=== PATIENT | male | born 1945 | race Caucasian/White ===

== ENCOUNTER 2021-12-10 09:17 | Inpatient (IN) ==
[2021-12-10] MEDS ORDERED: Isovue-370 500 ML BOTTLE IVP ONE (09:30)
[2021-12-10 10:06] LABS: Eosinophils % 1.7 %; Mean Corpuscular Hemoglobin 30.8 pg (28.0-33.3); Monocytes % 5.7 %; Red Cell Distribution Width 14.2 % (11.5-14.5)
[2021-12-10 10:08] LABS: Basophils % 0.5 %; Eosinophils # 0.1 K/mcL (0.0-0.6); Hematocrit 42.5 % (37.5-50.1); Hemoglobin 13.9 g/dL (12.9-16.9); Immature Granulocytes % 0.9 % (0-4); Immature Platelets 8.2 % (1.1-6.1); Lymphocytes # 0.7 K/mcL (0.6-4.6); Lymphocytes % 11.5 %; Mean Corpuscular HGB Conc 32.7 g/dL (31.6-35.5); Mean Platelet Volume 11.7 fL (9.4-12.4); Monocytes # 0.3 K/mcL (0.0-1.3); Red Blood Count 4.52 M/mcL (4.19-5.50); Segmented Neutrophils % 79.7 %; White Blood Count 5.8 K/mcL (4.3-11.1)
[2021-12-10 10:10] LABS: Neutrophils # 4.6 K/mcL (1.6-8.9); Platelet Count 98 K/mcL (140-400)
[2021-12-10 10:24] LABS: Albumin 3.7 g/dL (3.5-5.7); Albumin/Globulin Ratio 1.9 (1.1-2.2); Bilirubin,Direct 0.3 mg/dL (0.0-0.2); Bilirubin,Indirect 0.8 mg/dL (0.0-1.0); Bilirubin,Total 1.1 mg/dL (0.3-1.0); Globulin 1.9 g/dL (2.4-3.5); Total Protein 5.6 g/dL (6.4-8.9)
[2021-12-10 10:26] LABS: BUN/Creatinine Ratio 15 (6-26); Blood Urea Nitrogen 14 mg/dL (8-23); Calcium 8.3 mg/dL (8.6-10.3); Carbon Dioxide 25 mEq/L (23-29); Chloride 104 mEq/L (98-107); Glucose 145 mg/dL (70-105); Osmolality,Calculated 287 (280-300); Potassium 3.4 mEq/L (3.5-5.1); Sodium 137 mEq/L (136-145); Troponin I < 0.03 ng/mL (< 0.04); eGFR For African Americans > 60 (> 60); eGFR For Non-African Americans > 60 (> 60)
[2021-12-10 12:42] LABS: Bilirubin,Urine Negative (Negative); Blood,Urine Negative (Negative); Clarity,Urine Clear (Clear); Color,Urine Yellow (Yellow); Glucose,Urine (UA) 70 mg/dL (Normal); Granular Casts,Urine Few per lpf (None Seen); Hyaline Casts,Urine Moderate per lpf (None Seen); Ketones,Urine 10 mg/dL (Negative); Leukocyte Esterase,Urine Negative (Negative); Mucus,Urine Few per lpf (None-Few); Nitrite,Urine Negative (Negative); PH,Urine 5.5 pH Units (5.0-8.0); Protein,Urine 70 mg/dL (Neg-Trace); Specific Gravity,Urine > 1.030 (1.010-1.025); Squamous Epithelial Cell,Urine Few per hpf (None-Few)
[2021-12-10] MEDS ORDERED: Naloxone 0.4 MG/ML INJ IVP PRN ×2 (13:38→20:47)
[2021-12-10] MEDS ORDERED: Ondansetron ODT 4 MG TAB.RAPDIS SL PRN ×2 (13:38→20:47)
[2021-12-10] MEDS ORDERED: Melatonin 3 MG TABLET PO PRN (13:38)
[2021-12-10] MEDS ORDERED: Dextrose 4 GM Chewable Tablets PO PRN ×4 (13:43→20:47)
[2021-12-10] MEDS ORDERED: *HR* Dextrose 50 % in Water (Syg) 50 ML SYRINGE IVP PRN (13:43)
[2021-12-10] MEDS ORDERED: D5% in Water 1,000 ML IVC PRN ×2 (13:43→20:47)
[2021-12-10] MEDS ORDERED: 0.9 % Sodium Chloride 1,000 ML IVC SCH (14:00)
[2021-12-10] MEDS ORDERED: Morphine Sulfate 2 MG/ML SYRINGE IVP ONE (14:03)
[2021-12-10 14:52] LABS: INR 1.1; Prothrombin Time 12.5 Seconds (9.4-12.1)
[2021-12-10] MEDS ORDERED: Lidocaine -MPF 4% 5 ML AMPUL ONE (15:14)
[2021-12-10] MEDS ORDERED: *HR* FentaNYL (PF) 100 MCG/2 ML VIAL ONE ×2 (15:38→17:58)
[2021-12-10] MEDS ORDERED: *HR* Propofol 200 MG/20 ML VIAL IVP ONE (15:38)
[2021-12-10] MEDS ORDERED: *HR* Rocuronium Bromide 50 MG/5 ML VIAL ONE (15:38)
[2021-12-10] MEDS ORDERED: Ondansetron 4 MG/2 ML VIAL ONE (15:38)
[2021-12-10] MEDS ORDERED: Lidocaine -MPF 2% 5 ML VIAL ONE (15:38)
[2021-12-10] MEDS ORDERED: Albuterol 2.5 MG/3 ML NEBULIZER IH ONE (15:47)
[2021-12-10] MEDS ORDERED: Albuterol 2.5 MG/3 ML NEBULIZER IH PRN (15:48)
[2021-12-10] MEDS ORDERED: Ondansetron 4 MG/2 ML VIAL IVP PRN (15:48)
[2021-12-10] MEDS: Ipratropium/Albuterol Neb 3 ML IH SCH ×3 (15:58→23:42)
[2021-12-10] MEDS ORDERED: Piperacillin/Tazobactam 3.375 GM in 0.9 % Sodium Chloride Mini Bag 100 ML IVPB SCH (16:00)
[2021-12-10] MEDS ORDERED: Ketamine HCL *QUVA* 50mg (1mL) SYRINGE ONE (16:04)
[2021-12-10] MEDS ORDERED: Albumin Human 5% 0 GM/0 ML IV.SOLN ONE (16:05)
[2021-12-10 16:38] LABS: Estimated Average Glucose 174 mg/dl; Hemoglobin A1C 7.7 %
[2021-12-10] MEDS ORDERED: CeFAZolin Syr 3,000MG/30 ML 3,000 MG/30 ML SYRINGE IVPB ONE (17:00)
[2021-12-10] MEDS ORDERED: *HR* Labetalol 20 MG/4 ML SYRINGE IVP ONE (17:25)
[2021-12-10] MEDS ORDERED: *HR* Metoprolol 5 MG/5 ML VIAL IVP ONE (17:32)
[2021-12-10] MEDS ORDERED: Acetaminophen IV 1,000 MG/100 ML BAG IVPB ONE (17:33)
[2021-12-10] MEDS ORDERED: Insulin LISPRO 300 UNITS/3 ML VIAL SUBQ SCH (18:00)
[2021-12-10] MEDS ORDERED: *HR* HYDROMORPHONE 2 MG/ML VIAL ONE (18:16)
[2021-12-10] MEDS: *HR* FentaNYL (PF) 100 MCG/2 ML VIAL IVP PRN ×2 (19:15→19:36)
[2021-12-10] MEDS ORDERED: Ketorolac 30 MG/ML VIAL IVP ONE (20:02)
[2021-12-10] MEDS: cloNIDine HCL 0.1 MG TABLET PO ONE ×3 (20:13→20:36)
[2021-12-10] MEDS ORDERED: Ringers Solution, Lactated 1,000 ML ONE (20:24)
[2021-12-10] MEDS: 0.9 % Sodium Chloride 1,000 ML IVC SCH (21:21)
[2021-12-10] MEDS: Acetaminophen IV 1,000 MG/100 ML BAG IVPB SCH (23:14)
[2021-12-10] MEDS: Piperacillin/Tazobactam 3.375 GM in 0.9 % Sodium Chloride Mini Bag 100 ML IVPB SCH (23:41)
[2021-12-11] MEDS: Insulin LISPRO 300 UNITS/3 ML VIAL SUBQ SCH ×4 (00:06→17:47)
[2021-12-11] MEDS: Ipratropium/Albuterol Neb 3 ML IH SCH ×3 (04:05→11:27)
[2021-12-11] MEDS: Acetaminophen IV 1,000 MG/100 ML BAG IVPB SCH ×3 (05:56→17:47)
[2021-12-11] MEDS: *HR* Heparin 5,000 UNIT/ML VIAL SQ SCH ×3 (05:57→20:52)
[2021-12-11] MEDS ORDERED: *HR* Heparin 5,000 UNIT/ML VIAL SQ SCH (06:00)
[2021-12-11] MEDS: 0.9 % Sodium Chloride 1,000 ML IVC SCH (06:55)
[2021-12-11 08:04] LABS: Eosinophils % 0.3 %; Immature Granulocytes % 0.3 % (0-4); Mean Corpuscular Hemoglobin 31.5 pg (28.0-33.3); Red Blood Count 4.13 M/mcL (4.19-5.50); Red Cell Distribution Width 14.4 % (11.5-14.5)
[2021-12-11 08:06] LABS: Basophils % 0.4 %; Hematocrit 38.2 % (37.5-50.1); Immature Platelets 9.6 % (1.1-6.1); Lymphocytes # 0.9 K/mcL (0.6-4.6); Mean Corpuscular Volume 92.5 fL (83.0-100.0); Monocytes # 0.5 K/mcL (0.0-1.3); Monocytes % 7.2 %; Neutrophils # 5.3 K/mcL (1.6-8.9); Segmented Neutrophils % 78.8 %; White Blood Count 6.7 K/mcL (4.3-11.1)
[2021-12-11 08:08] LABS: Platelet Count 94 K/mcL (140-400)
[2021-12-11 08:22] LABS: Alanine Aminotransferase 18 Units/L (7-52); Albumin 3.4 g/dL (3.5-5.7); Alkaline Phosphatase 73 Units/L (34-104); Aspartate Amino Transferase 13 Units/L (13-39); BUN/Creatinine Ratio 22 (6-26); Bilirubin,Total 1.3 mg/dL (0.3-1.0); Blood Urea Nitrogen 17 mg/dL (8-23); Carbon Dioxide 26 mEq/L (23-29); Chloride 101 mEq/L (98-107); Globulin 1.7 g/dL (2.4-3.5); Glucose 156 mg/dL (70-105); Magnesium 1.6 mg/dL (1.6-2.6); Osmolality,Calculated 285 (280-300); Potassium 3.6 mEq/L (3.5-5.1); Sodium 135 mEq/L (136-145); Total Protein 5.1 g/dL (6.4-8.9); eGFR For African Americans > 60 (> 60); eGFR For Non-African Americans > 60 (> 60)
[2021-12-11] MEDS: Piperacillin/Tazobactam 3.375 GM in 0.9 % Sodium Chloride Mini Bag 100 ML IVPB SCH ×2 (10:39→16:39)
[2021-12-12] MEDS: Insulin LISPRO 300 UNITS/3 ML VIAL SUBQ SCH ×4 (00:01→17:52)
[2021-12-12] MEDS: Acetaminophen IV 1,000 MG/100 ML BAG IVPB SCH ×4 (05:46→17:51)
[2021-12-12] MEDS: *HR* Heparin 5,000 UNIT/ML VIAL SQ SCH ×3 (05:47→21:16)
[2021-12-12 06:08] LABS: Hemoglobin 12.5 g/dL (12.9-16.9); Immature Granulocytes % 0.4 % (0-4); Mean Platelet Volume 11.5 fL (9.4-12.4)
[2021-12-12 06:10] LABS: Basophils % 0.8 %; Eosinophils # 0.1 K/mcL (0.0-0.6); Eosinophils % 2.1 %; Hematocrit 36.9 % (37.5-50.1); Lymphocytes # 0.7 K/mcL (0.6-4.6); Lymphocytes % 14.9 %; Mean Corpuscular HGB Conc 33.9 g/dL (31.6-35.5); Mean Corpuscular Hemoglobin 31.1 pg (28.0-33.3); Mean Corpuscular Volume 91.8 fL (83.0-100.0); Monocytes # 0.3 K/mcL (0.0-1.3); Monocytes % 6.8 %; Neutrophils # 3.5 K/mcL (1.6-8.9); Red Blood Count 4.02 M/mcL (4.19-5.50); Red Cell Distribution Width 14.1 % (11.5-14.5); White Blood Count 4.7 K/mcL (4.3-11.1)
[2021-12-12 06:29] LABS: BUN/Creatinine Ratio 17 (6-26); Blood Urea Nitrogen 12 mg/dL (8-23); Calcium 7.9 mg/dL (8.6-10.3); Carbon Dioxide 29 mEq/L (23-29); Chloride 100 mEq/L (98-107); Glucose 159 mg/dL (70-105); Magnesium 1.9 mg/dL (1.6-2.6); Osmolality,Calculated 281 (280-300); Potassium 3.3 mEq/L (3.5-5.1); Sodium 134 mEq/L (136-145); eGFR For African Americans > 60 (> 60); eGFR For Non-African Americans > 60 (> 60)
[2021-12-12 06:37] LABS: Platelet Count 83 K/mcL (140-400)
[2021-12-12] MEDS: Piperacillin/Tazobactam 3.375 GM in 0.9 % Sodium Chloride Mini Bag 100 ML IVPB SCH ×3 (08:28→16:32)
[2021-12-12] MEDS ORDERED: *HR* Labetalol 20 MG/4 ML SYRINGE IVP ONE (12:52)
[2021-12-12] MEDS: amLODIPine 5 MG TABLET PO SCH (13:48)
[2021-12-12] MEDS: *HR* Labetalol 20 MG/4 ML SYRINGE IVP PRN (17:59)
[2021-12-13] MEDS: Acetaminophen IV 1,000 MG/100 ML BAG IVPB SCH ×4 (00:03→18:08)
[2021-12-13] MEDS: Piperacillin/Tazobactam 3.375 GM in 0.9 % Sodium Chloride Mini Bag 100 ML IVPB SCH ×3 (00:03→16:16)
[2021-12-13] MEDS: Insulin LISPRO 300 UNITS/3 ML VIAL SUBQ SCH ×4 (00:16→18:18)
[2021-12-13 06:38] LABS: Basophils # 0.1 K/mcL (0.0-0.2); Basophils % 1.2 %; Eosinophils # 0.2 K/mcL (0.0-0.6); Eosinophils % 3.5 %; Hematocrit 40.8 % (37.5-50.1); Hemoglobin 13.6 g/dL (12.9-16.9); Immature Granulocytes % 0.7 % (0-4); Immature Platelets 9.3 % (1.1-6.1); Lymphocytes # 0.9 K/mcL (0.6-4.6); Lymphocytes % 20.7 %; Mean Corpuscular HGB Conc 33.3 g/dL (31.6-35.5); Mean Corpuscular Hemoglobin 30.7 pg (28.0-33.3); Mean Corpuscular Volume 92.1 fL (83.0-100.0); Mean Platelet Volume 11.6 fL (9.4-12.4); Monocytes # 0.3 K/mcL (0.0-1.3); Monocytes % 7.2 %; Neutrophils # 2.9 K/mcL (1.6-8.9); Red Blood Count 4.43 M/mcL (4.19-5.50); Red Cell Distribution Width 13.9 % (11.5-14.5); Segmented Neutrophils % 66.7 %; White Blood Count 4.3 K/mcL (4.3-11.1)
[2021-12-13 06:39] LABS: Platelet Count 84 K/mcL (140-400)
[2021-12-13] MEDS: *HR* Heparin 5,000 UNIT/ML VIAL SQ SCH ×3 (06:49→20:42)
[2021-12-13 07:30] LABS: BUN/Creatinine Ratio 18 (6-26); Blood Urea Nitrogen 11 mg/dL (8-23); Calcium 8.5 mg/dL (8.6-10.3); Carbon Dioxide 23 mEq/L (23-29); Chloride 99 mEq/L (98-107); Glucose 188 mg/dL (70-105); Magnesium 1.9 mg/dL (1.6-2.6); Osmolality,Calculated 280 (280-300); Potassium 3.5 mEq/L (3.5-5.1); Sodium 133 mEq/L (136-145); eGFR For African Americans > 60 (> 60); eGFR For Non-African Americans > 60 (> 60)
[2021-12-13] MEDS: amLODIPine 5 MG TABLET PO SCH (08:27)
[2021-12-13] MEDS: *HR* Labetalol 20 MG/4 ML SYRINGE IVP PRN (13:52)
[2021-12-13] MEDS: carvediloL 6.25 MG TABLET PO SCH ×2 (16:15→20:42)
[2021-12-14] MEDS: Acetaminophen IV 1,000 MG/100 ML BAG IVPB SCH ×4 (00:15→18:40)
[2021-12-14] MEDS: Insulin LISPRO 300 UNITS/3 ML VIAL SUBQ SCH ×6 (00:16→23:20)
[2021-12-14] MEDS: *HR* Labetalol 20 MG/4 ML SYRINGE IVP PRN ×2 (00:38→23:20)
[2021-12-14] MEDS: Piperacillin/Tazobactam 3.375 GM in 0.9 % Sodium Chloride Mini Bag 100 ML IVPB SCH ×3 (00:38→18:39)
[2021-12-14 01:52] LABS: Basophils % 0.7 %; Eosinophils # 0.1 K/mcL (0.0-0.6); Eosinophils % 1.4 %; Hematocrit 42.2 % (37.5-50.1); Hemoglobin 14.1 g/dL (12.9-16.9); Immature Granulocytes % 0.7 % (0-4); Lymphocytes # 0.6 K/mcL (0.6-4.6); Lymphocytes % 10.1 %; Mean Corpuscular HGB Conc 33.4 g/dL (31.6-35.5); Mean Corpuscular Hemoglobin 30.5 pg (28.0-33.3); Mean Corpuscular Volume 91.1 fL (83.0-100.0); Mean Platelet Volume 11.8 fL (9.4-12.4); Monocytes # 0.5 K/mcL (0.0-1.3); Monocytes % 7.7 %; Neutrophils # 4.6 K/mcL (1.6-8.9); Platelet Count 116 K/mcL (140-400); Red Blood Count 4.63 M/mcL (4.19-5.50); Red Cell Distribution Width 13.9 % (11.5-14.5); Segmented Neutrophils % 79.4 %; White Blood Count 5.8 K/mcL (4.3-11.1)
[2021-12-14 02:40] LABS: BUN/Creatinine Ratio 24 (6-26); Blood Urea Nitrogen 18 mg/dL (8-23); Calcium 8.5 mg/dL (8.6-10.3); Carbon Dioxide 27 mEq/L (23-29); Chloride 95 mEq/L (98-107); Glucose 263 mg/dL (70-105); Osmolality,Calculated 283 (280-300); Potassium 3.5 mEq/L (3.5-5.1); Sodium 131 mEq/L (136-145); eGFR For African Americans > 60 (> 60); eGFR For Non-African Americans > 60 (> 60)
[2021-12-14] MEDS: *HR* Heparin 5,000 UNIT/ML VIAL SQ SCH ×3 (06:26→21:52)
[2021-12-14] MEDS: carvediloL 6.25 MG TABLET PO SCH ×2 (08:50→22:07)
[2021-12-14] MEDS: amLODIPine 5 MG TABLET PO SCH (08:50)
[2021-12-14 10:32] LABS: Magnesium 1.9 mg/dL (1.6-2.6); Phosphorous 3.6 mg/dL (2.7-4.5); Triglycerides 129 mg/dL (< 150)
[2021-12-14] MEDS: Metoclopramide 10 MG/2 ML VIAL IVP SCH ×3 (11:54→23:20)
[2021-12-14] MEDS ORDERED: D10% in Water 500 ML IVC PRN (12:11)
[2021-12-14] MEDS ORDERED: Lidocaine -MPF 1% 5 ML AMPUL INFILT ONE (12:53)
[2021-12-14] MEDS ORDERED: Clinimix E 5%-15% SOLUTION 2,000 ML with MVI, adult with vitamin K 10 ML IVC SCH (17:00)
[2021-12-15] MEDS: Piperacillin/Tazobactam 3.375 GM in 0.9 % Sodium Chloride Mini Bag 100 ML IVPB SCH ×3 (00:12→17:27)
[2021-12-15] MEDS: Acetaminophen IV 1,000 MG/100 ML BAG IVPB SCH ×4 (00:14→19:40)
[2021-12-15] MEDS: Insulin LISPRO 300 UNITS/3 ML VIAL SUBQ SCH ×5 (03:18→21:32)
[2021-12-15 05:01] LABS: Hemoglobin 14.2 g/dL (12.9-16.9); Red Cell Distribution Width 14.4 % (11.5-14.5)
[2021-12-15 05:02] LABS: Basophils % 0.6 %; Eosinophils # 0.1 K/mcL (0.0-0.6); Eosinophils % 1.2 %; Hematocrit 42.7 % (37.5-50.1); Immature Granulocytes % 0.3 % (0-4); Immature Platelets 7.9 % (1.1-6.1); Lymphocytes # 0.7 K/mcL (0.6-4.6); Mean Corpuscular HGB Conc 33.3 g/dL (31.6-35.5); Mean Corpuscular Hemoglobin 30.7 pg (28.0-33.3); Mean Corpuscular Volume 92.4 fL (83.0-100.0); Mean Platelet Volume 11.3 fL (9.4-12.4); Monocytes # 0.6 K/mcL (0.0-1.3); Monocytes % 7.6 %; Platelet Count 132 K/mcL (140-400); Red Blood Count 4.62 M/mcL (4.19-5.50); Segmented Neutrophils % 80.3 %; White Blood Count 7.3 K/mcL (4.3-11.1)
[2021-12-15 05:04] LABS: Neutrophils # 5.9 K/mcL (1.6-8.9)
[2021-12-15 05:21] LABS: Alanine Aminotransferase 35 Units/L (7-52); Albumin 3.4 g/dL (3.5-5.7); Albumin/Globulin Ratio 1.5 (1.1-2.2); Alkaline Phosphatase 64 Units/L (34-104); Aspartate Amino Transferase 41 Units/L (13-39); BUN/Creatinine Ratio 37 (6-26); Blood Urea Nitrogen 31 mg/dL (8-23); Calcium 8.9 mg/dL (8.6-10.3); Carbon Dioxide 33 mEq/L (23-29); Chloride 95 mEq/L (98-107); Globulin 2.2 g/dL (2.4-3.5); Glucose 233 mg/dL (70-105); Magnesium 2.1 mg/dL (1.6-2.6); Osmolality,Calculated 294 (280-300); Phosphorous 3.5 mg/dL (2.7-4.5); Sodium 135 mEq/L (136-145); Total Protein 5.6 g/dL (6.4-8.9); eGFR For African Americans > 60 (> 60); eGFR For Non-African Americans > 60 (> 60)
[2021-12-15] MEDS: carvediloL 6.25 MG TABLET PO SCH ×2 (07:22→19:40)
[2021-12-15] MEDS: amLODIPine 5 MG TABLET PO SCH (07:22)
[2021-12-15] MEDS: *HR* Heparin 5,000 UNIT/ML VIAL SQ SCH ×3 (07:46→23:53)
[2021-12-15] MEDS: Metoclopramide 10 MG/2 ML VIAL IVP SCH ×3 (07:46→17:49)
[2021-12-15] MEDS: *HR* Labetalol 20 MG/4 ML SYRINGE IVP PRN (09:19)
[2021-12-15] MEDS ORDERED: Clinimix E 5%-15% SOLUTION 2,000 ML IVC SCH (17:00)
[2021-12-16] MEDS: Metoclopramide 10 MG/2 ML VIAL IVP SCH ×2 (00:08→05:10)
[2021-12-16] MEDS: Insulin LISPRO 300 UNITS/3 ML VIAL SUBQ SCH ×6 (00:08→22:14)
[2021-12-16] MEDS: Acetaminophen IV 1,000 MG/100 ML BAG IVPB SCH ×4 (00:09→17:48)
[2021-12-16] MEDS: Piperacillin/Tazobactam 3.375 GM in 0.9 % Sodium Chloride Mini Bag 100 ML IVPB SCH ×3 (02:40→17:48)
[2021-12-16] MEDS: *HR* Labetalol 20 MG/4 ML SYRINGE IVP PRN ×2 (03:10→12:51)
[2021-12-16] MEDS: *HR* Heparin 5,000 UNIT/ML VIAL SQ SCH ×3 (05:00→22:14)
[2021-12-16 05:59] LABS: Alanine Aminotransferase 51 Units/L (7-52); Albumin 3.2 g/dL (3.5-5.7); Albumin/Globulin Ratio 1.5 (1.1-2.2); Alkaline Phosphatase 65 Units/L (34-104); Aspartate Amino Transferase 40 Units/L (13-39); BUN/Creatinine Ratio 39 (6-26); Blood Urea Nitrogen 26 mg/dL (8-23); Calcium 7.8 mg/dL (8.6-10.3); Carbon Dioxide 29 mEq/L (23-29); Chloride 93 mEq/L (98-107); Globulin 2.2 g/dL (2.4-3.5); Glucose 297 mg/dL (70-105); Magnesium 1.8 mg/dL (1.6-2.6); Osmolality,Calculated 294 (280-300); Phosphorous 2.7 mg/dL (2.7-4.5); Potassium 2.9 mEq/L (3.5-5.1); Sodium 134 mEq/L (136-145); Total Protein 5.4 g/dL (6.4-8.9); eGFR For African Americans > 60 (> 60); eGFR For Non-African Americans > 60 (> 60)
[2021-12-16] MEDS: NIFEdipine XL (24 HR) 60 MG TAB.ER.24 PO SCH ×2 (06:21→06:35)
[2021-12-16] MEDS ORDERED: Calcium Gluconate 1gm/50mL 1 GM/50 ML BAG IVPB ONE (06:36)
[2021-12-16 06:46] LABS: Basophils % 0.4 %; Hematocrit 39.6 % (37.5-50.1); Hemoglobin 13.3 g/dL (12.9-16.9); Immature Granulocytes % 0.6 % (0-4); Immature Platelets 6.9 % (1.1-6.1); Lymphocytes # 0.3 K/mcL (0.6-4.6); Lymphocytes % 6.5 %; Mean Corpuscular HGB Conc 33.6 g/dL (31.6-35.5); Mean Corpuscular Hemoglobin 30.9 pg (28.0-33.3); Mean Corpuscular Volume 91.9 fL (83.0-100.0); Mean Platelet Volume 11.3 fL (9.4-12.4); Monocytes # 0.5 K/mcL (0.0-1.3); Monocytes % 9.1 %; Neutrophils # 4.1 K/mcL (1.6-8.9); Platelet Count 108 K/mcL (140-400); Red Blood Count 4.31 M/mcL (4.19-5.50); Red Cell Distribution Width 14.5 % (11.5-14.5); Segmented Neutrophils % 83.4 %; White Blood Count 4.9 K/mcL (4.3-11.1)
[2021-12-16] MEDS ORDERED: Methylnaltrexone 12 MG/0.6 ML SYRINGE SQ ONE (07:40)
[2021-12-16] MEDS: lisinopriL 5 MG TABLET PO SCH (08:28)
[2021-12-16] MEDS: carvediloL 6.25 MG TABLET PO SCH ×2 (08:28→22:14)
[2021-12-16] MEDS ORDERED: Pantoprazole 80 MG in 0.9 % Sodium Chloride 50 ML IVPB ONE (09:15)
[2021-12-16] MEDS: Insulin DETEMIR 100 UNIT/ML X5UNITS SUBQ SCH ×2 (10:06→22:17)
[2021-12-16] MEDS ORDERED: Metoclopramide 20 MG in 0.9 % Sodium Chloride 50 ML IVPB SCH (12:00)
[2021-12-16] MEDS ORDERED: Clinimix E 5%-15% SOLUTION 2,000 ML with MVI, adult with vitamin K 10 ML IVC SCH (17:00)
[2021-12-16] MEDS ORDERED: Clinimix 5%-20% SOLUTION 2,000 ML with MVI, adult with vitamin K 10 ML IVC SCH (17:00)
[2021-12-16 17:01] LABS: BUN/Creatinine Ratio 37 (6-26); Blood Urea Nitrogen 30 mg/dL (8-23); Calcium 8.8 mg/dL (8.6-10.3); Carbon Dioxide 31 mEq/L (23-29); Chloride 97 mEq/L (98-107); Glucose 290 mg/dL (70-105); Osmolality,Calculated 299 (280-300); Potassium 3.3 mEq/L (3.5-5.1); Sodium 136 mEq/L (136-145); eGFR For African Americans > 60 (> 60); eGFR For Non-African Americans > 60 (> 60)
[2021-12-16] MEDS: Pantoprazole 40 MG VIAL IVP SCH (17:48)
[2021-12-17] MEDS: Acetaminophen IV 1,000 MG/100 ML BAG IVPB SCH ×5 (00:57→23:07)
[2021-12-17] MEDS: Insulin LISPRO 300 UNITS/3 ML VIAL SUBQ SCH ×6 (00:59→21:09)
[2021-12-17] MEDS: Piperacillin/Tazobactam 3.375 GM in 0.9 % Sodium Chloride Mini Bag 100 ML IVPB SCH ×3 (01:21→17:52)
[2021-12-17] MEDS: *HR* Heparin 5,000 UNIT/ML VIAL SQ SCH ×3 (05:46→21:09)
[2021-12-17] MEDS: Pantoprazole 40 MG VIAL IVP SCH ×2 (05:47→17:52)
[2021-12-17 07:28] LABS: Mean Corpuscular HGB Conc 33.4 g/dL (31.6-35.5); Red Cell Distribution Width 14.8 % (11.5-14.5)
[2021-12-17 07:30] LABS: Hematocrit 40.1 % (37.5-50.1); Hemoglobin 13.4 g/dL (12.9-16.9); Immature Platelets 7.3 % (1.1-6.1); Mean Corpuscular Hemoglobin 31.5 pg (28.0-33.3); Mean Corpuscular Volume 94.4 fL (83.0-100.0); Mean Platelet Volume 11.8 fL (9.4-12.4); Platelet Count 110 K/mcL (140-400); Red Blood Count 4.25 M/mcL (4.19-5.50); White Blood Count 6.8 K/mcL (4.3-11.1)
[2021-12-17 08:23] LABS: Alanine Aminotransferase 38 Units/L (7-52); Albumin 3.2 g/dL (3.5-5.7); Albumin/Globulin Ratio 1.5 (1.1-2.2); Alkaline Phosphatase 66 Units/L (34-104); Aspartate Amino Transferase 21 Units/L (13-39); BUN/Creatinine Ratio 41 (6-26); Bilirubin,Total 0.9 mg/dL (0.3-1.0); Blood Urea Nitrogen 34 mg/dL (8-23); Calcium 8.5 mg/dL (8.6-10.3); Carbon Dioxide 31 mEq/L (23-29); Chloride 96 mEq/L (98-107); Globulin 2.1 g/dL (2.4-3.5); Glucose 235 mg/dL (70-105); Magnesium 2.4 mg/dL (1.6-2.6); Osmolality,Calculated 295 (280-300); Phosphorous 3.5 mg/dL (2.7-4.5); Potassium 3.1 mEq/L (3.5-5.1); Sodium 135 mEq/L (136-145); Total Protein 5.3 g/dL (6.4-8.9); eGFR For African Americans > 60 (> 60); eGFR For Non-African Americans > 60 (> 60)
[2021-12-17] MEDS: carvediloL 6.25 MG TABLET PO SCH ×2 (08:37→23:54)
[2021-12-17] MEDS: lisinopriL 5 MG TABLET PO SCH (08:37)
[2021-12-17 09:16] LABS: Lymphocytes # 0.7 K/mcL (0.6-4.6); Neutrophils # 5.1 K/mcL (1.6-8.9); Platelet Estimate Slight Decrease (Normal)
[2021-12-17] MEDS ORDERED: Chloraseptic Spray 177 ML BOTTLE MM PRN (10:43)
[2021-12-17] MEDS ORDERED: Saliva Stimulant 44.3ml BOTTLE PO PRN (10:43)
[2021-12-17] MEDS: Insulin DETEMIR 100 UNIT/ML X5UNITS SUBQ SCH ×2 (11:02→21:24)
[2021-12-17] MEDS: NIFEdipine XL (24 HR) 60 MG TAB.ER.24 PO SCH (11:15)
[2021-12-17] MEDS ORDERED: Clinimix E 5%-15% SOLUTION 2,000 ML IVC SCH (17:00)
[2021-12-17] MEDS ORDERED: 0.9 % Sodium Chloride 500 ML IVC ONE (19:02)
[2021-12-18] MEDS: Insulin LISPRO 300 UNITS/3 ML VIAL SUBQ SCH ×6 (00:46→21:03)
[2021-12-18] MEDS: Piperacillin/Tazobactam 3.375 GM in 0.9 % Sodium Chloride Mini Bag 100 ML IVPB SCH ×3 (02:28→17:54)
[2021-12-18 05:03] LABS: Hemoglobin 13.3 g/dL (12.9-16.9); Mean Platelet Volume 11.7 fL (9.4-12.4); Red Cell Distribution Width 14.9 % (11.5-14.5)
[2021-12-18 05:05] LABS: Basophils % 0.4 %; Eosinophils % 0.4 %; Hematocrit 40.1 % (37.5-50.1); Immature Granulocytes % 0.6 % (0-4); Immature Platelets 9.1 % (1.1-6.1); Lymphocytes # 0.7 K/mcL (0.6-4.6); Mean Corpuscular HGB Conc 33.2 g/dL (31.6-35.5); Mean Corpuscular Hemoglobin 30.5 pg (28.0-33.3); Monocytes # 0.9 K/mcL (0.0-1.3); Monocytes % 10.4 %; Neutrophils # 6.8 K/mcL (1.6-8.9); Platelet Count 107 K/mcL (140-400); Red Blood Count 4.36 M/mcL (4.19-5.50); Segmented Neutrophils % 80.2 %; White Blood Count 8.5 K/mcL (4.3-11.1)
[2021-12-18 05:24] LABS: Alanine Aminotransferase 33 Units/L (7-52); Albumin/Globulin Ratio 1.3 (1.1-2.2); Alkaline Phosphatase 74 Units/L (34-104); Aspartate Amino Transferase 17 Units/L (13-39); BUN/Creatinine Ratio 58 (6-26); Bilirubin,Total 0.8 mg/dL (0.3-1.0); Blood Urea Nitrogen 41 mg/dL (8-23); Calcium 8.6 mg/dL (8.6-10.3); Carbon Dioxide 29 mEq/L (23-29); Chloride 97 mEq/L (98-107); Globulin 2.4 g/dL (2.4-3.5); Glucose 211 mg/dL (70-105); Magnesium 2.2 mg/dL (1.6-2.6); Osmolality,Calculated 296 (280-300); Phosphorous 3.8 mg/dL (2.7-4.5); Potassium 3.2 mEq/L (3.5-5.1); Sodium 135 mEq/L (136-145); Total Protein 5.4 g/dL (6.4-8.9); eGFR For African Americans > 60 (> 60); eGFR For Non-African Americans > 60 (> 60)
[2021-12-18 05:46] LABS: Platelet Estimate Decreased (Normal)
[2021-12-18] MEDS: *HR* Heparin 5,000 UNIT/ML VIAL SQ SCH ×3 (06:39→21:01)
[2021-12-18] MEDS: Pantoprazole 40 MG VIAL IVP SCH ×2 (06:46→17:55)
[2021-12-18] MEDS ORDERED: Isovue-370 500 ML BOTTLE IVP ONE (06:47)
[2021-12-18] MEDS: Acetaminophen IV 1,000 MG/100 ML BAG IVPB SCH ×3 (06:52→18:23)
[2021-12-18] MEDS: Insulin DETEMIR 100 UNIT/ML X5UNITS SUBQ SCH ×2 (09:56→21:03)
[2021-12-18] MEDS: carvediloL 6.25 MG TABLET PO SCH ×2 (09:59→21:01)
[2021-12-18] MEDS: NIFEdipine XL (24 HR) 60 MG TAB.ER.24 PO SCH (09:59)
[2021-12-18] MEDS: lisinopriL 5 MG TABLET PO SCH (09:59)
[2021-12-18] MEDS ORDERED: Albumin 25% 25gram/100mL 25 GM/100 ML IV.SOLN IVPB ONE (10:16)
[2021-12-18] MEDS ORDERED: Furosemide 40 MG/4 ML VIAL IVP ONE (12:00)
[2021-12-18] MEDS ORDERED: Haloperidol Lactate 5 MG/ML VIAL IVP ONE (14:32)
[2021-12-18] MEDS: Nicotine 21 MG PATCH.TD24 TD SCH (15:01)
[2021-12-18] MEDS ORDERED: Clinimix E 5%-15% SOLUTION 2,000 ML, Amino Acids 10% 200 ML with MVI, adult with vita... IVC SCH (17:00)
[2021-12-18] MEDS ORDERED: Insulin DETEMIR 100 UNIT/ML X5UNITS SUBQ SCH (21:00)
[2021-12-19] MEDS: Acetaminophen IV 1,000 MG/100 ML BAG IVPB SCH ×4 (00:48→16:45)
[2021-12-19] MEDS: Insulin LISPRO 300 UNITS/3 ML VIAL SUBQ SCH ×7 (00:49→23:28)
[2021-12-19] MEDS: Piperacillin/Tazobactam 3.375 GM in 0.9 % Sodium Chloride Mini Bag 100 ML IVPB SCH ×3 (01:41→16:42)
[2021-12-19] MEDS: *HR* Heparin 5,000 UNIT/ML VIAL SQ SCH ×3 (05:34→20:47)
[2021-12-19 05:40] LABS: Basophils % 0.4 %; Eosinophils # 0.1 K/mcL (0.0-0.6); Hematocrit 37.9 % (37.5-50.1); Hemoglobin 12.6 g/dL (12.9-16.9); Immature Platelets 8.5 % (1.1-6.1); Lymphocytes # 0.6 K/mcL (0.6-4.6); Lymphocytes % 7.5 %; Mean Corpuscular HGB Conc 33.2 g/dL (31.6-35.5); Mean Corpuscular Hemoglobin 30.7 pg (28.0-33.3); Mean Corpuscular Volume 92.4 fL (83.0-100.0); Mean Platelet Volume 11.5 fL (9.4-12.4); Monocytes # 0.8 K/mcL (0.0-1.3); Monocytes % 10.6 %; Neutrophils # 5.9 K/mcL (1.6-8.9); Platelet Count 104 K/mcL (140-400); Red Cell Distribution Width 14.7 % (11.5-14.5); Segmented Neutrophils % 79.5 %; White Blood Count 7.4 K/mcL (4.3-11.1)
[2021-12-19 06:26] LABS: BUN/Creatinine Ratio 53 (6-26); Blood Urea Nitrogen 32 mg/dL (8-23); Calcium 8.2 mg/dL (8.6-10.3); Carbon Dioxide 29 mEq/L (23-29); Chloride 98 mEq/L (98-107); Glucose 246 mg/dL (70-105); Osmolality,Calculated 293 (280-300); Phosphorous 4.4 mg/dL (2.7-4.5); Potassium 3.4 mEq/L (3.5-5.1); Sodium 134 mEq/L (136-145); eGFR For African Americans > 60 (> 60); eGFR For Non-African Americans > 60 (> 60)
[2021-12-19] MEDS: Pantoprazole 40 MG VIAL IVP SCH ×2 (06:34→16:43)
[2021-12-19] MEDS: carvediloL 6.25 MG TABLET PO SCH ×2 (07:39→20:44)
[2021-12-19] MEDS: NIFEdipine XL (24 HR) 60 MG TAB.ER.24 PO SCH (07:39)
[2021-12-19] MEDS: lisinopriL 5 MG TABLET PO SCH (07:39)
[2021-12-19] MEDS: Nicotine 21 MG PATCH.TD24 TD SCH (07:44)
[2021-12-19] MEDS: Insulin DETEMIR 100 UNIT/ML X5UNITS SUBQ SCH ×2 (07:47→20:48)
[2021-12-19] MEDS: *HR* Labetalol 20 MG/4 ML SYRINGE IVP PRN (07:47)
[2021-12-19] MEDS ORDERED: Albumin 25% 25gram/100mL 25 GM/100 ML IV.SOLN IVPB ONE (09:25)
[2021-12-19] MEDS ORDERED: Furosemide 40 MG/4 ML VIAL IVP ONE (11:00)
[2021-12-19] MEDS ORDERED: CLINIMIX E IVC SCH (17:00)
[2021-12-19] MEDS ORDERED: AMINO ACIDS 10% IVC SCH (17:00)
[2021-12-20] MEDS: Acetaminophen IV 1,000 MG/100 ML BAG IVPB SCH ×4 (00:28→17:06)
[2021-12-20] MEDS: Piperacillin/Tazobactam 3.375 GM in 0.9 % Sodium Chloride Mini Bag 100 ML IVPB SCH ×3 (01:41→17:03)
[2021-12-20 03:08] LABS: Basophils % 0.3 %; Eosinophils % 0.5 %; Hematocrit 36.5 % (37.5-50.1); Hemoglobin 12.5 g/dL (12.9-16.9); Immature Granulocytes % 0.9 % (0-4); Lymphocytes # 0.6 K/mcL (0.6-4.6); Mean Corpuscular HGB Conc 34.2 g/dL (31.6-35.5); Mean Corpuscular Hemoglobin 31.4 pg (28.0-33.3); Mean Corpuscular Volume 91.7 fL (83.0-100.0); Mean Platelet Volume 12.2 fL (9.4-12.4); Monocytes # 0.9 K/mcL (0.0-1.3); Monocytes % 14.2 %; Neutrophils # 4.9 K/mcL (1.6-8.9); Platelet Count 121 K/mcL (140-400); Red Blood Count 3.98 M/mcL (4.19-5.50); Red Cell Distribution Width 14.6 % (11.5-14.5); Segmented Neutrophils % 75.1 %; White Blood Count 6.5 K/mcL (4.3-11.1)
[2021-12-20 03:29] LABS: BUN/Creatinine Ratio 50 (6-26); Blood Urea Nitrogen 32 mg/dL (8-23); Calcium 8.5 mg/dL (8.6-10.3); Carbon Dioxide 30 mEq/L (23-29); Chloride 94 mEq/L (98-107); Glucose 322 mg/dL (70-105); Magnesium 2.4 mg/dL (1.6-2.6); Osmolality,Calculated 295 (280-300); Phosphorous 3.3 mg/dL (2.7-4.5); Potassium 3.5 mEq/L (3.5-5.1); Sodium 133 mEq/L (136-145); eGFR For African Americans > 60 (> 60); eGFR For Non-African Americans > 60 (> 60)
[2021-12-20] MEDS: Insulin LISPRO 300 UNITS/3 ML VIAL SUBQ SCH ×5 (04:06→20:14)
[2021-12-20] MEDS: *HR* Heparin 5,000 UNIT/ML VIAL SQ SCH ×3 (04:57→22:43)
[2021-12-20] MEDS: Pantoprazole 40 MG VIAL IVP SCH ×2 (04:57→17:03)
[2021-12-20] MEDS: Insulin DETEMIR 100 UNIT/ML X5UNITS SUBQ SCH ×2 (07:47→20:13)
[2021-12-20] MEDS: carvediloL 6.25 MG TABLET PO SCH ×2 (07:49→20:16)
[2021-12-20] MEDS: lisinopriL 5 MG TABLET PO SCH (07:49)
[2021-12-20] MEDS: NIFEdipine XL (24 HR) 60 MG TAB.ER.24 PO SCH (07:49)
[2021-12-20] MEDS: Nicotine 21 MG PATCH.TD24 TD SCH (07:49)
[2021-12-20] MEDS ORDERED: CLINIMIX E IVC SCH (17:00)
[2021-12-20] MEDS ORDERED: AMINO ACIDS 10% IVC SCH (17:00)
[2021-12-20] MEDS: *HR* Labetalol 20 MG/4 ML SYRINGE IVP PRN (18:05)
[2021-12-20] MEDS ORDERED: Vancomycin 1,750 MG in 0.9 % Sodium Chloride 250 ML IVPB SCH (19:00)
[2021-12-20 19:42] LABS: Basophils % 0.5 %; Eosinophils % 0.3 %; Hematocrit 39.7 % (37.5-50.1); Hemoglobin 13.2 g/dL (12.9-16.9); Immature Granulocytes % 1.1 % (0-4); Lymphocytes # 0.6 K/mcL (0.6-4.6); Lymphocytes % 9.6 %; Mean Corpuscular HGB Conc 33.2 g/dL (31.6-35.5); Mean Corpuscular Hemoglobin 30.6 pg (28.0-33.3); Mean Corpuscular Volume 91.9 fL (83.0-100.0); Mean Platelet Volume 12.2 fL (9.4-12.4); Monocytes # 0.8 K/mcL (0.0-1.3); Monocytes % 12.8 %; Neutrophils # 4.8 K/mcL (1.6-8.9); Platelet Count 138 K/mcL (140-400); Red Blood Count 4.32 M/mcL (4.19-5.50); Red Cell Distribution Width 14.7 % (11.5-14.5); Segmented Neutrophils % 75.7 %; White Blood Count 6.4 K/mcL (4.3-11.1)
[2021-12-20 20:04] LABS: Platelet Estimate Decreased (Normal)
[2021-12-20 20:07] LABS: Alanine Aminotransferase 49 Units/L (7-52); Albumin 3.1 g/dL (3.5-5.7); Albumin/Globulin Ratio 1.3 (1.1-2.2); Alkaline Phosphatase 142 Units/L (34-104); Aspartate Amino Transferase 50 Units/L (13-39); BUN/Creatinine Ratio 49 (6-26); Bilirubin,Total 1.4 mg/dL (0.3-1.0); Blood Urea Nitrogen 38 mg/dL (8-23); Calcium 8.6 mg/dL (8.6-10.3); Carbon Dioxide 31 mEq/L (23-29); Chloride 93 mEq/L (98-107); Globulin 2.3 g/dL (2.4-3.5); Glucose 354 mg/dL (70-105); Magnesium 2.4 mg/dL (1.6-2.6); Osmolality,Calculated 295 (280-300); Phosphorous 3.1 mg/dL (2.7-4.5); Potassium 3.7 mEq/L (3.5-5.1); Sodium 131 mEq/L (136-145); Total Protein 5.4 g/dL (6.4-8.9); eGFR For African Americans > 60 (> 60); eGFR For Non-African Americans > 60 (> 60)
[2021-12-20] MEDS: Vancomycin 1,750 MG/517.5 ML IV.SOLN IVPB SCH ×2 (20:15→22:22)
[2021-12-20 20:37] LABS: Troponin I 0.03 ng/mL (< 0.04)
[2021-12-20] MEDS: Ipratropium/Albuterol Neb 3 ML IH PRN (23:41)
[2021-12-21] MEDS: Acetaminophen IV 1,000 MG/100 ML BAG IVPB SCH ×4 (00:23→17:30)
[2021-12-21] MEDS: Insulin LISPRO 300 UNITS/3 ML VIAL SUBQ SCH ×6 (00:25→20:38)
[2021-12-21] MEDS: Piperacillin/Tazobactam 3.375 GM in 0.9 % Sodium Chloride Mini Bag 100 ML IVPB SCH ×3 (01:44→17:30)
[2021-12-21] MEDS: *HR* Heparin 5,000 UNIT/ML VIAL SQ SCH ×3 (06:17→20:47)
[2021-12-21] MEDS: Pantoprazole 40 MG VIAL IVP SCH ×2 (06:17→17:30)
[2021-12-21 07:00] LABS: Basophils # 0.1 K/mcL (0.0-0.2); Basophils % 0.6 %; Eosinophils % 0.5 %; Hematocrit 39.6 % (37.5-50.1); Hemoglobin 13.2 g/dL (12.9-16.9); Immature Granulocytes % 0.9 % (0-4); Lymphocytes # 0.6 K/mcL (0.6-4.6); Lymphocytes % 7.8 %; Mean Corpuscular HGB Conc 33.3 g/dL (31.6-35.5); Mean Corpuscular Hemoglobin 30.2 pg (28.0-33.3); Mean Corpuscular Volume 90.6 fL (83.0-100.0); Mean Platelet Volume 12.1 fL (9.4-12.4); Monocytes # 1.5 K/mcL (0.0-1.3); Monocytes % 19.3 %; Neutrophils # 5.5 K/mcL (1.6-8.9); Platelet Count 147 K/mcL (140-400); Red Blood Count 4.37 M/mcL (4.19-5.50); Red Cell Distribution Width 14.9 % (11.5-14.5); Segmented Neutrophils % 70.9 %; White Blood Count 7.7 K/mcL (4.3-11.1)
[2021-12-21 07:17] LABS: BUN/Creatinine Ratio 62 (6-26); Blood Urea Nitrogen 45 mg/dL (8-23); Calcium 8.6 mg/dL (8.6-10.3); Carbon Dioxide 28 mEq/L (23-29); Chloride 93 mEq/L (98-107); Glucose 414 mg/dL (70-105); Magnesium 2.5 mg/dL (1.6-2.6); Osmolality,Calculated 297 (280-300); Phosphorous 3.9 mg/dL (2.7-4.5); Sodium 129 mEq/L (136-145); eGFR For African Americans > 60 (> 60); eGFR For Non-African Americans > 60 (> 60)
[2021-12-21 09:07] LABS: ABG Base Excess 4 mEq/L (-2 to 3); ABG HCO3 28 mEq/L (21-27); ABG Oxygen Saturation 90 % (95-98); ABG PCO2 38 mmHg (35-45); ABG PH 7.47 pH Units (7.32-7.45); ABG PO2 54 mmHg (85-104); ABG TCO2 29 mEq/L (20-26)
[2021-12-21] MEDS: Nicotine 21 MG PATCH.TD24 TD SCH (09:08)
[2021-12-21] MEDS: Insulin DETEMIR 100 UNIT/ML X5UNITS SUBQ SCH ×2 (09:09→20:37)
[2021-12-21] MEDS: Vancomycin 1,750 MG/517.5 ML IV.SOLN IVPB SCH ×2 (09:25→20:42)
[2021-12-21] MEDS: *HR* Labetalol 20 MG/4 ML SYRINGE IVP PRN (09:26)
[2021-12-21] MEDS: carvediloL 6.25 MG TABLET PO SCH ×2 (09:58→21:33)
[2021-12-21] MEDS: lisinopriL 5 MG TABLET PO SCH (09:59)
[2021-12-21] MEDS: NIFEdipine XL (24 HR) 60 MG TAB.ER.24 PO SCH (09:59)
[2021-12-21] MEDS ORDERED: Isovue-370 500 ML BOTTLE IVP ONE (10:17)
[2021-12-21 12:30] LABS: ABG Base Excess 4 mEq/L (-2 to 3); ABG HCO3 27 mEq/L (21-27); ABG Oxygen Saturation 94 % (95-98); ABG PCO2 33 mmHg (35-45); ABG PH 7.52 pH Units (7.32-7.45); ABG PO2 61 mmHg (85-104); ABG TCO2 28 mEq/L (20-26)
[2021-12-21] MEDS ORDERED: Methylnaltrexone 12 MG/0.6 ML SYRINGE SQ ONE ×2 (14:20→17:45)
[2021-12-21] MEDS ORDERED: Clinimix E 5%-20% SOLUTION 2,000 ML, Amino Acids 10% 200 ML with MVI, adult with vita... IVC SCH (17:00)
[2021-12-22] MEDS: Insulin LISPRO 300 UNITS/3 ML VIAL SUBQ SCH ×7 (00:11→23:33)
[2021-12-22] MEDS: Acetaminophen IV 1,000 MG/100 ML BAG IVPB SCH ×5 (00:11→23:35)
[2021-12-22] MEDS: *HR* Labetalol 20 MG/4 ML SYRINGE IVP PRN ×3 (00:22→17:45)
[2021-12-22] MEDS: Piperacillin/Tazobactam 3.375 GM in 0.9 % Sodium Chloride Mini Bag 100 ML IVPB SCH ×3 (02:56→17:14)
[2021-12-22 04:35] LABS: Alanine Aminotransferase 71 Units/L (7-52); Albumin 2.8 g/dL (3.5-5.7); Albumin/Globulin Ratio 1.1 (1.1-2.2); Alkaline Phosphatase 139 Units/L (34-104); Aspartate Amino Transferase 47 Units/L (13-39); BUN/Creatinine Ratio 67 (6-26); Bilirubin,Total 1.1 mg/dL (0.3-1.0); Blood Urea Nitrogen 45 mg/dL (8-23); Calcium 8.4 mg/dL (8.6-10.3); Carbon Dioxide 25 mEq/L (23-29); Chloride 98 mEq/L (98-107); Globulin 2.5 g/dL (2.4-3.5); Glucose 209 mg/dL (70-105); Magnesium 2.4 mg/dL (1.6-2.6); Osmolality,Calculated 292 (280-300); Phosphorous 4.1 mg/dL (2.7-4.5); Potassium 4.5 mEq/L (3.5-5.1); Sodium 132 mEq/L (136-145); Total Protein 5.3 g/dL (6.4-8.9); Triglycerides 135 mg/dL (< 150); eGFR For African Americans > 60 (> 60); eGFR For Non-African Americans > 60 (> 60)
[2021-12-22] MEDS: Pantoprazole 40 MG VIAL IVP SCH ×2 (06:19→17:12)
[2021-12-22] MEDS: *HR* Heparin 5,000 UNIT/ML VIAL SQ SCH ×3 (06:20→20:04)
[2021-12-22] MEDS: NIFEdipine XL (24 HR) 60 MG TAB.ER.24 PO SCH (08:45)
[2021-12-22] MEDS: lisinopriL 5 MG TABLET PO SCH (08:45)
[2021-12-22] MEDS: carvediloL 6.25 MG TABLET PO SCH ×2 (08:45→19:37)
[2021-12-22] MEDS: Insulin DETEMIR 100 UNIT/ML X5UNITS SUBQ SCH ×2 (08:50→21:02)
[2021-12-22] MEDS: Vancomycin 1,750 MG/517.5 ML IV.SOLN IVPB SCH ×2 (08:50→20:03)
[2021-12-22] MEDS: Nicotine 21 MG PATCH.TD24 TD SCH (08:50)
[2021-12-22] MEDS ORDERED: [UNRECOGNIZED DRUG - NUTRITION] IVC SCH (17:00)
[2021-12-22] MEDS ORDERED: Methylnaltrexone 12 MG/0.6 ML SYRINGE SQ ONE (18:00)
[2021-12-23] MEDS: Piperacillin/Tazobactam 3.375 GM in 0.9 % Sodium Chloride Mini Bag 100 ML IVPB SCH ×3 (02:15→17:24)
[2021-12-23 02:31] LABS: Basophils % 0.6 %; Eosinophils # 0.1 K/mcL (0.0-0.6); Eosinophils % 1.1 %; Hematocrit 36.9 % (37.5-50.1); Hemoglobin 11.9 g/dL (12.9-16.9); Lymphocytes # 0.8 K/mcL (0.6-4.6); Lymphocytes % 12.9 %; Mean Corpuscular HGB Conc 32.2 g/dL (31.6-35.5); Mean Corpuscular Volume 96.1 fL (83.0-100.0); Mean Platelet Volume 11.8 fL (9.4-12.4); Monocytes # 0.7 K/mcL (0.0-1.3); Monocytes % 11.3 %; Neutrophils # 4.5 K/mcL (1.6-8.9); Platelet Count 158 K/mcL (140-400); Red Blood Count 3.84 M/mcL (4.19-5.50); Red Cell Distribution Width 15.1 % (11.5-14.5); Segmented Neutrophils % 73.1 %; White Blood Count 6.2 K/mcL (4.3-11.1)
[2021-12-23 02:50] LABS: BUN/Creatinine Ratio 60 (6-26); Blood Urea Nitrogen 35 mg/dL (8-23); Carbon Dioxide 30 mEq/L (23-29); Chloride 99 mEq/L (98-107); Glucose 189 mg/dL (70-105); Magnesium 2.1 mg/dL (1.6-2.6); Osmolality,Calculated 291 (280-300); Phosphorous 3.6 mg/dL (2.7-4.5); Potassium 4.3 mEq/L (3.5-5.1); Sodium 134 mEq/L (136-145); eGFR For African Americans > 60 (> 60); eGFR For Non-African Americans > 60 (> 60)
[2021-12-23] MEDS: Insulin LISPRO 300 UNITS/3 ML VIAL SUBQ SCH ×6 (04:12→23:59)
[2021-12-23] MEDS: Acetaminophen IV 1,000 MG/100 ML BAG IVPB SCH ×4 (06:12→23:59)
[2021-12-23] MEDS: *HR* Heparin 5,000 UNIT/ML VIAL SQ SCH ×3 (06:12→21:28)
[2021-12-23] MEDS: Pantoprazole 40 MG VIAL IVP SCH ×2 (06:12→17:13)
[2021-12-23] MEDS ORDERED: Furosemide 40 MG/4 ML VIAL IVP ONE (08:43)
[2021-12-23] MEDS: NIFEdipine XL (24 HR) 60 MG TAB.ER.24 PO SCH (09:22)
[2021-12-23] MEDS: carvediloL 6.25 MG TABLET PO SCH ×2 (09:23→19:40)
[2021-12-23] MEDS: lisinopriL 5 MG TABLET PO SCH (09:23)
[2021-12-23] MEDS: Nicotine 21 MG PATCH.TD24 TD SCH (09:24)
[2021-12-23] MEDS: Vancomycin 1,750 MG/517.5 ML IV.SOLN IVPB SCH ×2 (09:31→19:41)
[2021-12-23] MEDS: Insulin DETEMIR 100 UNIT/ML X5UNITS SUBQ SCH ×2 (09:31→21:29)
[2021-12-23] MEDS ORDERED: Neostigmine Methylsulfate 3 MG/3 ML SYRINGE IV ONE ×2 (10:49→17:37)
[2021-12-23] MEDS ORDERED: Clinimix E 5%-20% SOLUTION 2,000 ML, Amino Acids 10% 200 ML with MVI, adult with vita... IVC SCH (17:00)
[2021-12-23] MEDS ORDERED: 0.9 % Sodium Chloride 1,000 ML ONE (17:37)
[2021-12-23] MEDS ORDERED: *HR* Atropine Sulfate 1 MG/10 ML SYRINGE ONE (17:57)
[2021-12-23] MEDS ORDERED: Methylnaltrexone 12 MG/0.6 ML SYRINGE SQ ONE (18:00)
[2021-12-24] MEDS: Piperacillin/Tazobactam 3.375 GM in 0.9 % Sodium Chloride Mini Bag 100 ML IVPB SCH ×3 (01:58→17:10)
[2021-12-24 03:14] LABS: Basophils % 0.4 %; Eosinophils # 0.1 K/mcL (0.0-0.6); Eosinophils % 1.2 %; Hemoglobin 10.6 g/dL (12.9-16.9); Immature Granulocytes % 1.6 % (0-4); Lymphocytes # 0.6 K/mcL (0.6-4.6); Lymphocytes % 11.7 %; Mean Corpuscular HGB Conc 32.1 g/dL (31.6-35.5); Mean Corpuscular Hemoglobin 30.6 pg (28.0-33.3); Mean Corpuscular Volume 95.4 fL (83.0-100.0); Mean Platelet Volume 11.6 fL (9.4-12.4); Monocytes # 0.5 K/mcL (0.0-1.3); Neutrophils # 3.9 K/mcL (1.6-8.9); Platelet Count 159 K/mcL (140-400); Red Blood Count 3.46 M/mcL (4.19-5.50); Red Cell Distribution Width 15.1 % (11.5-14.5); Segmented Neutrophils % 76.1 %; White Blood Count 5.1 K/mcL (4.3-11.1)
[2021-12-24] MEDS: Insulin LISPRO 300 UNITS/3 ML VIAL SUBQ SCH ×5 (04:31→20:13)
[2021-12-24 04:47] LABS: BUN/Creatinine Ratio 55 (6-26); Blood Urea Nitrogen 35 mg/dL (8-23); Carbon Dioxide 29 mEq/L (23-29); Chloride 99 mEq/L (98-107); Glucose 258 mg/dL (70-105); Osmolality,Calculated 293 (280-300); Phosphorous 3.6 mg/dL (2.7-4.5); Sodium 133 mEq/L (136-145); eGFR For African Americans > 60 (> 60); eGFR For Non-African Americans > 60 (> 60)
[2021-12-24] MEDS: *HR* Heparin 5,000 UNIT/ML VIAL SQ SCH ×3 (06:00→20:11)
[2021-12-24] MEDS: Pantoprazole 40 MG VIAL IVP SCH ×2 (06:00→17:09)
[2021-12-24] MEDS: Acetaminophen IV 1,000 MG/100 ML BAG IVPB SCH ×3 (06:01→17:48)
[2021-12-24] MEDS: Vancomycin 1,750 MG/517.5 ML IV.SOLN IVPB SCH ×2 (08:00→21:22)
[2021-12-24] MEDS: Insulin DETEMIR 100 UNIT/ML X5UNITS SUBQ SCH ×2 (08:04→20:12)
[2021-12-24] MEDS: Ipratropium/Albuterol Neb 3 ML IH PRN ×2 (08:37→15:51)
[2021-12-24] MEDS ORDERED: *HR* LORazepam 2 MG/ML VIAL IVP ONE (08:46)
[2021-12-24] MEDS: carvediloL 6.25 MG TABLET PO SCH ×2 (09:06→20:11)
[2021-12-24] MEDS: lisinopriL 5 MG TABLET PO SCH (09:06)
[2021-12-24] MEDS: NIFEdipine XL (24 HR) 60 MG TAB.ER.24 PO SCH (09:06)
[2021-12-24] MEDS: Nicotine 21 MG PATCH.TD24 TD SCH (09:22)
[2021-12-24] MEDS ORDERED: Furosemide 40 MG/4 ML VIAL IVP ONE (10:39)
[2021-12-24] MEDS: *HR* Labetalol 20 MG/4 ML SYRINGE IVP PRN ×3 (11:27→23:59)
[2021-12-24 15:53] LABS: ABG Base Excess 3 mEq/L (-2 to 3); ABG HCO3 30 mEq/L (21-27); ABG Oxygen Saturation 92 % (95-98); ABG PCO2 55 mmHg (35-45); ABG PH 7.35 pH Units (7.32-7.45); ABG PO2 69 mmHg (85-104); ABG TCO2 32 mEq/L (20-26)
[2021-12-24] MEDS ORDERED: *HR* Atropine Sulfate 1 MG/10 ML SYRINGE ONE (16:13)
[2021-12-24] MEDS: Neostigmine Methylsulfate 3 MG in 0.9 % Sodium Chloride 250 ML IVC SCH (16:42)
[2021-12-24] MEDS ORDERED: [UNRECOGNIZED DRUG - NUTRITION] IVC SCH (17:00)
[2021-12-25] MEDS: Acetaminophen IV 1,000 MG/100 ML BAG IVPB SCH ×4 (00:03→21:28)
[2021-12-25] MEDS: Neostigmine Methylsulfate 3 MG in 0.9 % Sodium Chloride 250 ML IVC SCH ×2 (00:55→09:07)
[2021-12-25] MEDS: Piperacillin/Tazobactam 3.375 GM in 0.9 % Sodium Chloride Mini Bag 100 ML IVPB SCH ×3 (02:50→21:34)
[2021-12-25] MEDS: Insulin LISPRO 300 UNITS/3 ML VIAL SUBQ SCH ×5 (02:50→21:27)
[2021-12-25] MEDS ORDERED: Furosemide 40 MG/4 ML VIAL IVP ONE (03:58)
[2021-12-25] MEDS: *HR* Heparin 5,000 UNIT/ML VIAL SQ SCH ×3 (05:14→21:28)
[2021-12-25] MEDS: Pantoprazole 40 MG VIAL IVP SCH ×2 (05:14→22:22)
[2021-12-25 05:54] LABS: Basophils % 0.5 %; Eosinophils % 0.6 %; Hematocrit 37.1 % (37.5-50.1); Hemoglobin 11.9 g/dL (12.9-16.9); Immature Granulocytes % 1.5 % (0-4); Lymphocytes # 0.6 K/mcL (0.6-4.6); Lymphocytes % 10.1 %; Mean Corpuscular HGB Conc 32.1 g/dL (31.6-35.5); Mean Corpuscular Hemoglobin 30.7 pg (28.0-33.3); Mean Corpuscular Volume 95.9 fL (83.0-100.0); Mean Platelet Volume 11.9 fL (9.4-12.4); Monocytes # 0.6 K/mcL (0.0-1.3); Monocytes % 9.6 %; Neutrophils # 4.8 K/mcL (1.6-8.9); Platelet Count 184 K/mcL (140-400); Red Blood Count 3.87 M/mcL (4.19-5.50); Red Cell Distribution Width 15.4 % (11.5-14.5); Segmented Neutrophils % 77.7 %; White Blood Count 6.2 K/mcL (4.3-11.1)
[2021-12-25 06:06] LABS: BUN/Creatinine Ratio 48 (6-26); Blood Urea Nitrogen 31 mg/dL (8-23); Carbon Dioxide 29 mEq/L (23-29); Chloride 98 mEq/L (98-107); Glucose 256 mg/dL (70-105); Magnesium 1.8 mg/dL (1.6-2.6); Osmolality,Calculated 289 (280-300); Potassium 4.5 mEq/L (3.5-5.1); Sodium 132 mEq/L (136-145); eGFR For African Americans > 60 (> 60); eGFR For Non-African Americans > 60 (> 60)
[2021-12-25] MEDS: *HR* Labetalol 20 MG/4 ML SYRINGE IVP PRN (07:47)
[2021-12-25] MEDS: Vancomycin 1,750 MG/517.5 ML IV.SOLN IVPB SCH (08:05)
[2021-12-25] MEDS: Insulin DETEMIR 100 UNIT/ML X5UNITS SUBQ SCH ×2 (08:06→21:40)
[2021-12-25] MEDS ORDERED: Furosemide 20 MG/2 ML VIAL IVP SCH (09:30)
[2021-12-25] MEDS: Furosemide 20 MG/2 ML VIAL IVP ONE ×2 (10:10→10:59)
[2021-12-25] MEDS: Nicotine 21 MG PATCH.TD24 TD SCH (10:57)
[2021-12-25] MEDS: carvediloL 6.25 MG TABLET PO SCH ×2 (11:52→21:39)
[2021-12-25] MEDS: NIFEdipine XL (24 HR) 60 MG TAB.ER.24 PO SCH (11:53)
[2021-12-25] MEDS: lisinopriL 5 MG TABLET PO SCH (11:53)
[2021-12-25] MEDS ORDERED: Albuterol 2.5 MG/3 ML NEBULIZER ONE (14:01)
[2021-12-25] MEDS ORDERED: Albuterol 2.5 MG/3 ML NEBULIZER IH ONE (14:03)
[2021-12-25] MEDS ORDERED: Albuterol 2.5 MG/3 ML NEBULIZER IH PRN (14:06)
[2021-12-25] MEDS ORDERED: Nitroglycerin 0.4 MG TAB.SUBL SL PRN (14:06)
[2021-12-25] MEDS ORDERED: Naloxone 0.4 MG/ML INJ IVP PRN (14:06)
[2021-12-25] MEDS ORDERED: Ondansetron 4 MG/2 ML VIAL ONE (14:18)
[2021-12-25] MEDS ORDERED: *HR* Succinylcholine 200 MG/10 ML VIAL IVP ONE (14:18)
[2021-12-25] MEDS ORDERED: Lidocaine -MPF 2% 5 ML VIAL ONE (14:18)
[2021-12-25] MEDS ORDERED: Lidocaine HCL 4 ML Topical Solution (Laryng-O-Jet Kit Sterile Pak) TP ONE (14:19)
[2021-12-25] MEDS ORDERED: *HR* FentaNYL (PF) 100 MCG/2 ML VIAL ONE ×2 (14:21→16:59)
[2021-12-25] MEDS ORDERED: *HR* Propofol 200 MG/20 ML VIAL IVP ONE (14:26)
[2021-12-25] MEDS ORDERED: SODIUM CHLORIDE/NAHCO3/KCL/PEG 4,000 ML SOLN.RECON PO STA (14:53)
[2021-12-25] MEDS ORDERED: Simethicone 40 MG/0.6 ML MLS IR ONE (15:03)
[2021-12-25] MEDS ORDERED: *HR* Vasopressin 20 UNIT/ML VIAL ONE (15:06)
[2021-12-25] MEDS ORDERED: Clinimix E 5%-20% SOLUTION 2,000 ML, Amino Acids 10% 200 ML with MVI, adult with vita... IVC SCH (17:00)
[2021-12-25] MEDS ORDERED: Naloxone 0.4 MG/ML INJ IVP ONE (18:33)
[2021-12-25] MEDS ORDERED: Naloxone 0.4 MG/ML INJ IVP STA (19:15)
[2021-12-25] MEDS ORDERED: Ringers Solution, Lactated 1,000 ML ONE (19:29)
[2021-12-25 21:57] LABS: ABG Base Excess 3 mEq/L (-2 to 3); ABG HCO3 28 mEq/L (21-27); ABG Oxygen Saturation 97 % (95-98); ABG PCO2 45 mmHg (35-45); ABG PH 7.41 pH Units (7.32-7.45); ABG PO2 89 mmHg (85-104); ABG TCO2 30 mEq/L (20-26); Blood Gas Modality AVAPS; Blood Gas VT 500 cc
[2021-12-25] MEDS: Furosemide 40 MG/4 ML VIAL IVP SCH ×3 (22:06→22:47)
[2021-12-25] MEDS: Clinimix E 5%-20% SOLUTION 2,000 ML, Amino Acids 10% 200 ML with MVI, adult with vita... IVC SCH (23:36)
[2021-12-26] MEDS: Acetaminophen IV 1,000 MG/100 ML BAG IVPB SCH ×5 (01:08→23:52)
[2021-12-26] MEDS: Insulin LISPRO 300 UNITS/3 ML VIAL SUBQ SCH ×6 (01:34→19:53)
[2021-12-26] MEDS: Piperacillin/Tazobactam 3.375 GM in 0.9 % Sodium Chloride Mini Bag 100 ML IVPB SCH ×3 (01:43→17:49)
[2021-12-26 04:21] LABS: Basophils % 0.2 %; Eosinophils % 0.2 %; Hematocrit 31.9 % (37.5-50.1); Immature Granulocytes % 0.8 % (0-4); Lymphocytes # 0.6 K/mcL (0.6-4.6); Lymphocytes % 9.3 %; Mean Corpuscular HGB Conc 31.7 g/dL (31.6-35.5); Mean Corpuscular Hemoglobin 30.2 pg (28.0-33.3); Mean Corpuscular Volume 95.5 fL (83.0-100.0); Mean Platelet Volume 11.4 fL (9.4-12.4); Monocytes # 0.5 K/mcL (0.0-1.3); Monocytes % 8.3 %; Neutrophils # 5.3 K/mcL (1.6-8.9); Platelet Count 171 K/mcL (140-400); Red Blood Count 3.34 M/mcL (4.19-5.50); Segmented Neutrophils % 81.2 %; White Blood Count 6.5 K/mcL (4.3-11.1)
[2021-12-26 04:25] LABS: Hemoglobin 10.1 g/dL (12.9-16.9)
[2021-12-26 04:35] LABS: BUN/Creatinine Ratio 46 (6-26); Blood Urea Nitrogen 34 mg/dL (8-23); Calcium 7.8 mg/dL (8.6-10.3); Carbon Dioxide 30 mEq/L (23-29); Chloride 99 mEq/L (98-107); Glucose 243 mg/dL (70-105); Osmolality,Calculated 292 (280-300); Potassium 4.6 mEq/L (3.5-5.1); Sodium 133 mEq/L (136-145); eGFR For African Americans > 60 (> 60); eGFR For Non-African Americans > 60 (> 60)
[2021-12-26 04:35] LABS: Alanine Aminotransferase 52 Units/L (7-52); Albumin 2.4 g/dL (3.5-5.7); Albumin/Globulin Ratio 1.3 (1.1-2.2); Alkaline Phosphatase 83 Units/L (34-104); Aspartate Amino Transferase 44 Units/L (13-39); BUN/Creatinine Ratio 50 (6-26); Bilirubin,Total 0.9 mg/dL (0.3-1.0); Blood Urea Nitrogen 33 mg/dL (8-23); Calcium 7.8 mg/dL (8.6-10.3); Carbon Dioxide 28 mEq/L (23-29); Chloride 99 mEq/L (98-107); Globulin 1.9 g/dL (2.4-3.5); Glucose 231 mg/dL (70-105); Magnesium 1.8 mg/dL (1.6-2.6); Osmolality,Calculated 289 (280-300); Phosphorous 4.2 mg/dL (2.7-4.5); Potassium 4.5 mEq/L (3.5-5.1); Sodium 132 mEq/L (136-145); Total Protein 4.3 g/dL (6.4-8.9); eGFR For African Americans > 60 (> 60); eGFR For Non-African Americans > 60 (> 60)
[2021-12-26] MEDS: Pantoprazole 40 MG VIAL IVP SCH ×2 (04:51→17:48)
[2021-12-26] MEDS: *HR* Heparin 5,000 UNIT/ML VIAL SQ SCH ×3 (04:51→20:43)
[2021-12-26] MEDS: Nicotine 21 MG PATCH.TD24 TD SCH (08:53)
[2021-12-26] MEDS: Insulin DETEMIR 100 UNIT/ML X5UNITS SUBQ SCH ×2 (08:53→20:43)
[2021-12-26] MEDS: Furosemide 40 MG/4 ML VIAL IVP SCH ×2 (08:54→20:43)
[2021-12-26] MEDS: carvediloL 6.25 MG TABLET PO SCH ×2 (09:02→20:43)
[2021-12-26] MEDS: NIFEdipine XL (24 HR) 60 MG TAB.ER.24 PO SCH (09:03)
[2021-12-26] MEDS: lisinopriL 5 MG TABLET PO SCH (09:03)
[2021-12-26] MEDS ORDERED: AMINO ACIDS 10% IVC SCH (17:00)
[2021-12-26] MEDS ORDERED: CLINIMIX E IVC SCH (17:00)
[2021-12-26] MEDS: Clinimix E 5%-20% SOLUTION 2,000 ML, Amino Acids 10% 200 ML with MVI, adult with vita... IVC SCH (23:58)
[2021-12-27] MEDS: Insulin LISPRO 300 UNITS/3 ML VIAL SUBQ SCH ×6 (00:05→21:06)
[2021-12-27] MEDS: Piperacillin/Tazobactam 3.375 GM in 0.9 % Sodium Chloride Mini Bag 100 ML IVPB SCH ×3 (02:21→17:34)
[2021-12-27 05:29] LABS: Basophils % 0.8 %; Eosinophils # 0.1 K/mcL (0.0-0.6); Hematocrit 31.8 % (37.5-50.1); Hemoglobin 10.3 g/dL (12.9-16.9); Lymphocytes # 0.7 K/mcL (0.6-4.6); Lymphocytes % 14.2 %; Mean Corpuscular HGB Conc 32.4 g/dL (31.6-35.5); Mean Corpuscular Hemoglobin 30.9 pg (28.0-33.3); Mean Corpuscular Volume 95.5 fL (83.0-100.0); Mean Platelet Volume 11.1 fL (9.4-12.4); Monocytes # 0.4 K/mcL (0.0-1.3); Monocytes % 9.2 %; Neutrophils # 3.5 K/mcL (1.6-8.9); Platelet Count 153 K/mcL (140-400); Red Blood Count 3.33 M/mcL (4.19-5.50); Red Cell Distribution Width 15.9 % (11.5-14.5); Segmented Neutrophils % 73.8 %; White Blood Count 4.8 K/mcL (4.3-11.1)
[2021-12-27 05:45] LABS: Alanine Aminotransferase 80 Units/L (7-52); Albumin 2.4 g/dL (3.5-5.7); Albumin/Globulin Ratio 1.2 (1.1-2.2); Alkaline Phosphatase 73 Units/L (34-104); Aspartate Amino Transferase 66 Units/L (13-39); BUN/Creatinine Ratio 50 (6-26); Bilirubin,Total 0.8 mg/dL (0.3-1.0); Blood Urea Nitrogen 31 mg/dL (8-23); Calcium 7.7 mg/dL (8.6-10.3); Carbon Dioxide 32 mEq/L (23-29); Chloride 99 mEq/L (98-107); Glucose 88 mg/dL (70-105); Magnesium 1.8 mg/dL (1.6-2.6); Osmolality,Calculated 286 (280-300); Phosphorous 2.9 mg/dL (2.7-4.5); Potassium 3.6 mEq/L (3.5-5.1); Sodium 135 mEq/L (136-145); Total Protein 4.4 g/dL (6.4-8.9); eGFR For African Americans > 60 (> 60); eGFR For Non-African Americans > 60 (> 60)
[2021-12-27] MEDS: Acetaminophen IV 1,000 MG/100 ML BAG IVPB SCH ×4 (06:12→23:25)
[2021-12-27] MEDS: *HR* Heparin 5,000 UNIT/ML VIAL SQ SCH ×3 (06:12→21:03)
[2021-12-27] MEDS: Pantoprazole 40 MG VIAL IVP SCH ×2 (06:12→17:33)
[2021-12-27] MEDS: *HR* Labetalol 20 MG/4 ML SYRINGE IVP PRN (06:28)
[2021-12-27] MEDS: Nicotine 21 MG PATCH.TD24 TD SCH (08:27)
[2021-12-27] MEDS: Furosemide 40 MG/4 ML VIAL IVP SCH ×2 (08:28→21:05)
[2021-12-27] MEDS: Insulin DETEMIR 100 UNIT/ML X5UNITS SUBQ SCH ×2 (09:21→21:05)
[2021-12-27] MEDS: NIFEdipine XL (24 HR) 60 MG TAB.ER.24 PO SCH (09:22)
[2021-12-27] MEDS: carvediloL 6.25 MG TABLET PO SCH ×2 (09:22→21:05)
[2021-12-27] MEDS: lisinopriL 5 MG TABLET PO SCH (09:22)
[2021-12-27] MEDS ORDERED: CLINIMIX E IVC SCH (17:00)
[2021-12-27] MEDS ORDERED: AMINO ACIDS 10% IVC SCH (17:00)
[2021-12-27] MEDS: Clinimix E 5%-20% SOLUTION 2,000 ML, Amino Acids 10% 200 ML with MVI, adult with vita... IVC SCH (23:05)
[2021-12-28] MEDS: Insulin LISPRO 300 UNITS/3 ML VIAL SUBQ SCH ×6 (00:22→19:52)
[2021-12-28] MEDS: Piperacillin/Tazobactam 3.375 GM in 0.9 % Sodium Chloride Mini Bag 100 ML IVPB SCH ×3 (02:29→16:35)
[2021-12-28 04:21] LABS: Basophils % 0.8 %; Eosinophils # 0.1 K/mcL (0.0-0.6); Eosinophils % 1.5 %; Hematocrit 30.6 % (37.5-50.1); Immature Granulocytes % 1.8 % (0-4); Lymphocytes # 0.8 K/mcL (0.6-4.6); Lymphocytes % 19.7 %; Mean Corpuscular HGB Conc 32.7 g/dL (31.6-35.5); Mean Corpuscular Hemoglobin 31.1 pg (28.0-33.3); Mean Platelet Volume 11.5 fL (9.4-12.4); Monocytes # 0.3 K/mcL (0.0-1.3); Monocytes % 8.1 %; Neutrophils # 2.7 K/mcL (1.6-8.9); Platelet Count 148 K/mcL (140-400); Red Blood Count 3.22 M/mcL (4.19-5.50); Red Cell Distribution Width 15.9 % (11.5-14.5); Segmented Neutrophils % 68.1 %
[2021-12-28 04:35] LABS: Alanine Aminotransferase 83 Units/L (7-52); Albumin 2.5 g/dL (3.5-5.7); Alkaline Phosphatase 78 Units/L (34-104); Aspartate Amino Transferase 51 Units/L (13-39); BUN/Creatinine Ratio 40 (6-26); Bilirubin,Total 0.7 mg/dL (0.3-1.0); Blood Urea Nitrogen 22 mg/dL (8-23); Calcium 7.7 mg/dL (8.6-10.3); Carbon Dioxide 31 mEq/L (23-29); Chloride 99 mEq/L (98-107); Glucose 123 mg/dL (70-105); Magnesium 1.7 mg/dL (1.6-2.6); Osmolality,Calculated 283 (280-300); Phosphorous 2.9 mg/dL (2.7-4.5); Potassium 3.4 mEq/L (3.5-5.1); Sodium 134 mEq/L (136-145); eGFR For African Americans > 60 (> 60); eGFR For Non-African Americans > 60 (> 60)
[2021-12-28 04:38] LABS: Albumin/Globulin Ratio 1.3 (1.1-2.2); Globulin 1.9 g/dL (2.4-3.5); Total Protein 4.4 g/dL (6.4-8.9)
[2021-12-28] MEDS: Acetaminophen IV 1,000 MG/100 ML BAG IVPB SCH ×4 (05:19→23:17)
[2021-12-28] MEDS: *HR* Heparin 5,000 UNIT/ML VIAL SQ SCH ×3 (05:20→19:50)
[2021-12-28] MEDS: Pantoprazole 40 MG VIAL IVP SCH ×2 (05:20→16:37)
[2021-12-28] MEDS: carvediloL 6.25 MG TABLET PO SCH ×2 (08:26→19:49)
[2021-12-28] MEDS: lisinopriL 5 MG TABLET PO SCH (08:26)
[2021-12-28] MEDS: Furosemide 40 MG/4 ML VIAL IVP SCH ×2 (08:27→19:50)
[2021-12-28] MEDS: NIFEdipine XL (24 HR) 60 MG TAB.ER.24 PO SCH (08:27)
[2021-12-28] MEDS: Insulin DETEMIR 100 UNIT/ML X5UNITS SUBQ SCH ×2 (08:32→19:52)
[2021-12-28] MEDS: Nicotine 21 MG PATCH.TD24 TD SCH (10:49)
[2021-12-28] MEDS ORDERED: Potassium Chloride Elixir 20 MEQ/15 ML UDC PO ONE (11:10)
[2021-12-28] MEDS ORDERED: D10% in Water 500 ML IVC PRN (12:21)
[2021-12-28] MEDS ORDERED: Clinimix E 5%-20% SOLUTION 2,000 ML, Amino Acids 10% 200 ML with MVI, adult with vita... IVC SCH (17:00)
[2021-12-28] MEDS: Clinimix E 5%-20% SOLUTION 2,000 ML, Amino Acids 10% 200 ML with MVI, adult with vita... IVC SCH (23:17)
[2021-12-29] MEDS: Insulin LISPRO 300 UNITS/3 ML VIAL SUBQ SCH ×7 (00:09→23:20)
[2021-12-29] MEDS: Piperacillin/Tazobactam 3.375 GM in 0.9 % Sodium Chloride Mini Bag 100 ML IVPB SCH ×3 (01:23→16:59)
[2021-12-29 05:04] LABS: Basophils % 0.7 %; Eosinophils % 0.7 %; Hematocrit 30.8 % (37.5-50.1); Hemoglobin 10.4 g/dL (12.9-16.9); Immature Granulocytes % 1.7 % (0-4); Lymphocytes # 0.8 K/mcL (0.6-4.6); Lymphocytes % 17.7 %; Mean Corpuscular HGB Conc 33.8 g/dL (31.6-35.5); Mean Corpuscular Hemoglobin 31.6 pg (28.0-33.3); Mean Corpuscular Volume 93.6 fL (83.0-100.0); Mean Platelet Volume 11.1 fL (9.4-12.4); Monocytes # 0.3 K/mcL (0.0-1.3); Monocytes % 6.6 %; Neutrophils # 3.1 K/mcL (1.6-8.9); Platelet Count 129 K/mcL (140-400); Red Blood Count 3.29 M/mcL (4.19-5.50); Segmented Neutrophils % 72.6 %; White Blood Count 4.2 K/mcL (4.3-11.1)
[2021-12-29] MEDS: *HR* Heparin 5,000 UNIT/ML VIAL SQ SCH ×3 (05:10→21:31)
[2021-12-29] MEDS: Pantoprazole 40 MG VIAL IVP SCH ×2 (05:11→17:01)
[2021-12-29] MEDS: Acetaminophen IV 1,000 MG/100 ML BAG IVPB SCH ×4 (05:12→23:21)
[2021-12-29 05:29] LABS: Alanine Aminotransferase 75 Units/L (7-52); Albumin 2.5 g/dL (3.5-5.7); Albumin/Globulin Ratio 1.2 (1.1-2.2); Alkaline Phosphatase 80 Units/L (34-104); Aspartate Amino Transferase 34 Units/L (13-39); BUN/Creatinine Ratio 37 (6-26); Bilirubin,Total 0.7 mg/dL (0.3-1.0); Blood Urea Nitrogen 19 mg/dL (8-23); Calcium 7.7 mg/dL (8.6-10.3); Carbon Dioxide 29 mEq/L (23-29); Chloride 96 mEq/L (98-107); Globulin 2.1 g/dL (2.4-3.5); Glucose 274 mg/dL (70-105); Magnesium 1.7 mg/dL (1.6-2.6); Osmolality,Calculated 282 (280-300); Potassium 3.5 mEq/L (3.5-5.1); Sodium 130 mEq/L (136-145); Total Protein 4.6 g/dL (6.4-8.9); Triglycerides 156 mg/dL (< 150); eGFR For African Americans > 60 (> 60); eGFR For Non-African Americans > 60 (> 60)
[2021-12-29] MEDS: Furosemide 40 MG/4 ML VIAL IVP SCH ×2 (09:26→21:32)
[2021-12-29] MEDS: NIFEdipine XL (24 HR) 60 MG TAB.ER.24 PO SCH (09:26)
[2021-12-29] MEDS: Nicotine 21 MG PATCH.TD24 TD SCH (09:26)
[2021-12-29] MEDS: Insulin DETEMIR 100 UNIT/ML X5UNITS SUBQ SCH ×2 (09:28→21:32)
[2021-12-29] MEDS: carvediloL 6.25 MG TABLET PO SCH ×2 (09:28→21:32)
[2021-12-29] MEDS: lisinopriL 5 MG TABLET PO SCH (09:28)
[2021-12-29] MEDS ORDERED: D10% in Water 500 ML IVC PRN (11:19)
[2021-12-29 12:57] LABS: VBG Ionized Calcium 1.14 mmol/L (1.15-1.35)
[2021-12-29] MEDS ORDERED: [UNRECOGNIZED DRUG - NUTRITION] IVC SCH (17:00)
[2021-12-30 01:32] LABS: BUN/Creatinine Ratio 37 (6-26); Blood Urea Nitrogen 22 mg/dL (8-23); Calcium 7.9 mg/dL (8.6-10.3); Carbon Dioxide 29 mEq/L (23-29); Chloride 97 mEq/L (98-107); Glucose 192 mg/dL (70-105); Magnesium 1.7 mg/dL (1.6-2.6); Osmolality,Calculated 283 (280-300); Phosphorous 3.9 mg/dL (2.7-4.5); Potassium 3.5 mEq/L (3.5-5.1); Sodium 132 mEq/L (136-145); eGFR For African Americans > 60 (> 60); eGFR For Non-African Americans > 60 (> 60)
[2021-12-30 01:34] LABS: Basophils % 0.6 %; Eosinophils # 0.1 K/mcL (0.0-0.6); Eosinophils % 1.5 %; Hemoglobin 10.3 g/dL (12.9-16.9); Immature Granulocytes % 0.9 % (0-4); Lymphocytes # 0.9 K/mcL (0.6-4.6); Lymphocytes % 20.3 %; Mean Corpuscular HGB Conc 32.2 g/dL (31.6-35.5); Mean Corpuscular Hemoglobin 30.2 pg (28.0-33.3); Mean Corpuscular Volume 93.8 fL (83.0-100.0); Mean Platelet Volume 11.4 fL (9.4-12.4); Monocytes # 0.3 K/mcL (0.0-1.3); Monocytes % 6.5 %; Neutrophils # 3.3 K/mcL (1.6-8.9); Nucleated Red Blood Cells 0.4 /100 WBC (0); Platelet Count 155 K/mcL (140-400); Red Blood Count 3.41 M/mcL (4.19-5.50); Red Cell Distribution Width 16.6 % (11.5-14.5); Segmented Neutrophils % 70.2 %; White Blood Count 4.6 K/mcL (4.3-11.1)
[2021-12-30] MEDS: Piperacillin/Tazobactam 3.375 GM in 0.9 % Sodium Chloride Mini Bag 100 ML IVPB SCH (04:16)
[2021-12-30 04:17] LABS: ABG Base Excess 4 mEq/L (-2 to 3); ABG HCO3 29 mEq/L (21-27); ABG Oxygen Saturation 95 % (95-98); ABG PCO2 46 mmHg (35-45); ABG PH 7.41 pH Units (7.32-7.45); ABG PO2 77 mmHg (85-104); ABG TCO2 31 mEq/L (20-26)
[2021-12-30] MEDS: Insulin LISPRO 300 UNITS/3 ML VIAL SUBQ SCH ×5 (04:21→20:20)
[2021-12-30] MEDS: Pantoprazole 40 MG VIAL IVP SCH ×2 (06:02→18:24)
[2021-12-30] MEDS: *HR* Heparin 5,000 UNIT/ML VIAL SQ SCH ×3 (06:02→20:19)
[2021-12-30] MEDS: Acetaminophen IV 1,000 MG/100 ML BAG IVPB SCH (06:06)
[2021-12-30] MEDS: Furosemide 40 MG/4 ML VIAL IVP SCH ×2 (08:52→20:05)
[2021-12-30] MEDS: Insulin DETEMIR 100 UNIT/ML X5UNITS SUBQ SCH ×2 (08:52→20:20)
[2021-12-30] MEDS: NIFEdipine XL (24 HR) 60 MG TAB.ER.24 PO SCH (08:55)
[2021-12-30] MEDS: lisinopriL 5 MG TABLET PO SCH (08:55)
[2021-12-30] MEDS: carvediloL 6.25 MG TABLET PO SCH ×2 (08:55→20:02)
[2021-12-30] MEDS: Nicotine 21 MG PATCH.TD24 TD SCH (08:57)
[2021-12-30] MEDS ORDERED: *HR* Alteplase (Cathflo) 2 MG VIAL IVP ONE (09:21)
[2021-12-30] MEDS ORDERED: Clinimix E 5%-20% SOLUTION 2,000 ML, Amino Acids 10% 200 ML with MVI, adult with vita... IVC SCH ×2 (17:00)
[2021-12-30] MEDS: Magnesium Oxide 400 MG TABLET PO SCH (20:02)
[2021-12-31] MEDS: Insulin LISPRO 300 UNITS/3 ML VIAL SUBQ SCH ×7 (00:51→23:55)
[2021-12-31 04:52] LABS: Basophils % 0.7 %; Eosinophils # 0.1 K/mcL (0.0-0.6); Hematocrit 31.8 % (37.5-50.1); Hemoglobin 10.4 g/dL (12.9-16.9); Immature Granulocytes % 1.2 % (0-4); Lymphocytes # 1.2 K/mcL (0.6-4.6); Lymphocytes % 20.5 %; Mean Corpuscular HGB Conc 32.7 g/dL (31.6-35.5); Mean Corpuscular Hemoglobin 31.3 pg (28.0-33.3); Mean Corpuscular Volume 95.8 fL (83.0-100.0); Mean Platelet Volume 11.4 fL (9.4-12.4); Monocytes # 0.4 K/mcL (0.0-1.3); Monocytes % 7.1 %; Neutrophils # 4.1 K/mcL (1.6-8.9); Platelet Count 167 K/mcL (140-400); Red Blood Count 3.32 M/mcL (4.19-5.50); Red Cell Distribution Width 17.4 % (11.5-14.5); Segmented Neutrophils % 69.5 %; White Blood Count 5.9 K/mcL (4.3-11.1)
[2021-12-31] MEDS: Pantoprazole 40 MG VIAL IVP SCH ×2 (05:18→16:35)
[2021-12-31] MEDS: *HR* Heparin 5,000 UNIT/ML VIAL SQ SCH ×3 (05:18→20:36)
[2021-12-31 05:20] LABS: Platelet Estimate Normal (Normal)
[2021-12-31 05:31] LABS: BUN/Creatinine Ratio 48 (6-26); Blood Urea Nitrogen 29 mg/dL (8-23); Calcium 7.8 mg/dL (8.6-10.3); Carbon Dioxide 30 mEq/L (23-29); Chloride 96 mEq/L (98-107); Glucose 186 mg/dL (70-105); Osmolality,Calculated 281 (280-300); Phosphorous 3.5 mg/dL (2.7-4.5); Potassium 4.1 mEq/L (3.5-5.1); Sodium 130 mEq/L (136-145); eGFR For African Americans > 60 (> 60); eGFR For Non-African Americans > 60 (> 60)
[2021-12-31] MEDS: Nicotine 21 MG PATCH.TD24 TD SCH (08:32)
[2021-12-31] MEDS: Furosemide 40 MG/4 ML VIAL IVP SCH ×2 (08:33→20:36)
[2021-12-31] MEDS: NIFEdipine XL (24 HR) 60 MG TAB.ER.24 PO SCH (08:33)
[2021-12-31] MEDS: carvediloL 6.25 MG TABLET PO SCH ×2 (08:33→20:35)
[2021-12-31] MEDS: Magnesium Oxide 400 MG TABLET PO SCH ×2 (08:34→20:35)
[2021-12-31] MEDS: lisinopriL 5 MG TABLET PO SCH (08:34)
[2021-12-31] MEDS: Insulin DETEMIR 100 UNIT/ML X5UNITS SUBQ SCH ×2 (09:26→20:37)
[2021-12-31] MEDS ORDERED: [UNRECOGNIZED DRUG - NUTRITION] IVC SCH (17:00)
[2022-01-01] MEDS: Insulin LISPRO 300 UNITS/3 ML VIAL SUBQ SCH ×5 (03:39→20:09)
[2022-01-01 03:52] LABS: Basophils % 0.6 %; Eosinophils % 0.4 %; Hematocrit 32.1 % (37.5-50.1); Hemoglobin 10.2 g/dL (12.9-16.9); Immature Granulocytes % 0.8 % (0-4); Lymphocytes # 1.2 K/mcL (0.6-4.6); Lymphocytes % 22.7 %; Mean Corpuscular HGB Conc 31.8 g/dL (31.6-35.5); Mean Corpuscular Hemoglobin 30.4 pg (28.0-33.3); Mean Corpuscular Volume 95.5 fL (83.0-100.0); Mean Platelet Volume 11.4 fL (9.4-12.4); Monocytes # 0.4 K/mcL (0.0-1.3); Monocytes % 7.9 %; Neutrophils # 3.4 K/mcL (1.6-8.9); Platelet Count 142 K/mcL (140-400); Red Blood Count 3.36 M/mcL (4.19-5.50); Red Cell Distribution Width 18.1 % (11.5-14.5); Segmented Neutrophils % 67.6 %; White Blood Count 5.1 K/mcL (4.3-11.1)
[2022-01-01 04:08] LABS: BUN/Creatinine Ratio 53 (6-26); Blood Urea Nitrogen 30 mg/dL (8-23); Calcium 8.1 mg/dL (8.6-10.3); Carbon Dioxide 30 mEq/L (23-29); Chloride 96 mEq/L (98-107); Glucose 260 mg/dL (70-105); Osmolality,Calculated 283 (280-300); Phosphorous 3.8 mg/dL (2.7-4.5); Sodium 129 mEq/L (136-145); eGFR For African Americans > 60 (> 60); eGFR For Non-African Americans > 60 (> 60)
[2022-01-01] MEDS: Pantoprazole 40 MG VIAL IVP SCH ×2 (05:16→16:54)
[2022-01-01] MEDS: *HR* Heparin 5,000 UNIT/ML VIAL SQ SCH ×3 (05:16→22:27)
[2022-01-01] MEDS: carvediloL 6.25 MG TABLET PO SCH (07:55)
[2022-01-01] MEDS: lisinopriL 5 MG TABLET PO SCH (07:55)
[2022-01-01] MEDS: Magnesium Oxide 400 MG TABLET PO SCH ×2 (07:55→22:32)
[2022-01-01] MEDS: NIFEdipine XL (24 HR) 60 MG TAB.ER.24 PO SCH (07:55)
[2022-01-01] MEDS: Nicotine 21 MG PATCH.TD24 TD SCH (08:00)
[2022-01-01] MEDS: Furosemide 40 MG/4 ML VIAL IVP SCH ×2 (08:01→22:27)
[2022-01-01] MEDS: Insulin DETEMIR 100 UNIT/ML X5UNITS SUBQ SCH ×2 (09:47→22:29)
[2022-01-01] MEDS ORDERED: AMINO ACIDS 10% IV SCH (17:00)
[2022-01-01] MEDS ORDERED: CLINIMIX E IV SCH (17:00)
[2022-01-01] MEDS ORDERED: [UNRECOGNIZED DRUG - OTHER] IV SCH (17:00)
[2022-01-01] MEDS ORDERED: MVI IV SCH (17:00)
[2022-01-02] MEDS: *HR* Labetalol 20 MG/4 ML SYRINGE IVP PRN (01:10)
[2022-01-02] MEDS: carvediloL 6.25 MG TABLET PO SCH ×3 (01:17→20:58)
[2022-01-02] MEDS: Insulin LISPRO 300 UNITS/3 ML VIAL SUBQ SCH ×7 (01:18→23:48)
[2022-01-02 04:38] LABS: Alanine Aminotransferase 36 Units/L (7-52); Albumin 2.6 g/dL (3.5-5.7); Albumin/Globulin Ratio 1.1 (1.1-2.2); Alkaline Phosphatase 96 Units/L (34-104); Aspartate Amino Transferase 15 Units/L (13-39); BUN/Creatinine Ratio 50 (6-26); Bilirubin,Total 0.8 mg/dL (0.3-1.0); Blood Urea Nitrogen 29 mg/dL (8-23); Calcium 8.2 mg/dL (8.6-10.3); Carbon Dioxide 30 mEq/L (23-29); Chloride 96 mEq/L (98-107); Globulin 2.4 g/dL (2.4-3.5); Glucose 274 mg/dL (70-105); Magnesium 2.2 mg/dL (1.6-2.6); Osmolality,Calculated 286 (280-300); Phosphorous 4.2 mg/dL (2.7-4.5); Sodium 130 mEq/L (136-145); eGFR For African Americans > 60 (> 60); eGFR For Non-African Americans > 60 (> 60)
[2022-01-02] MEDS: Pantoprazole 40 MG VIAL IVP SCH ×2 (05:10→17:35)
[2022-01-02] MEDS: *HR* Heparin 5,000 UNIT/ML VIAL SQ SCH ×3 (05:10→20:59)
[2022-01-02] MEDS: NIFEdipine XL (24 HR) 60 MG TAB.ER.24 PO SCH (08:50)
[2022-01-02] MEDS: Furosemide 40 MG/4 ML VIAL IVP SCH ×2 (08:50→20:58)
[2022-01-02] MEDS: Magnesium Oxide 400 MG TABLET PO SCH ×2 (08:51→23:05)
[2022-01-02] MEDS: Nicotine 21 MG PATCH.TD24 TD SCH (08:51)
[2022-01-02] MEDS: lisinopriL 5 MG TABLET PO SCH (08:51)
[2022-01-02] MEDS: Insulin DETEMIR 100 UNIT/ML X5UNITS SUBQ SCH ×2 (09:48→20:59)
[2022-01-02] MEDS ORDERED: *HR* Atropine Sulfate 1 MG/10 ML SYRINGE ONE (11:07)
[2022-01-02] MEDS ORDERED: [UNRECOGNIZED DRUG - NUTRITION] IV SCH (17:00)
[2022-01-03] MEDS: Insulin LISPRO 300 UNITS/3 ML VIAL SUBQ SCH ×5 (04:00→21:54)
[2022-01-03 05:21] LABS: Alanine Aminotransferase 28 Units/L (7-52); Albumin 2.6 g/dL (3.5-5.7); Albumin/Globulin Ratio 1.1 (1.1-2.2); Alkaline Phosphatase 103 Units/L (34-104); Aspartate Amino Transferase 14 Units/L (13-39); BUN/Creatinine Ratio 50 (6-26); Blood Urea Nitrogen 30 mg/dL (8-23); Calcium 8.2 mg/dL (8.6-10.3); Carbon Dioxide 31 mEq/L (23-29); Chloride 97 mEq/L (98-107); Globulin 2.4 g/dL (2.4-3.5); Glucose 177 mg/dL (70-105); Magnesium 2.1 mg/dL (1.6-2.6); Osmolality,Calculated 283 (280-300); Phosphorous 4.2 mg/dL (2.7-4.5); Sodium 131 mEq/L (136-145); eGFR For African Americans > 60 (> 60); eGFR For Non-African Americans > 60 (> 60)
[2022-01-03] MEDS: *HR* Heparin 5,000 UNIT/ML VIAL SQ SCH ×3 (06:16→21:52)
[2022-01-03] MEDS: Pantoprazole 40 MG VIAL IVP SCH ×2 (06:16→17:03)
[2022-01-03] MEDS: Magnesium Oxide 400 MG TABLET PO SCH ×2 (09:05→21:52)
[2022-01-03] MEDS: NIFEdipine XL (24 HR) 60 MG TAB.ER.24 PO SCH (09:05)
[2022-01-03] MEDS: lisinopriL 5 MG TABLET PO SCH (09:05)
[2022-01-03] MEDS: carvediloL 6.25 MG TABLET PO SCH ×2 (09:05→21:51)
[2022-01-03] MEDS: Furosemide 40 MG/4 ML VIAL IVP SCH ×2 (09:06→21:51)
[2022-01-03] MEDS: Nicotine 21 MG PATCH.TD24 TD SCH (09:06)
[2022-01-03] MEDS: Insulin DETEMIR 100 UNIT/ML X5UNITS SUBQ SCH ×2 (10:25→21:52)
[2022-01-03] MEDS ORDERED: *HR* Atropine Sulfate 1 MG/10 ML SYRINGE ONE (11:31)
[2022-01-03] MEDS ORDERED: [UNRECOGNIZED DRUG - NUTRITION] IV SCH (17:00)
[2022-01-04] MEDS: Insulin LISPRO 300 UNITS/3 ML VIAL SUBQ SCH ×7 (01:14→23:52)
[2022-01-04] MEDS: *HR* Heparin 5,000 UNIT/ML VIAL SQ SCH ×3 (05:02→20:01)
[2022-01-04] MEDS: Pantoprazole 40 MG VIAL IVP SCH ×2 (05:02→16:50)
[2022-01-04 06:14] LABS: Alanine Aminotransferase 25 Units/L (7-52); Albumin 2.7 g/dL (3.5-5.7); Albumin/Globulin Ratio 1.3 (1.1-2.2); Alkaline Phosphatase 103 Units/L (34-104); Aspartate Amino Transferase 12 Units/L (13-39); BUN/Creatinine Ratio 60 (6-26); Blood Urea Nitrogen 39 mg/dL (8-23); Calcium 8.4 mg/dL (8.6-10.3); Carbon Dioxide 31 mEq/L (23-29); Chloride 95 mEq/L (98-107); Globulin 2.1 g/dL (2.4-3.5); Glucose 238 mg/dL (70-105); Magnesium 2.3 mg/dL (1.6-2.6); Osmolality,Calculated 289 (280-300); Phosphorous 5.4 mg/dL (2.7-4.5); Potassium 4.2 mEq/L (3.5-5.1); Sodium 131 mEq/L (136-145); Total Protein 4.8 g/dL (6.4-8.9); eGFR For African Americans > 60 (> 60); eGFR For Non-African Americans > 60 (> 60)
[2022-01-04] MEDS: Magnesium Oxide 400 MG TABLET PO SCH ×2 (08:38→20:01)
[2022-01-04] MEDS: NIFEdipine XL (24 HR) 60 MG TAB.ER.24 PO SCH (08:39)
[2022-01-04] MEDS: lisinopriL 5 MG TABLET PO SCH (08:39)
[2022-01-04] MEDS: carvediloL 6.25 MG TABLET PO SCH ×2 (08:39→20:01)
[2022-01-04] MEDS: Nicotine 21 MG PATCH.TD24 TD SCH (08:39)
[2022-01-04] MEDS: Furosemide 40 MG/4 ML VIAL IVP SCH ×2 (08:40→20:01)
[2022-01-04] MEDS: Insulin DETEMIR 100 UNIT/ML X5UNITS SUBQ SCH ×2 (08:42→20:04)
[2022-01-04] MEDS ORDERED: Clinimix 5%-20% SOLUTION 2,000 ML, Amino Acids 10% 200 ML with MVI, adult with vitami... IV SCH (17:00)
[2022-01-04] MEDS: Melatonin 3 MG TABLET PO PRN (20:01)
[2022-01-05] MEDS: Insulin LISPRO 300 UNITS/3 ML VIAL SUBQ SCH ×5 (03:56→20:29)
[2022-01-05 03:58] LABS: Alanine Aminotransferase 22 Units/L (7-52); Albumin 2.5 g/dL (3.5-5.7); Alkaline Phosphatase 93 Units/L (34-104); Aspartate Amino Transferase 11 Units/L (13-39); BUN/Creatinine Ratio 61 (6-26); Bilirubin,Total 0.8 mg/dL (0.3-1.0); Blood Urea Nitrogen 40 mg/dL (8-23); Calcium 8.2 mg/dL (8.6-10.3); Carbon Dioxide 32 mEq/L (23-29); Chloride 96 mEq/L (98-107); Globulin 2.4 g/dL (2.4-3.5); Glucose 191 mg/dL (70-105); Magnesium 2.2 mg/dL (1.6-2.6); Osmolality,Calculated 287 (280-300); Phosphorous 3.4 mg/dL (2.7-4.5); Potassium 4.1 mEq/L (3.5-5.1); Sodium 131 mEq/L (136-145); Total Protein 4.9 g/dL (6.4-8.9); eGFR For African Americans > 60 (> 60); eGFR For Non-African Americans > 60 (> 60)
[2022-01-05] MEDS: *HR* Heparin 5,000 UNIT/ML VIAL SQ SCH ×3 (05:39→20:29)
[2022-01-05] MEDS: Pantoprazole 40 MG VIAL IVP SCH ×2 (05:39→18:41)
[2022-01-05] MEDS ORDERED: Albumin 25% 25gram/100mL 25 GM/100 ML IV.SOLN IVPB ONE (06:13)
[2022-01-05] MEDS ORDERED: 0.9 % Sodium Chloride 500 ML IVC ONE (06:14)
[2022-01-05] MEDS: Nicotine 21 MG PATCH.TD24 TD SCH (11:22)
[2022-01-05] MEDS: lisinopriL 5 MG TABLET PO SCH (11:22)
[2022-01-05] MEDS: NIFEdipine XL (24 HR) 60 MG TAB.ER.24 PO SCH (11:22)
[2022-01-05] MEDS: Furosemide 40 MG/4 ML VIAL IVP SCH ×2 (11:23→20:25)
[2022-01-05] MEDS: Magnesium Oxide 400 MG TABLET PO SCH ×2 (11:23→20:27)
[2022-01-05] MEDS: carvediloL 6.25 MG TABLET PO SCH ×2 (11:26→20:26)
[2022-01-05] MEDS: Insulin DETEMIR 100 UNIT/ML X5UNITS SUBQ SCH ×2 (11:28→20:26)
[2022-01-05] MEDS ORDERED: CLINIMIX IVPB SCH (17:00)
[2022-01-05] MEDS ORDERED: [UNRECOGNIZED DRUG - OTHER] IVPB SCH (17:00)
[2022-01-05] MEDS ORDERED: SODIUM ACETATE IVPB SCH (17:00)
[2022-01-05] MEDS ORDERED: AMINO ACIDS 10% IVPB SCH (17:00)
[2022-01-06] MEDS: Insulin LISPRO 300 UNITS/3 ML VIAL SUBQ SCH ×6 (00:14→20:57)
[2022-01-06 05:10] LABS: Alanine Aminotransferase 18 Units/L (7-52); Albumin 2.8 g/dL (3.5-5.7); Albumin/Globulin Ratio 1.2 (1.1-2.2); Alkaline Phosphatase 88 Units/L (34-104); Aspartate Amino Transferase 13 Units/L (13-39); BUN/Creatinine Ratio 52 (6-26); Bilirubin,Total 0.9 mg/dL (0.3-1.0); Blood Urea Nitrogen 41 mg/dL (8-23); Calcium 8.5 mg/dL (8.6-10.3); Carbon Dioxide 29 mEq/L (23-29); Chloride 96 mEq/L (98-107); Globulin 2.3 g/dL (2.4-3.5); Glucose 205 mg/dL (70-105); Magnesium 2.2 mg/dL (1.6-2.6); Osmolality,Calculated 288 (280-300); Phosphorous 2.9 mg/dL (2.7-4.5); Potassium 3.8 mEq/L (3.5-5.1); Sodium 131 mEq/L (136-145); Total Protein 5.1 g/dL (6.4-8.9); eGFR For African Americans > 60 (> 60); eGFR For Non-African Americans > 60 (> 60)
[2022-01-06] MEDS: Pantoprazole 40 MG VIAL IVP SCH ×2 (06:17→18:15)
[2022-01-06] MEDS: *HR* Heparin 5,000 UNIT/ML VIAL SQ SCH ×3 (06:18→20:59)
[2022-01-06] MEDS: Furosemide 40 MG/4 ML VIAL IVP SCH ×2 (08:28→20:59)
[2022-01-06] MEDS: Magnesium Oxide 400 MG TABLET PO SCH ×2 (08:32→20:59)
[2022-01-06] MEDS: NIFEdipine XL (24 HR) 60 MG TAB.ER.24 PO SCH (08:32)
[2022-01-06] MEDS: carvediloL 6.25 MG TABLET PO SCH ×2 (08:32→20:58)
[2022-01-06] MEDS: lisinopriL 5 MG TABLET PO SCH (08:33)
[2022-01-06] MEDS: Nicotine 21 MG PATCH.TD24 TD SCH (08:33)
[2022-01-06] MEDS: Insulin DETEMIR 100 UNIT/ML X5UNITS SUBQ SCH ×2 (11:26→20:59)
[2022-01-06] MEDS: polyethylene glycoL 3350 17 GM POWD.PACK PO SCH ×2 (16:31→20:59)
[2022-01-06] MEDS ORDERED: Clinimix 5%-20% SOLUTION 2,000 ML with Amino Acids 10% 200 ML, MVI, adult with vitami... IV SCH (17:00)
[2022-01-07] MEDS: Insulin LISPRO 300 UNITS/3 ML VIAL SUBQ SCH ×5 (00:44→17:36)
[2022-01-07] MEDS: Pantoprazole 40 MG VIAL IVP SCH ×2 (06:41→17:29)
[2022-01-07] MEDS: *HR* Heparin 5,000 UNIT/ML VIAL SQ SCH ×3 (06:42→22:01)
[2022-01-07] MEDS: Furosemide 40 MG/4 ML VIAL IVP SCH ×2 (09:31→22:00)
[2022-01-07] MEDS: polyethylene glycoL 3350 17 GM POWD.PACK PO SCH ×3 (09:37→22:02)
[2022-01-07] MEDS: Nicotine 21 MG PATCH.TD24 TD SCH (09:38)
[2022-01-07] MEDS: carvediloL 6.25 MG TABLET PO SCH ×2 (09:42→22:00)
[2022-01-07] MEDS: Magnesium Oxide 400 MG TABLET PO SCH ×2 (09:42→22:00)
[2022-01-07] MEDS: NIFEdipine XL (24 HR) 60 MG TAB.ER.24 PO SCH (09:42)
[2022-01-07] MEDS: lisinopriL 5 MG TABLET PO SCH (09:43)
[2022-01-07] MEDS: Insulin DETEMIR 100 UNIT/ML X5UNITS SUBQ SCH (09:49)
[2022-01-07 10:19] LABS: BUN/Creatinine Ratio 56 (6-26); Blood Urea Nitrogen 40 mg/dL (8-23); Calcium 8.7 mg/dL (8.6-10.3); Carbon Dioxide 30 mEq/L (23-29); Chloride 96 mEq/L (98-107); Magnesium 2.1 mg/dL (1.6-2.6); Phosphorous 3.3 mg/dL (2.7-4.5); Potassium 4.2 mEq/L (3.5-5.1); Sodium 131 mEq/L (136-145); eGFR For African Americans > 60 (> 60); eGFR For Non-African Americans > 60 (> 60)
[2022-01-07 10:25] LABS: Hematocrit 29.7 % (37.5-50.1); Hemoglobin 9.8 g/dL (12.9-16.9); Mean Corpuscular Hemoglobin 31.7 pg (28.0-33.3); Mean Platelet Volume 12.1 fL (9.4-12.4); Platelet Count 114 K/mcL (140-400); Red Blood Count 3.09 M/mcL (4.19-5.50); White Blood Count 4.8 K/mcL (4.3-11.1)
[2022-01-07 10:37] LABS: Mean Corpuscular Volume 96.1 fL (83.0-100.0)
[2022-01-07 11:26] LABS: Glucose 256 mg/dL (70-105); Osmolality,Calculated 291 (280-300)
[2022-01-07] MEDS ORDERED: Clinimix E 5%-15% SOLUTION 2,000 ML IVC SCH (17:00)
[2022-01-07] MEDS: Melatonin 3 MG TABLET PO PRN (22:00)
[2022-01-08] MEDS: Insulin DETEMIR 100 UNIT/ML X5UNITS SUBQ SCH ×3 (00:23→20:01)
[2022-01-08] MEDS: Insulin LISPRO 300 UNITS/3 ML VIAL SUBQ SCH ×7 (00:26→20:00)
[2022-01-08 02:37] LABS: BUN/Creatinine Ratio 53 (6-26); Blood Urea Nitrogen 47 mg/dL (8-23); Calcium 8.6 mg/dL (8.6-10.3); Carbon Dioxide 27 mEq/L (23-29); Chloride 94 mEq/L (98-107); Glucose 283 mg/dL (70-105); Osmolality,Calculated 289 (280-300); Phosphorous 3.8 mg/dL (2.7-4.5); Potassium 4.3 mEq/L (3.5-5.1); Sodium 128 mEq/L (136-145); eGFR For African Americans > 60 (> 60); eGFR For Non-African Americans > 60 (> 60)
[2022-01-08] MEDS: *HR* Heparin 5,000 UNIT/ML VIAL SQ SCH ×3 (06:13→20:05)
[2022-01-08] MEDS: Pantoprazole 40 MG VIAL IVP SCH ×2 (06:13→19:08)
[2022-01-08] MEDS: Nicotine 21 MG PATCH.TD24 TD SCH (09:01)
[2022-01-08] MEDS: polyethylene glycoL 3350 17 GM POWD.PACK PO SCH ×3 (09:01→20:03)
[2022-01-08] MEDS: Furosemide 40 MG/4 ML VIAL IVP SCH ×2 (09:02→20:01)
[2022-01-08] MEDS: Magnesium Oxide 400 MG TABLET PO SCH ×2 (09:05→20:03)
[2022-01-08] MEDS: carvediloL 6.25 MG TABLET PO SCH ×2 (09:05→20:02)
[2022-01-08] MEDS: NIFEdipine XL (24 HR) 60 MG TAB.ER.24 PO SCH (09:06)
[2022-01-08] MEDS: lisinopriL 5 MG TABLET PO SCH (09:06)
[2022-01-08] MEDS ORDERED: Clinimix E 5%-15% SOLUTION 2,000 ML with MVI, adult with vitamin K 10 ML IVC SCH (17:00)
[2022-01-09] MEDS: Insulin LISPRO 300 UNITS/3 ML VIAL SUBQ SCH ×7 (01:04→23:31)
[2022-01-09 04:00] LABS: Alanine Aminotransferase 14 Units/L (7-52); Albumin 2.9 g/dL (3.5-5.7); Albumin/Globulin Ratio 1.1 (1.1-2.2); Alkaline Phosphatase 85 Units/L (34-104); Aspartate Amino Transferase 11 Units/L (13-39); BUN/Creatinine Ratio 55 (6-26); Blood Urea Nitrogen 53 mg/dL (8-23); Calcium 8.6 mg/dL (8.6-10.3); Carbon Dioxide 28 mEq/L (23-29); Chloride 95 mEq/L (98-107); Globulin 2.6 g/dL (2.4-3.5); Glucose 178 mg/dL (70-105); Magnesium 2.2 mg/dL (1.6-2.6); Osmolality,Calculated 287 (280-300); Phosphorous 5.5 mg/dL (2.7-4.5); Potassium 4.2 mEq/L (3.5-5.1); Sodium 129 mEq/L (136-145); Total Protein 5.5 g/dL (6.4-8.9); eGFR For African Americans > 60 (> 60); eGFR For Non-African Americans > 60 (> 60)
[2022-01-09] MEDS: *HR* Heparin 5,000 UNIT/ML VIAL SQ SCH ×3 (04:59→20:30)
[2022-01-09] MEDS: Pantoprazole 40 MG VIAL IVP SCH ×2 (04:59→17:02)
[2022-01-09] MEDS: carvediloL 6.25 MG TABLET PO SCH ×2 (10:39→20:27)
[2022-01-09] MEDS: Furosemide 40 MG/4 ML VIAL IVP SCH ×2 (10:39→20:28)
[2022-01-09] MEDS: Magnesium Oxide 400 MG TABLET PO SCH ×2 (10:40→20:28)
[2022-01-09] MEDS: Nicotine 21 MG PATCH.TD24 TD SCH (10:40)
[2022-01-09] MEDS: Insulin DETEMIR 100 UNIT/ML X5UNITS SUBQ SCH ×2 (10:40→20:29)
[2022-01-09] MEDS: polyethylene glycoL 3350 17 GM POWD.PACK PO SCH ×3 (10:40→20:28)
[2022-01-09] MEDS: lisinopriL 5 MG TABLET PO SCH (10:41)
[2022-01-09] MEDS: NIFEdipine XL (24 HR) 60 MG TAB.ER.24 PO SCH (10:41)
[2022-01-09] MEDS ORDERED: [UNRECOGNIZED DRUG - OTHER] IVPB SCH (17:00)
[2022-01-09] MEDS ORDERED: CLINIMIX IVPB SCH (17:00)
[2022-01-09] MEDS ORDERED: SODIUM ACETATE IVPB SCH (17:00)
[2022-01-09] MEDS ORDERED: Clinimix E 5%-15% SOLUTION 2,000 ML IVC SCH (17:00)
[2022-01-09] MEDS ORDERED: Clinimix E 5%-20% SOLUTION 2,000 ML, Amino Acids 10% 0 ML with MVI, adult with vitami... IVC SCH (17:00)
[2022-01-09 20:57] LABS: Basophils % 0.6 %; Eosinophils % 0.8 %; Hematocrit 29.5 % (37.5-50.1); Hemoglobin 9.6 g/dL (12.9-16.9); Immature Granulocytes % 0.2 % (0-4); Immature Platelets 7.4 % (1.1-6.1); Lymphocytes # 1.4 K/mcL (0.6-4.6); Lymphocytes % 28.5 %; Mean Corpuscular HGB Conc 32.5 g/dL (31.6-35.5); Mean Corpuscular Hemoglobin 31.1 pg (28.0-33.3); Mean Corpuscular Volume 95.5 fL (83.0-100.0); Mean Platelet Volume 12.1 fL (9.4-12.4); Monocytes # 0.5 K/mcL (0.0-1.3); Monocytes % 9.9 %; Neutrophils # 2.9 K/mcL (1.6-8.9); Platelet Count 103 K/mcL (140-400); Red Blood Count 3.09 M/mcL (4.19-5.50); White Blood Count 4.8 K/mcL (4.3-11.1)
[2022-01-10 02:58] LABS: Basophils % 0.4 %; Eosinophils # 0.1 K/mcL (0.0-0.6); Eosinophils % 1.1 %; Hematocrit 28.3 % (37.5-50.1); Hemoglobin 9.3 g/dL (12.9-16.9); Immature Granulocytes % 0.4 % (0-4); Lymphocytes # 1.5 K/mcL (0.6-4.6); Lymphocytes % 32.5 %; Mean Corpuscular HGB Conc 32.9 g/dL (31.6-35.5); Mean Corpuscular Volume 94.3 fL (83.0-100.0); Monocytes # 0.5 K/mcL (0.0-1.3); Monocytes % 10.6 %; Neutrophils # 2.5 K/mcL (1.6-8.9); Platelet Count 109 K/mcL (140-400); Red Cell Distribution Width 17.9 % (11.5-14.5); White Blood Count 4.5 K/mcL (4.3-11.1)
[2022-01-10 03:17] LABS: Alanine Aminotransferase 13 Units/L (7-52); Albumin 2.7 g/dL (3.5-5.7); Albumin/Globulin Ratio 1.1 (1.1-2.2); Alkaline Phosphatase 77 Units/L (34-104); Aspartate Amino Transferase 10 Units/L (13-39); BUN/Creatinine Ratio 51 (6-26); Bilirubin,Total 0.9 mg/dL (0.3-1.0); Blood Urea Nitrogen 52 mg/dL (8-23); Calcium 8.3 mg/dL (8.6-10.3); Carbon Dioxide 27 mEq/L (23-29); Chloride 95 mEq/L (98-107); Globulin 2.5 g/dL (2.4-3.5); Glucose 267 mg/dL (70-105); Magnesium 2.1 mg/dL (1.6-2.6); Osmolality,Calculated 291 (280-300); Phosphorous 4.5 mg/dL (2.7-4.5); Potassium 4.2 mEq/L (3.5-5.1); Sodium 129 mEq/L (136-145); Total Protein 5.2 g/dL (6.4-8.9); eGFR For African Americans > 60 (> 60); eGFR For Non-African Americans > 60 (> 60)
[2022-01-10 03:19] LABS: Anisocytosis 1+ (Not Present); Platelet Estimate Slight Decrease (Normal); Reactive Lymphocytes Present (Not Present)
[2022-01-10] MEDS: Insulin LISPRO 300 UNITS/3 ML VIAL SUBQ SCH ×5 (03:56→20:46)
[2022-01-10] MEDS: *HR* Heparin 5,000 UNIT/ML VIAL SQ SCH ×3 (05:15→20:45)
[2022-01-10] MEDS: Pantoprazole 40 MG VIAL IVP SCH ×2 (05:15→17:19)
[2022-01-10] MEDS: Nicotine 21 MG PATCH.TD24 TD SCH (07:51)
[2022-01-10] MEDS: Magnesium Oxide 400 MG TABLET PO SCH ×2 (07:53→20:45)
[2022-01-10] MEDS: lisinopriL 5 MG TABLET PO SCH (07:53)
[2022-01-10] MEDS: carvediloL 6.25 MG TABLET PO SCH ×2 (07:53→20:45)
[2022-01-10] MEDS: NIFEdipine XL (24 HR) 60 MG TAB.ER.24 PO SCH (07:53)
[2022-01-10] MEDS: Furosemide 40 MG/4 ML VIAL IVP SCH (07:53)
[2022-01-10] MEDS: polyethylene glycoL 3350 17 GM POWD.PACK PO SCH ×3 (07:54→20:46)
[2022-01-10] MEDS: Insulin DETEMIR 100 UNIT/ML X5UNITS SUBQ SCH ×2 (11:57→21:23)
[2022-01-10] MEDS ORDERED: CLINIMIX IVPB SCH (17:00)
[2022-01-10] MEDS ORDERED: Clinimix E 5%-15% SOLUTION 2,000 ML IVC SCH (17:00)
[2022-01-10] MEDS ORDERED: [UNRECOGNIZED DRUG - OTHER] IVPB SCH (17:00)
[2022-01-10] MEDS ORDERED: SODIUM ACETATE IVPB SCH (17:00)
[2022-01-11] MEDS: Insulin LISPRO 300 UNITS/3 ML VIAL SUBQ SCH ×7 (00:33→19:55)
[2022-01-11 04:07] LABS: Alanine Aminotransferase 13 Units/L (7-52); Albumin 2.6 g/dL (3.5-5.7); Alkaline Phosphatase 71 Units/L (34-104); Aspartate Amino Transferase 10 Units/L (13-39); BUN/Creatinine Ratio 48 (6-26); Bilirubin,Total 0.9 mg/dL (0.3-1.0); Blood Urea Nitrogen 46 mg/dL (8-23); Calcium 8.4 mg/dL (8.6-10.3); Carbon Dioxide 27 mEq/L (23-29); Chloride 97 mEq/L (98-107); Globulin 2.7 g/dL (2.4-3.5); Glucose 209 mg/dL (70-105); Magnesium 2.1 mg/dL (1.6-2.6); Osmolality,Calculated 288 (280-300); Phosphorous 3.7 mg/dL (2.7-4.5); Potassium 4.2 mEq/L (3.5-5.1); Sodium 130 mEq/L (136-145); Total Protein 5.3 g/dL (6.4-8.9); Triglycerides 108 mg/dL (< 150); eGFR For African Americans > 60 (> 60); eGFR For Non-African Americans > 60 (> 60)
[2022-01-11] MEDS: Pantoprazole 40 MG VIAL IVP SCH ×2 (05:30→16:52)
[2022-01-11] MEDS: *HR* Heparin 5,000 UNIT/ML VIAL SQ SCH ×3 (05:30→20:18)
[2022-01-11] MEDS: Insulin DETEMIR 100 UNIT/ML X5UNITS SUBQ SCH ×2 (09:58→21:10)
[2022-01-11] MEDS: Nicotine 21 MG PATCH.TD24 TD SCH (09:59)
[2022-01-11] MEDS: NIFEdipine XL (24 HR) 60 MG TAB.ER.24 PO SCH (10:00)
[2022-01-11] MEDS: polyethylene glycoL 3350 17 GM POWD.PACK PO SCH ×3 (10:00→20:18)
[2022-01-11] MEDS: carvediloL 6.25 MG TABLET PO SCH ×2 (10:01→20:19)
[2022-01-11] MEDS: Furosemide 40 MG/4 ML VIAL IVP SCH ×2 (10:01→20:19)
[2022-01-11] MEDS: Magnesium Oxide 400 MG TABLET PO SCH ×2 (10:01→20:18)
[2022-01-11 13:09] LABS: Basophils % 0.6 %; Eosinophils # 0.1 K/mcL (0.0-0.6); Eosinophils % 1.6 %; Hemoglobin 9.2 g/dL (12.9-16.9); Immature Granulocytes % 0.4 % (0-4); Lymphocytes # 1.6 K/mcL (0.6-4.6); Lymphocytes % 30.3 %; Mean Corpuscular HGB Conc 31.7 g/dL (31.6-35.5); Mean Corpuscular Hemoglobin 30.5 pg (28.0-33.3); Mean Platelet Volume 11.3 fL (9.4-12.4); Monocytes # 0.4 K/mcL (0.0-1.3); Monocytes % 8.3 %; Platelet Count 105 K/mcL (140-400); Red Blood Count 3.02 M/mcL (4.19-5.50); Red Cell Distribution Width 17.8 % (11.5-14.5); Segmented Neutrophils % 58.8 %; White Blood Count 5.2 K/mcL (4.3-11.1)
[2022-01-11 13:45] LABS: BUN/Creatinine Ratio 48 (6-26); Blood Urea Nitrogen 44 mg/dL (8-23); Calcium 8.5 mg/dL (8.6-10.3); Carbon Dioxide 26 mEq/L (23-29); Chloride 97 mEq/L (98-107); Glucose 239 mg/dL (70-105); Osmolality,Calculated 291 (280-300); Potassium 4.2 mEq/L (3.5-5.1); Sodium 131 mEq/L (136-145); eGFR For African Americans > 60 (> 60); eGFR For Non-African Americans > 60 (> 60)
[2022-01-11] MEDS ORDERED: metOLazone 5 MG TABLET PO ONE (20:00)
[2022-01-12] MEDS: Insulin LISPRO 300 UNITS/3 ML VIAL SUBQ SCH ×6 (01:44→20:31)
[2022-01-12 04:15] LABS: Basophils % 0.5 %; Eosinophils # 0.1 K/mcL (0.0-0.6); Eosinophils % 1.8 %; Hematocrit 28.2 % (37.5-50.1); Hemoglobin 9.3 g/dL (12.9-16.9); Immature Granulocytes % 0.5 % (0-4); Lymphocytes # 1.9 K/mcL (0.6-4.6); Lymphocytes % 31.3 %; Mean Platelet Volume 11.4 fL (9.4-12.4); Monocytes # 0.4 K/mcL (0.0-1.3); Monocytes % 7.2 %; Neutrophils # 3.5 K/mcL (1.6-8.9); Platelet Count 100 K/mcL (140-400); Red Cell Distribution Width 17.4 % (11.5-14.5); Segmented Neutrophils % 58.7 %
[2022-01-12 04:27] LABS: BUN/Creatinine Ratio 48 (6-26); Blood Urea Nitrogen 50 mg/dL (8-23); Calcium 8.2 mg/dL (8.6-10.3); Carbon Dioxide 26 mEq/L (23-29); Chloride 98 mEq/L (98-107); Glucose 106 mg/dL (70-105); Osmolality,Calculated 286 (280-300); Potassium 3.9 mEq/L (3.5-5.1); Sodium 131 mEq/L (136-145); eGFR For African Americans > 60 (> 60); eGFR For Non-African Americans > 60 (> 60)
[2022-01-12] MEDS: *HR* Heparin 5,000 UNIT/ML VIAL SQ SCH ×3 (05:22→20:32)
[2022-01-12] MEDS: Pantoprazole 40 MG VIAL IVP SCH ×2 (05:29→18:45)
[2022-01-12] MEDS: NIFEdipine XL (24 HR) 60 MG TAB.ER.24 PO SCH (10:20)
[2022-01-12] MEDS: carvediloL 6.25 MG TABLET PO SCH ×3 (10:32→21:10)
[2022-01-12] MEDS: polyethylene glycoL 3350 17 GM POWD.PACK PO SCH ×3 (10:33→20:39)
[2022-01-12] MEDS: Magnesium Oxide 400 MG TABLET PO SCH ×3 (10:34→20:48)
[2022-01-12] MEDS: Furosemide 40 MG/4 ML VIAL IVP SCH ×2 (10:34→20:39)
[2022-01-12] MEDS: Insulin DETEMIR 100 UNIT/ML X5UNITS SUBQ SCH ×2 (10:36→20:31)
[2022-01-12] MEDS: Nicotine 21 MG PATCH.TD24 TD SCH (10:39)
[2022-01-12] MEDS ORDERED: metOLazone 5 MG TABLET PO ONE (14:30)
[2022-01-12] MEDS: *HR* Dextrose 50 % in Water (Syg) 50 ML SYRINGE IVP PRN (20:58)
[2022-01-13] MEDS: Insulin LISPRO 300 UNITS/3 ML VIAL SUBQ SCH ×5 (00:10→21:31)
[2022-01-13] MEDS: Pantoprazole 40 MG VIAL IVP SCH ×2 (06:03→18:54)
[2022-01-13] MEDS: *HR* Heparin 5,000 UNIT/ML VIAL SQ SCH ×3 (06:03→21:32)
[2022-01-13 06:41] LABS: Hematocrit 30.1 % (37.5-50.1); Hemoglobin 10.1 g/dL (12.9-16.9); Lymphocytes # 1.7 K/mcL (0.6-4.6); Mean Corpuscular HGB Conc 33.6 g/dL (31.6-35.5); Mean Corpuscular Hemoglobin 32.1 pg (28.0-33.3); Mean Corpuscular Volume 95.6 fL (83.0-100.0); Mean Platelet Volume 11.8 fL (9.4-12.4); Platelet Count 106 K/mcL (140-400); Red Blood Count 3.15 M/mcL (4.19-5.50); Red Cell Distribution Width 17.4 % (11.5-14.5)
[2022-01-13 06:56] LABS: BUN/Creatinine Ratio 41 (6-26); Blood Urea Nitrogen 55 mg/dL (8-23); Calcium 8.6 mg/dL (8.6-10.3); Carbon Dioxide 26 mEq/L (23-29); Chloride 94 mEq/L (98-107); Glucose 233 mg/dL (70-105); Osmolality,Calculated 299 (280-300); Potassium 3.9 mEq/L (3.5-5.1); Sodium 133 mEq/L (136-145); eGFR For African Americans > 60 (> 60); eGFR For Non-African Americans 52 (> 60)
[2022-01-13 08:19] LABS: Monocytes # 0.3 K/mcL (0.0-1.3); Neutrophils # 4.9 K/mcL (1.6-8.9); Platelet Estimate Decreased (Normal)
[2022-01-13] MEDS: Furosemide 40 MG/4 ML VIAL IVP SCH ×2 (16:38→21:32)
[2022-01-13] MEDS: carvediloL 6.25 MG TABLET PO SCH ×2 (16:38→21:32)
[2022-01-13] MEDS: Insulin DETEMIR 100 UNIT/ML X5UNITS SUBQ SCH ×2 (16:39→21:32)
[2022-01-13] MEDS: polyethylene glycoL 3350 17 GM POWD.PACK PO SCH ×2 (16:39→21:32)
[2022-01-13] MEDS: Magnesium Oxide 400 MG TABLET PO SCH ×2 (16:39→21:32)
[2022-01-13] MEDS: Nicotine 21 MG PATCH.TD24 TD SCH (18:53)
[2022-01-13] MEDS: NIFEdipine XL (24 HR) 60 MG TAB.ER.24 PO SCH (18:53)
[2022-01-14] MEDS: Insulin LISPRO 300 UNITS/3 ML VIAL SUBQ SCH ×7 (00:13→23:59)
[2022-01-14] MEDS: *HR* Heparin 5,000 UNIT/ML VIAL SQ SCH ×3 (07:15→20:56)
[2022-01-14] MEDS: Pantoprazole 40 MG VIAL IVP SCH ×2 (07:16→17:05)
[2022-01-14] MEDS: Furosemide 40 MG/4 ML VIAL IVP SCH ×2 (10:15→20:52)
[2022-01-14] MEDS: carvediloL 6.25 MG TABLET PO SCH ×2 (11:15→20:57)
[2022-01-14] MEDS: Magnesium Oxide 400 MG TABLET PO SCH ×2 (11:16→20:57)
[2022-01-14] MEDS: Insulin DETEMIR 100 UNIT/ML X5UNITS SUBQ SCH ×2 (11:16→20:56)
[2022-01-14] MEDS: polyethylene glycoL 3350 17 GM POWD.PACK PO SCH ×3 (11:16→20:57)
[2022-01-14] MEDS: Nicotine 21 MG PATCH.TD24 TD SCH (11:16)
[2022-01-14] MEDS: NIFEdipine XL (24 HR) 60 MG TAB.ER.24 PO SCH (11:17)
[2022-01-15] MEDS: Insulin LISPRO 300 UNITS/3 ML VIAL SUBQ SCH ×5 (04:12→20:35)
[2022-01-15] MEDS: *HR* Heparin 5,000 UNIT/ML VIAL SQ SCH ×3 (05:33→20:34)
[2022-01-15] MEDS: Pantoprazole 40 MG VIAL IVP SCH ×2 (05:33→17:26)
[2022-01-15] MEDS: NIFEdipine XL (24 HR) 60 MG TAB.ER.24 PO SCH (09:03)
[2022-01-15] MEDS: Magnesium Oxide 400 MG TABLET PO SCH ×2 (09:03→20:34)
[2022-01-15] MEDS: Furosemide 40 MG/4 ML VIAL IVP SCH ×2 (09:03→20:33)
[2022-01-15] MEDS: Nicotine 21 MG PATCH.TD24 TD SCH (09:04)
[2022-01-15] MEDS: polyethylene glycoL 3350 17 GM POWD.PACK PO SCH ×3 (09:05→20:34)
[2022-01-15] MEDS: Insulin DETEMIR 100 UNIT/ML X5UNITS SUBQ SCH ×2 (09:16→20:35)
[2022-01-15] MEDS: carvediloL 6.25 MG TABLET PO SCH ×2 (09:16→20:34)
[2022-01-16] MEDS: Insulin LISPRO 300 UNITS/3 ML VIAL SUBQ SCH ×6 (03:50→22:02)
[2022-01-16] MEDS: Pantoprazole 40 MG VIAL IVP SCH ×2 (06:38→17:33)
[2022-01-16] MEDS: *HR* Heparin 5,000 UNIT/ML VIAL SQ SCH ×3 (06:38→22:03)
[2022-01-16] MEDS: carvediloL 6.25 MG TABLET PO SCH ×2 (08:00→22:02)
[2022-01-16] MEDS: polyethylene glycoL 3350 17 GM POWD.PACK PO SCH ×3 (08:00→22:03)
[2022-01-16] MEDS: Furosemide 40 MG/4 ML VIAL IVP SCH ×2 (08:01→22:03)
[2022-01-16] MEDS: NIFEdipine XL (24 HR) 60 MG TAB.ER.24 PO SCH (08:01)
[2022-01-16] MEDS: Magnesium Oxide 400 MG TABLET PO SCH ×2 (08:01→22:02)
[2022-01-16] MEDS: Nicotine 21 MG PATCH.TD24 TD SCH (08:08)
[2022-01-16] MEDS: Insulin DETEMIR 100 UNIT/ML X5UNITS SUBQ SCH ×2 (10:45→22:10)
[2022-01-17] MEDS: Insulin LISPRO 300 UNITS/3 ML VIAL SUBQ SCH ×7 (00:12→23:54)
[2022-01-17] MEDS: *HR* Heparin 5,000 UNIT/ML VIAL SQ SCH ×3 (05:34→20:35)
[2022-01-17] MEDS: Pantoprazole 40 MG VIAL IVP SCH ×2 (05:34→17:50)
[2022-01-17] MEDS: polyethylene glycoL 3350 17 GM POWD.PACK PO SCH ×3 (09:23→20:35)
[2022-01-17] MEDS: Magnesium Oxide 400 MG TABLET PO SCH ×2 (09:23→20:35)
[2022-01-17] MEDS: carvediloL 6.25 MG TABLET PO SCH ×2 (09:23→20:35)
[2022-01-17] MEDS: Furosemide 40 MG/4 ML VIAL IVP SCH ×2 (09:23→20:35)
[2022-01-17] MEDS: NIFEdipine XL (24 HR) 60 MG TAB.ER.24 PO SCH (09:23)
[2022-01-17] MEDS: Nicotine 21 MG PATCH.TD24 TD SCH (09:24)
[2022-01-17] MEDS: Insulin DETEMIR 100 UNIT/ML X5UNITS SUBQ SCH ×2 (09:29→20:35)
[2022-01-18] MEDS: Insulin LISPRO 300 UNITS/3 ML VIAL SUBQ SCH ×5 (03:49→20:21)
[2022-01-18] MEDS: *HR* Heparin 5,000 UNIT/ML VIAL SQ SCH ×3 (05:48→20:21)
[2022-01-18] MEDS: Pantoprazole 40 MG VIAL IVP SCH ×2 (05:48→17:58)
[2022-01-18] MEDS: *HR* Dextrose 50 % in Water (Syg) 50 ML SYRINGE IVP PRN ×2 (07:52→20:13)
[2022-01-18] MEDS: Furosemide 40 MG/4 ML VIAL IVP SCH ×2 (09:23→20:12)
[2022-01-18] MEDS: Magnesium Oxide 400 MG TABLET PO SCH ×2 (09:23→20:14)
[2022-01-18] MEDS: NIFEdipine XL (24 HR) 60 MG TAB.ER.24 PO SCH (09:23)
[2022-01-18] MEDS: carvediloL 6.25 MG TABLET PO SCH ×2 (09:23→20:13)
[2022-01-18] MEDS: Insulin DETEMIR 100 UNIT/ML X5UNITS SUBQ SCH ×2 (09:25→20:22)
[2022-01-18] MEDS: polyethylene glycoL 3350 17 GM POWD.PACK PO SCH ×3 (09:26→20:14)
[2022-01-18] MEDS: Nicotine 21 MG PATCH.TD24 TD SCH (09:26)
[2022-01-19] MEDS: Insulin LISPRO 300 UNITS/3 ML VIAL SUBQ SCH ×6 (01:14→20:24)
[2022-01-19] MEDS: Pantoprazole 40 MG VIAL IVP SCH ×2 (04:30→16:13)
[2022-01-19] MEDS: *HR* Heparin 5,000 UNIT/ML VIAL SQ SCH ×3 (04:30→20:27)
[2022-01-19] MEDS: *HR* Dextrose 50 % in Water (Syg) 50 ML SYRINGE IVP PRN (04:30)
[2022-01-19] MEDS: NIFEdipine XL (24 HR) 60 MG TAB.ER.24 PO SCH (07:14)
[2022-01-19] MEDS: polyethylene glycoL 3350 17 GM POWD.PACK PO SCH ×3 (07:14→20:23)
[2022-01-19] MEDS: carvediloL 6.25 MG TABLET PO SCH ×2 (07:14→20:23)
[2022-01-19] MEDS: Nicotine 21 MG PATCH.TD24 TD SCH (07:14)
[2022-01-19] MEDS: Furosemide 40 MG/4 ML VIAL IVP SCH ×2 (07:14→22:30)
[2022-01-19] MEDS: Magnesium Oxide 400 MG TABLET PO SCH ×2 (07:14→20:23)
[2022-01-19] MEDS: Insulin DETEMIR 100 UNIT/ML X5UNITS SUBQ SCH ×2 (07:17→20:29)
[2022-01-20] MEDS: Insulin LISPRO 300 UNITS/3 ML VIAL SUBQ SCH ×6 (00:10→21:44)
[2022-01-20] MEDS: *HR* Heparin 5,000 UNIT/ML VIAL SQ SCH ×3 (06:13→21:45)
[2022-01-20] MEDS: Pantoprazole 40 MG VIAL IVP SCH ×2 (06:57→16:54)
[2022-01-20] MEDS: polyethylene glycoL 3350 17 GM POWD.PACK PO SCH ×3 (08:20→21:45)
[2022-01-20] MEDS: Insulin DETEMIR 100 UNIT/ML X5UNITS SUBQ SCH ×2 (08:20→21:44)
[2022-01-20] MEDS: carvediloL 6.25 MG TABLET PO SCH ×2 (08:20→21:45)
[2022-01-20] MEDS: NIFEdipine XL (24 HR) 60 MG TAB.ER.24 PO SCH (08:21)
[2022-01-20] MEDS: Magnesium Oxide 400 MG TABLET PO SCH ×2 (08:21→21:45)
[2022-01-20] MEDS: Nicotine 21 MG PATCH.TD24 TD SCH (08:24)
[2022-01-20] MEDS: Furosemide 40 MG/4 ML VIAL IVP SCH ×2 (08:24→20:05)
[2022-01-21] MEDS: Insulin LISPRO 300 UNITS/3 ML VIAL SUBQ SCH ×6 (00:26→21:45)
[2022-01-21 05:06] LABS: Basophils % 0.3 %; Eosinophils % 0.3 %; Hematocrit 31.8 % (37.5-50.1); Hemoglobin 10.5 g/dL (12.9-16.9); Immature Granulocytes % 0.3 % (0-4); Lymphocytes # 1.4 K/mcL (0.6-4.6); Mean Corpuscular Hemoglobin 31.1 pg (28.0-33.3); Mean Corpuscular Volume 94.1 fL (83.0-100.0); Mean Platelet Volume 10.3 fL (9.4-12.4); Monocytes # 0.4 K/mcL (0.0-1.3); Monocytes % 7.4 %; Platelet Count 135 K/mcL (140-400); Red Blood Count 3.38 M/mcL (4.19-5.50); Red Cell Distribution Width 17.2 % (11.5-14.5); Segmented Neutrophils % 67.7 %
[2022-01-21] MEDS: *HR* Heparin 5,000 UNIT/ML VIAL SQ SCH ×3 (05:20→22:07)
[2022-01-21 05:29] LABS: BUN/Creatinine Ratio 43 (6-26); Blood Urea Nitrogen 52 mg/dL (8-23); Calcium 8.7 mg/dL (8.6-10.3); Carbon Dioxide 37 mEq/L (23-29); Chloride 89 mEq/L (98-107); Glucose 230 mg/dL (70-105); Osmolality,Calculated 297 (280-300); Potassium 3.4 mEq/L (3.5-5.1); Sodium 133 mEq/L (136-145); eGFR For African Americans > 60 (> 60); eGFR For Non-African Americans 59 (> 60)
[2022-01-21] MEDS: Pantoprazole 40 MG VIAL IVP SCH ×2 (05:43→17:57)
[2022-01-21] MEDS: NIFEdipine XL (24 HR) 60 MG TAB.ER.24 PO SCH (11:50)
[2022-01-21] MEDS: Nicotine 21 MG PATCH.TD24 TD SCH (11:52)
[2022-01-21] MEDS: Magnesium Oxide 400 MG TABLET PO SCH ×2 (11:52→22:08)
[2022-01-21] MEDS: Insulin DETEMIR 100 UNIT/ML X5UNITS SUBQ SCH ×2 (11:53→22:08)
[2022-01-21] MEDS: polyethylene glycoL 3350 17 GM POWD.PACK PO SCH ×3 (11:54→22:08)
[2022-01-21] MEDS: carvediloL 6.25 MG TABLET PO SCH ×2 (12:13→22:05)
[2022-01-21] MEDS: Furosemide 40 MG/4 ML VIAL IVP SCH ×2 (12:13→22:07)
[2022-01-21] MEDS ORDERED: Methylnaltrexone 12 MG/0.6 ML SYRINGE SQ ONE (17:00)
[2022-01-21 17:25] LABS: ABG Base Excess 12 mEq/L (-2 to 3); ABG HCO3 37 mEq/L (21-27); ABG Oxygen Saturation 86 % (95-98); ABG PCO2 46 mmHg (35-45); ABG PH 7.51 pH Units (7.32-7.45); ABG PO2 47 mmHg (85-104); ABG TCO2 38 mEq/L (20-26); Blood Gas Modality 100
[2022-01-21] MEDS ORDERED: Morphine Sulfate 2 MG/ML SYRINGE IVP ONE (22:21)
[2022-01-21] MEDS ORDERED: Isovue-370 500 ML BOTTLE IVP ONE (23:09)
[2022-01-22] MEDS ORDERED: *HR* Midazolam HCl 2 MG/2 ML VIAL IV ONE
[2022-01-22] MEDS ORDERED: Midazolam HCl 50 MG/50 ML IV.SOLN IVC SCH
[2022-01-22] MEDS ORDERED: Artificial Tears SOLN 15 ML BOTTLE BOTH EYES PRN
[2022-01-22] MEDS ORDERED: FentaNYL (PF) 1,000 MCG/100 ML IV.SOLN IVC SCH
[2022-01-22 00:58] LABS: ABG Base Excess 13 mEq/L (-2 to 3); ABG HCO3 38 mEq/L (21-27); ABG Oxygen Saturation 91 % (95-98); ABG PCO2 48 mmHg (35-45); ABG PO2 57 mmHg (85-104); ABG TCO2 39 mEq/L (20-26)
[2022-01-22] MEDS: Artificial Tears SOLN 15 ML BOTTLE BOTH EYES SCH ×7 (02:31→23:18)
[2022-01-22] MEDS: Insulin LISPRO 300 UNITS/3 ML VIAL SUBQ SCH ×7 (02:52→23:45)
[2022-01-22] MEDS ORDERED: Vancomycin (wt based) 1,000 MG VIAL IVPB SCH (03:00)
[2022-01-22 03:27] LABS: ABG Base Excess 10 mEq/L (-2 to 3); ABG HCO3 35 mEq/L (21-27); ABG Oxygen Saturation 93 % (95-98); ABG PCO2 48 mmHg (35-45); ABG PH 7.47 pH Units (7.32-7.45); ABG PO2 64 mmHg (85-104); ABG TCO2 37 mEq/L (20-26); Blood Gas Modality ASSIST CONTROL; Blood Gas VT 500 cc
[2022-01-22] MEDS ORDERED: Vancomycin 2,000 MG/520 ML IV.SOLN IVPB ONE (04:00)
[2022-01-22] MEDS: *HR* Heparin 5,000 UNIT/ML VIAL SQ SCH ×3 (06:15→23:17)
[2022-01-22] MEDS: Pantoprazole 40 MG VIAL IVP SCH ×2 (06:15→16:32)
[2022-01-22 06:50] LABS: Hematocrit 31.3 % (37.5-50.1); Mean Corpuscular HGB Conc 31.9 g/dL (31.6-35.5); Mean Corpuscular Hemoglobin 30.9 pg (28.0-33.3); Mean Corpuscular Volume 96.6 fL (83.0-100.0); Mean Platelet Volume 10.4 fL (9.4-12.4); Platelet Count 121 K/mcL (140-400); Red Blood Count 3.24 M/mcL (4.19-5.50); Red Cell Distribution Width 17.3 % (11.5-14.5)
[2022-01-22] MEDS: Piperacillin/Tazobactam 3.375 GM in 0.9 % Sodium Chloride Mini Bag 100 ML IVPB SCH ×3 (07:01→23:17)
[2022-01-22] MEDS: Furosemide 40 MG/4 ML VIAL IVP SCH (07:02)
[2022-01-22] MEDS: Nicotine 21 MG PATCH.TD24 TD SCH (07:11)
[2022-01-22] MEDS: carvediloL 6.25 MG TABLET PO SCH ×3 (07:12→21:16)
[2022-01-22] MEDS: polyethylene glycoL 3350 17 GM POWD.PACK PO SCH ×2 (07:12→14:47)
[2022-01-22] MEDS: Magnesium Oxide 400 MG TABLET PO SCH ×3 (07:12→21:17)
[2022-01-22] MEDS: NIFEdipine XL (24 HR) 60 MG TAB.ER.24 PO SCH (07:12)
[2022-01-22 07:21] LABS: Calcium 8.5 mg/dL (8.6-10.3); Potassium 3.6 mEq/L (3.5-5.1)
[2022-01-22] MEDS: Chlorhexidine Rinse 15 ML MOUTHWASH MM SCH ×2 (07:22→19:41)
[2022-01-22 07:52] LABS: White Blood Count 11.8 K/mcL (4.3-11.1)
[2022-01-22 07:54] LABS: Lymphocytes # 2.6 K/mcL (0.6-4.6); Monocytes # 0.2 K/mcL (0.0-1.3)
[2022-01-22 07:55] LABS: Platelet Estimate Normal (Normal)
[2022-01-22] MEDS ORDERED: 0.9 % Sodium Chloride 1,000 ML IVC ONE (08:35)
[2022-01-22] MEDS: Insulin DETEMIR 100 UNIT/ML X5UNITS SUBQ SCH ×2 (09:30→22:38)
[2022-01-22] MEDS ORDERED: Lidocaine -MPF 1% 5 ML AMPUL INFILT ONE (10:08)
[2022-01-22] MEDS ORDERED: Norepinephrine 4 MG/254 ML IV.SOLN IVC ONE (11:18)
[2022-01-22] MEDS: Norepinephrine 4 MG/254 ML IV.SOLN IVC SCH (12:18)
[2022-01-22 12:43] LABS: Magnesium 2.8 mg/dL (1.6-2.6); Phosphorous 4.9 mg/dL (2.7-4.5)
[2022-01-22] MEDS ORDERED: *HR* Midazolam HCl 5 MG/5 ML VIAL IVP ONE (14:24)
[2022-01-22] MEDS ORDERED: *HR* Etomidate 20 MG/10 ML AMPUL IVP ONE (14:24)
[2022-01-22] MEDS ORDERED: Vancomycin 1,500 MG/265 ML IV.SOLN IVPB SCH (16:00)
[2022-01-22] MEDS: Vancomycin 1,250 MG/262.5 ML IV.SOLN IVPB SCH (16:32)
[2022-01-22] MEDS ORDERED: Clinimix 5%-20% SOLUTION 2,000 ML with MVI, adult with vitamin K 10 ML, Sodium Phosph... IV SCH (17:00)
[2022-01-22 20:07] LABS: Appearance of Body Fluid Cloudy (Clear); Volume of Body Fluid 13 mL
[2022-01-23 02:24] LABS: Basophils % 0.3 %; Eosinophils # 0.1 K/mcL (0.0-0.6); Eosinophils % 0.5 %; Hematocrit 29.7 % (37.5-50.1); Hemoglobin 9.4 g/dL (12.9-16.9); Immature Granulocytes % 0.7 % (0-4); Lymphocytes # 1.3 K/mcL (0.6-4.6); Mean Corpuscular HGB Conc 31.6 g/dL (31.6-35.5); Mean Corpuscular Hemoglobin 31.1 pg (28.0-33.3); Mean Corpuscular Volume 98.3 fL (83.0-100.0); Mean Platelet Volume 10.9 fL (9.4-12.4); Monocytes # 0.5 K/mcL (0.0-1.3); Monocytes % 4.6 %; Neutrophils # 8.8 K/mcL (1.6-8.9); Platelet Count 128 K/mcL (140-400); Red Blood Count 3.02 M/mcL (4.19-5.50); Red Cell Distribution Width 17.6 % (11.5-14.5); Segmented Neutrophils % 81.9 %; White Blood Count 10.7 K/mcL (4.3-11.1)
[2022-01-23 02:44] LABS: BUN/Creatinine Ratio 49 (6-26); Blood Urea Nitrogen 53 mg/dL (8-23); Calcium 8.1 mg/dL (8.6-10.3); Carbon Dioxide 35 mEq/L (23-29); Chloride 97 mEq/L (98-107); Glucose 221 mg/dL (70-105); Magnesium 2.7 mg/dL (1.6-2.6); Osmolality,Calculated 309 (280-300); Phosphorous 3.5 mg/dL (2.7-4.5); Potassium 2.8 mEq/L (3.5-5.1); Sodium 139 mEq/L (136-145); Triglycerides 206 mg/dL (< 150); Vancomycin,Trough 18 mcg/mL (5-10); eGFR For African Americans > 60 (> 60); eGFR For Non-African Americans > 60 (> 60)
[2022-01-23] MEDS: Norepinephrine 4 MG/254 ML IV.SOLN IVC SCH ×3 (03:42→19:34)
[2022-01-23] MEDS: Insulin LISPRO 300 UNITS/3 ML VIAL SUBQ SCH ×6 (03:43→23:44)
[2022-01-23] MEDS: Potassium Chloride 40 MEQ/200 ML BAG IVPB PRN ×5 (04:05→19:34)
[2022-01-23 04:44] LABS: ABG Base Excess 8 mEq/L (-2 to 3); ABG HCO3 33 mEq/L (21-27); ABG Oxygen Saturation 96 % (95-98); ABG PCO2 47 mmHg (35-45); ABG PH 7.46 pH Units (7.32-7.45); ABG PO2 76 mmHg (85-104); ABG TCO2 35 mEq/L (20-26); Blood Gas Modality ASSIST CONTROL; Blood Gas VT 500 cc
[2022-01-23] MEDS: Vancomycin 1,250 MG/262.5 ML IV.SOLN IVPB SCH ×2 (05:00→16:56)
[2022-01-23] MEDS: *HR* Heparin 5,000 UNIT/ML VIAL SQ SCH ×3 (05:01→23:41)
[2022-01-23] MEDS: Pantoprazole 40 MG VIAL IVP SCH ×2 (05:01→16:53)
[2022-01-23] MEDS: Artificial Tears SOLN 15 ML BOTTLE BOTH EYES SCH ×6 (05:01→23:42)
[2022-01-23] MEDS: carvediloL 6.25 MG TABLET PO SCH (07:30)
[2022-01-23] MEDS: Nicotine 21 MG PATCH.TD24 TD SCH (08:00)
[2022-01-23] MEDS: Chlorhexidine Rinse 15 ML MOUTHWASH MM SCH ×2 (08:00→19:33)
[2022-01-23] MEDS: Magnesium Oxide 400 MG TABLET PO SCH (08:01)
[2022-01-23] MEDS: Piperacillin/Tazobactam 3.375 GM in 0.9 % Sodium Chloride Mini Bag 100 ML IVPB SCH ×3 (08:01→23:41)
[2022-01-23] MEDS: Insulin DETEMIR 100 UNIT/ML X5UNITS SUBQ SCH ×3 (08:14→20:42)
[2022-01-23 11:57] LABS: Mean Corpuscular HGB Conc 33.3 g/dL (31.6-35.5)
[2022-01-23 11:59] LABS: Basophils # 0.1 K/mcL (0.0-0.2); Basophils % 0.8 %; Eosinophils # 0.1 K/mcL (0.0-0.6); Eosinophils % 0.8 %; Hematocrit 28.8 % (37.5-50.1); Hemoglobin 9.6 g/dL (12.9-16.9); Immature Granulocytes % 2.7 % (0-4); Immature Platelets 3.8 % (1.1-6.1); Lymphocytes # 1.8 K/mcL (0.6-4.6); Lymphocytes % 17.9 %; Mean Corpuscular Hemoglobin 31.6 pg (28.0-33.3); Mean Corpuscular Volume 94.7 fL (83.0-100.0); Mean Platelet Volume 11.2 fL (9.4-12.4); Monocytes # 0.7 K/mcL (0.0-1.3); Monocytes % 6.6 %; Nucleated Red Blood Cells 0.4 /100 WBC (0); Platelet Count 115 K/mcL (140-400); Red Blood Count 3.04 M/mcL (4.19-5.50); Red Cell Distribution Width 17.3 % (11.5-14.5); Segmented Neutrophils % 71.2 %; White Blood Count 10.2 K/mcL (4.3-11.1)
[2022-01-23 12:15] LABS: BUN/Creatinine Ratio 44 (6-26); Blood Urea Nitrogen 47 mg/dL (8-23); Calcium 7.9 mg/dL (8.6-10.3); Carbon Dioxide 31 mEq/L (23-29); Chloride 100 mEq/L (98-107); Glucose 200 mg/dL (70-105); Neutrophils # 7.3 K/mcL (1.6-8.9); Osmolality,Calculated 308 (280-300); Potassium 4.8 mEq/L (3.5-5.1); Sodium 140 mEq/L (136-145); eGFR For African Americans > 60 (> 60); eGFR For Non-African Americans > 60 (> 60)
[2022-01-23] MEDS ORDERED: SODIUM PHOSPHATE IVPB SCH (17:00)
[2022-01-23] MEDS ORDERED: CLINIMIX IVPB SCH (17:00)
[2022-01-23] MEDS ORDERED: [UNRECOGNIZED DRUG - OTHER] IVPB SCH (17:00)
[2022-01-23 18:26] LABS: Amorphous Sediment,Urine Few per hpf (None-Few); Bacteria,Urine Few per hpf (None-Few); Bilirubin,Urine Negative (Negative); Blood,Urine Large (Negative); Clarity,Urine Turbid (Clear); Color,Urine Yellow (Yellow); Glucose,Urine (UA) Normal (Normal); Ketones,Urine Negative (Negative); Leukocyte Esterase,Urine Large (Negative); Mucus,Urine Few per lpf (None-Few); Nitrite,Urine Negative (Negative); Protein,Urine 50 mg/dL (Neg-Trace); RBC,Urine TNTC per hpf (0-3); Specific Gravity,Urine 1.021 (1.010-1.025); Squamous Epithelial Cell,Urine Few per hpf (None-Few); Urobilinogen,Urine Normal (Normal); WBC,Urine TNTC per hpf (0-3)
[2022-01-24 03:45] LABS: Basophils % 0.5 %; Eosinophils # 0.1 K/mcL (0.0-0.6); Hematocrit 29.9 % (37.5-50.1); Hemoglobin 9.4 g/dL (12.9-16.9); Immature Granulocytes % 0.3 % (0-4); Lymphocytes # 1.1 K/mcL (0.6-4.6); Lymphocytes % 19.3 %; Mean Corpuscular HGB Conc 31.4 g/dL (31.6-35.5); Mean Corpuscular Hemoglobin 31.2 pg (28.0-33.3); Mean Corpuscular Volume 99.3 fL (83.0-100.0); Mean Platelet Volume 10.5 fL (9.4-12.4); Monocytes # 0.3 K/mcL (0.0-1.3); Monocytes % 4.8 %; Neutrophils # 4.4 K/mcL (1.6-8.9); Platelet Count 111 K/mcL (140-400); Red Blood Count 3.01 M/mcL (4.19-5.50); Red Cell Distribution Width 17.3 % (11.5-14.5); Segmented Neutrophils % 74.1 %; White Blood Count 5.9 K/mcL (4.3-11.1)
[2022-01-24 03:47] LABS: VBG Ionized Calcium 1.09 mmol/L (1.15-1.35)
[2022-01-24] MEDS: Artificial Tears SOLN 15 ML BOTTLE BOTH EYES SCH ×5 (03:47→19:41)
[2022-01-24 03:56] LABS: Magnesium 2.7 mg/dL (1.6-2.6); Phosphorous 2.8 mg/dL (2.7-4.5)
[2022-01-24] MEDS: Norepinephrine 4 MG/254 ML IV.SOLN IVC SCH ×2 (03:56→13:08)
[2022-01-24 03:58] LABS: BUN/Creatinine Ratio 41 (6-26); Blood Urea Nitrogen 33 mg/dL (8-23); Calcium 8.2 mg/dL (8.6-10.3); Carbon Dioxide 33 mEq/L (23-29); Chloride 102 mEq/L (98-107); Glucose 275 mg/dL (70-105); Osmolality,Calculated 309 (280-300); Potassium 3.4 mEq/L (3.5-5.1); Sodium 141 mEq/L (136-145); eGFR For African Americans > 60 (> 60); eGFR For Non-African Americans > 60 (> 60)
[2022-01-24 04:14] LABS: ABG Base Excess 8 mEq/L (-2 to 3); ABG HCO3 33 mEq/L (21-27); ABG Oxygen Saturation 96 % (95-98); ABG PCO2 49 mmHg (35-45); ABG PH 7.43 pH Units (7.32-7.45); ABG PO2 84 mmHg (85-104); ABG TCO2 34 mEq/L (20-26); Blood Gas Modality ASSIST CONTROL; Blood Gas VT 500 cc
[2022-01-24] MEDS: Insulin LISPRO 300 UNITS/3 ML VIAL SUBQ SCH ×5 (04:18→19:48)
[2022-01-24] MEDS ORDERED: Calcium Gluconate 1gm/50mL 1 GM/50 ML BAG IVPB PRN (04:35)
[2022-01-24] MEDS: *HR* Heparin 5,000 UNIT/ML VIAL SQ SCH ×3 (05:17→19:42)
[2022-01-24] MEDS: Pantoprazole 40 MG VIAL IVP SCH ×2 (05:17→16:20)
[2022-01-24] MEDS: Vancomycin 1,250 MG/262.5 ML IV.SOLN IVPB SCH ×2 (05:18→17:19)
[2022-01-24] MEDS: Potassium Chloride 40 MEQ/200 ML BAG IVPB PRN ×3 (05:18→22:12)
[2022-01-24] MEDS: Nicotine 21 MG PATCH.TD24 TD SCH (07:25)
[2022-01-24] MEDS: Piperacillin/Tazobactam 3.375 GM in 0.9 % Sodium Chloride Mini Bag 100 ML IVPB SCH ×2 (07:25→16:20)
[2022-01-24] MEDS: carvediloL 6.25 MG TABLET PO SCH ×2 (07:26→19:41)
[2022-01-24] MEDS: Chlorhexidine Rinse 15 ML MOUTHWASH MM SCH ×2 (07:26→19:41)
[2022-01-24] MEDS: Magnesium Oxide 400 MG TABLET PO SCH ×2 (07:27→19:54)
[2022-01-24] MEDS: Insulin DETEMIR 100 UNIT/ML X5UNITS SUBQ SCH ×2 (07:42→19:42)
[2022-01-24 13:36] LABS: BUN/Creatinine Ratio 41 (6-26); Blood Urea Nitrogen 29 mg/dL (8-23); Calcium 8.4 mg/dL (8.6-10.3); Carbon Dioxide 32 mEq/L (23-29); Chloride 105 mEq/L (98-107); Glucose 155 mg/dL (70-105); Magnesium 2.7 mg/dL (1.6-2.6); Osmolality,Calculated 305 (280-300); Potassium 3.4 mEq/L (3.5-5.1); Sodium 143 mEq/L (136-145); eGFR For African Americans > 60 (> 60); eGFR For Non-African Americans > 60 (> 60)
[2022-01-24 14:51] LABS: VBG Ionized Calcium 1.14 mmol/L (1.15-1.35)
[2022-01-24 15:17] LABS: INR 1.1
[2022-01-24] MEDS ORDERED: CLINIMIX IVPB SCH (17:00)
[2022-01-24] MEDS ORDERED: SODIUM PHOSPHATE IVPB SCH (17:00)
[2022-01-24] MEDS ORDERED: [UNRECOGNIZED DRUG - OTHER] IVPB SCH (17:00)
[2022-01-25] MEDS: Artificial Tears SOLN 15 ML BOTTLE BOTH EYES SCH ×7 (00:03→23:50)
[2022-01-25] MEDS: Piperacillin/Tazobactam 3.375 GM in 0.9 % Sodium Chloride Mini Bag 100 ML IVPB SCH ×4 (00:04→23:07)
[2022-01-25] MEDS: Insulin LISPRO 300 UNITS/3 ML VIAL SUBQ SCH ×7 (00:06→23:25)
[2022-01-25 04:17] LABS: ABG Base Excess 5 mEq/L (-2 to 3); ABG HCO3 30 mEq/L (21-27); ABG Oxygen Saturation 95 % (95-98); ABG PCO2 46 mmHg (35-45); ABG PH 7.42 pH Units (7.32-7.45); ABG PO2 78 mmHg (85-104); ABG TCO2 31 mEq/L (20-26); Blood Gas Modality AF; Blood Gas VT 500 cc
[2022-01-25 04:23] LABS: Basophils % 0.4 %; Eosinophils # 0.1 K/mcL (0.0-0.6); Eosinophils % 1.2 %; Hematocrit 27.5 % (37.5-50.1); Hemoglobin 8.5 g/dL (12.9-16.9); Immature Granulocytes % 0.6 % (0-4); Lymphocytes # 1.3 K/mcL (0.6-4.6); Lymphocytes % 25.4 %; Mean Corpuscular HGB Conc 30.9 g/dL (31.6-35.5); Mean Corpuscular Hemoglobin 30.7 pg (28.0-33.3); Mean Corpuscular Volume 99.3 fL (83.0-100.0); Mean Platelet Volume 10.2 fL (9.4-12.4); Monocytes # 0.3 K/mcL (0.0-1.3); Monocytes % 6.3 %; Neutrophils # 3.4 K/mcL (1.6-8.9); Platelet Count 102 K/mcL (140-400); Red Blood Count 2.77 M/mcL (4.19-5.50); Red Cell Distribution Width 17.6 % (11.5-14.5); Segmented Neutrophils % 66.1 %; White Blood Count 5.2 K/mcL (4.3-11.1)
[2022-01-25] MEDS: *HR* Heparin 5,000 UNIT/ML VIAL SQ SCH ×3 (05:22→21:16)
[2022-01-25] MEDS: Pantoprazole 40 MG VIAL IVP SCH ×2 (05:23→16:54)
[2022-01-25 05:29] LABS: BUN/Creatinine Ratio 40 (6-26); Blood Urea Nitrogen 27 mg/dL (8-23); Calcium 8.1 mg/dL (8.6-10.3); Carbon Dioxide 30 mEq/L (23-29); Chloride 107 mEq/L (98-107); Glucose 181 mg/dL (70-105); Magnesium 2.6 mg/dL (1.6-2.6); Osmolality,Calculated 304 (280-300); Phosphorous 3.2 mg/dL (2.7-4.5); Potassium 3.8 mEq/L (3.5-5.1); Sodium 142 mEq/L (136-145); Vancomycin,Trough 18 mcg/mL (5-10); eGFR For African Americans > 60 (> 60); eGFR For Non-African Americans > 60 (> 60)
[2022-01-25] MEDS: Vancomycin 1,250 MG/262.5 ML IV.SOLN IVPB SCH ×2 (06:03→16:06)
[2022-01-25] MEDS: Potassium Chloride 40 MEQ/200 ML BAG IVPB PRN (06:40)
[2022-01-25] MEDS ORDERED: Ondansetron 4 MG/2 ML VIAL ONE (07:47)
[2022-01-25] MEDS ORDERED: *HR* Rocuronium Bromide 50 MG/5 ML VIAL ONE ×4 (07:47→13:15)
[2022-01-25] MEDS ORDERED: Lidocaine -MPF 2% 2 ML VIAL ONE (07:47)
[2022-01-25] MEDS ORDERED: *HR* FentaNYL (PF) 100 MCG/2 ML VIAL ONE (07:48)
[2022-01-25] MEDS ORDERED: *HR* HYDROMORPHONE 2 MG/ML VIAL ONE (07:49)
[2022-01-25] MEDS ORDERED: *HR* Propofol 200 MG/20 ML VIAL IVP ONE (07:49)
[2022-01-25] MEDS: Chlorhexidine Rinse 15 ML MOUTHWASH MM SCH ×2 (08:05→19:36)
[2022-01-25] MEDS: carvediloL 6.25 MG TABLET PO SCH ×2 (08:05→10:08)
[2022-01-25] MEDS: Magnesium Oxide 400 MG TABLET PO SCH ×2 (08:05→10:08)
[2022-01-25] MEDS: Insulin DETEMIR 100 UNIT/ML X5UNITS SUBQ SCH ×2 (08:05→21:16)
[2022-01-25] MEDS: Nicotine 21 MG PATCH.TD24 TD SCH (08:06)
[2022-01-25] MEDS ORDERED: Ketamine HCL *QUVA* 50mg (1mL) SYRINGE ONE (08:43)
[2022-01-25] MEDS ORDERED: Albumin Human 5% 25.0 GM/500 ML IV.SOLN ONE (09:59)
[2022-01-25] MEDS ORDERED: *HR* Phenylephrine 10 MG/ML VIAL ONE ×2 (10:22→13:08)
[2022-01-25] MEDS ORDERED: *HR* Metoprolol 5 MG/5 ML VIAL IVP PRN (11:04)
[2022-01-25] MEDS ORDERED: *HR* Midazolam HCl 2 MG/2 ML VIAL ONE (14:22)
[2022-01-25] MEDS ORDERED: *HR* Alteplase (Cathflo) 2 MG VIAL IVP ONE ×2 (14:53→15:00)
[2022-01-25] MEDS: Clinimix E 5%-15% SOLUTION 2,000 ML with MVI, adult with vitamin K 10 ML IVC SCH (16:04)
[2022-01-26] MEDS: Artificial Tears SOLN 15 ML BOTTLE BOTH EYES SCH ×6 (03:25→23:14)
[2022-01-26] MEDS: Insulin LISPRO 300 UNITS/3 ML VIAL SUBQ SCH ×6 (03:27→23:37)
[2022-01-26 03:44] LABS: VBG Ionized Calcium 1.09 mmol/L (1.15-1.35)
[2022-01-26 03:56] LABS: Hematocrit 27.2 % (37.5-50.1); Lymphocytes % 22.7 %
[2022-01-26 03:58] LABS: Basophils % 0.3 %; Eosinophils % 0.3 %; Hemoglobin 8.3 g/dL (12.9-16.9); Immature Granulocytes % 0.8 % (0-4); Immature Platelets 3.9 % (1.1-6.1); Lymphocytes # 1.5 K/mcL (0.6-4.6); Mean Corpuscular HGB Conc 30.5 g/dL (31.6-35.5); Mean Corpuscular Hemoglobin 30.2 pg (28.0-33.3); Mean Corpuscular Volume 98.9 fL (83.0-100.0); Monocytes # 0.4 K/mcL (0.0-1.3); Neutrophils # 4.7 K/mcL (1.6-8.9); Nucleated Red Blood Cells 0.3 /100 WBC (0); Platelet Count 96 K/mcL (140-400); Red Blood Count 2.75 M/mcL (4.19-5.50); Red Cell Distribution Width 18.9 % (11.5-14.5); Segmented Neutrophils % 69.9 %; White Blood Count 6.7 K/mcL (4.3-11.1)
[2022-01-26 04:21] LABS: ABG Base Excess 3 mEq/L (-2 to 3); ABG HCO3 28 mEq/L (21-27); ABG Oxygen Saturation 97 % (95-98); ABG PCO2 44 mmHg (35-45); ABG PH 7.41 pH Units (7.32-7.45); ABG PO2 88 mmHg (85-104); ABG TCO2 29 mEq/L (20-26); Blood Gas Modality ASSIST CONTROL; Blood Gas VT 500 cc
[2022-01-26] MEDS ORDERED: Calcium Gluconate 1gm/50mL 1 GM/50 ML BAG IVPB ONE (04:59)
[2022-01-26] MEDS: *HR* Heparin 5,000 UNIT/ML VIAL SQ SCH ×3 (05:06→22:09)
[2022-01-26] MEDS: Pantoprazole 40 MG VIAL IVP SCH ×2 (05:06→17:01)
[2022-01-26] MEDS: Vancomycin 1,250 MG/262.5 ML IV.SOLN IVPB SCH ×2 (05:07→16:04)
[2022-01-26 05:41] LABS: Alanine Aminotransferase 26 Units/L (7-52); Albumin 2.3 g/dL (3.5-5.7); Albumin/Globulin Ratio 1.2 (1.1-2.2); Alkaline Phosphatase 60 Units/L (34-104); Aspartate Amino Transferase 22 Units/L (13-39); BUN/Creatinine Ratio 39 (6-26); Bilirubin,Total 0.8 mg/dL (0.3-1.0); Blood Urea Nitrogen 28 mg/dL (8-23); Calcium 7.7 mg/dL (8.6-10.3); Carbon Dioxide 27 mEq/L (23-29); Chloride 107 mEq/L (98-107); Globulin 1.9 g/dL (2.4-3.5); Glucose 287 mg/dL (70-105); Magnesium 2.5 mg/dL (1.6-2.6); Osmolality,Calculated 306 (280-300); Phosphorous 3.9 mg/dL (2.7-4.5); Potassium 4.8 mEq/L (3.5-5.1); Sodium 140 mEq/L (136-145); Total Protein 4.2 g/dL (6.4-8.9); eGFR For African Americans > 60 (> 60); eGFR For Non-African Americans > 60 (> 60)
[2022-01-26] MEDS ORDERED: *HR* FentaNYL (PF) 100 MCG/2 ML VIAL IVP PRN (07:48)
[2022-01-26] MEDS: Piperacillin/Tazobactam 3.375 GM in 0.9 % Sodium Chloride Mini Bag 100 ML IVPB SCH ×3 (08:06→23:14)
[2022-01-26] MEDS: Chlorhexidine Rinse 15 ML MOUTHWASH MM SCH ×3 (08:06→19:33)
[2022-01-26] MEDS: Insulin DETEMIR 100 UNIT/ML X5UNITS SUBQ SCH ×2 (08:08→22:48)
[2022-01-26] MEDS: Norepinephrine 4 MG/254 ML IV.SOLN IVC SCH (08:24)
[2022-01-26] MEDS ORDERED: Ipratropium/Albuterol Neb 3 ML IH PRN (08:27)
[2022-01-26] MEDS ORDERED: *HR* Alteplase (Cathflo) 2 MG VIAL IVP PRN (08:27)
[2022-01-26] MEDS ORDERED: *HR* Alteplase (Cathflo) 2 MG VIAL IVP ONE (08:27)
[2022-01-26] MEDS ORDERED: Naloxone 0.4 MG/ML INJ IVP PRN (08:27)
[2022-01-26] MEDS ORDERED: Chloraseptic Spray 177 ML BOTTLE MM PRN (08:27)
[2022-01-26] MEDS ORDERED: Clinimix E 5%-15% SOLUTION 2,000 ML with MVI, adult with vitamin K 10 ML IVC SCH (08:27)
[2022-01-26] MEDS ORDERED: Artificial Tears SOLN 15 ML BOTTLE BOTH EYES PRN (08:27)
[2022-01-26] MEDS ORDERED: D10% in Water 500 ML IVC PRN (08:27)
[2022-01-26] MEDS ORDERED: D5% in Water 1,000 ML IVC PRN (08:27)
[2022-01-26] MEDS ORDERED: Dextrose 4 GM Chewable Tablets PO PRN ×2 (08:27)
[2022-01-26] MEDS ORDERED: Ondansetron ODT 4 MG TAB.RAPDIS SL PRN (08:27)
[2022-01-26] MEDS ORDERED: Calcium Gluconate 1gm/50mL 1 GM/50 ML BAG IVPB PRN (08:27)
[2022-01-26] MEDS ORDERED: Saliva Stimulant 44.3ml BOTTLE PO PRN (08:27)
[2022-01-26] MEDS ORDERED: *HR* Metoprolol 5 MG/5 ML VIAL IVP PRN (08:27)
[2022-01-26] MEDS ORDERED: *HR* Dextrose 50 % in Water (Syg) 50 ML SYRINGE IVP PRN (08:27)
[2022-01-26] MEDS ORDERED: Insulin DETEMIR 100 UNIT/ML X5UNITS SUBQ SCH (09:00)
[2022-01-26] MEDS: FentaNYL (PF) 1,000 MCG/100 ML IV.SOLN IVC SCH ×2 (10:00→17:00)
[2022-01-26] MEDS: Nicotine 21 MG PATCH.TD24 TD SCH (15:00)
[2022-01-26] MEDS: Clinimix E 5%-15% SOLUTION 2,000 ML with MVI, adult with vitamin K 10 ML IVC SCH (16:06)
[2022-01-26 16:20] LABS: VBG Ionized Calcium 1.06 mmol/L (1.15-1.35)
[2022-01-26] MEDS ORDERED: AMINO ACIDS 10% IVC SCH (17:00)
[2022-01-26] MEDS ORDERED: CLINIMIX E IVC SCH (17:00)
[2022-01-27 03:47] LABS: Basophils % 0.5 %
[2022-01-27 03:49] LABS: Eosinophils # 0.1 K/mcL (0.0-0.6); Eosinophils % 1.6 %; Hematocrit 22.8 % (37.5-50.1); Immature Granulocytes % 1.2 % (0-4); Immature Platelets 4.1 % (1.1-6.1); Lymphocytes # 1.9 K/mcL (0.6-4.6); Lymphocytes % 29.9 %; Mean Corpuscular HGB Conc 30.7 g/dL (31.6-35.5); Mean Corpuscular Hemoglobin 30.7 pg (28.0-33.3); Mean Platelet Volume 11.1 fL (9.4-12.4); Monocytes # 0.5 K/mcL (0.0-1.3); Monocytes % 8.1 %; Neutrophils # 3.8 K/mcL (1.6-8.9); Nucleated Red Blood Cells 0.3 /100 WBC (0); Platelet Count 100 K/mcL (140-400); Red Blood Count 2.28 M/mcL (4.19-5.50); Red Cell Distribution Width 18.3 % (11.5-14.5); Segmented Neutrophils % 58.7 %; White Blood Count 6.4 K/mcL (4.3-11.1)
[2022-01-27] MEDS: Insulin LISPRO 300 UNITS/3 ML VIAL SUBQ SCH ×5 (03:54→20:18)
[2022-01-27] MEDS: Artificial Tears SOLN 15 ML BOTTLE BOTH EYES SCH ×5 (03:54→21:38)
[2022-01-27 04:06] LABS: BUN/Creatinine Ratio 38 (6-26); Blood Urea Nitrogen 27 mg/dL (8-23); Calcium 7.6 mg/dL (8.6-10.3); Carbon Dioxide 30 mEq/L (23-29); Chloride 110 mEq/L (98-107); Glucose 182 mg/dL (70-105); Magnesium 2.3 mg/dL (1.6-2.6); Osmolality,Calculated 304 (280-300); Phosphorous 4.6 mg/dL (2.7-4.5); Potassium 4.4 mEq/L (3.5-5.1); Sodium 142 mEq/L (136-145); eGFR For African Americans > 60 (> 60); eGFR For Non-African Americans > 60 (> 60)
[2022-01-27 04:15] LABS: VBG Ionized Calcium 1.15 mmol/L (1.15-1.35)
[2022-01-27 04:19] LABS: ABG Base Excess 3 mEq/L (-2 to 3); ABG HCO3 29 mEq/L (21-27); ABG Oxygen Saturation 91 % (95-98); ABG PCO2 54 mmHg (35-45); ABG PH 7.34 pH Units (7.32-7.45); ABG PO2 66 mmHg (85-104); ABG TCO2 31 mEq/L (20-26); Blood Gas Modality AF; Blood Gas VT 450 cc
[2022-01-27] MEDS: *HR* Heparin 5,000 UNIT/ML VIAL SQ SCH ×3 (04:52→21:38)
[2022-01-27] MEDS: Pantoprazole 40 MG VIAL IVP SCH ×2 (04:53→17:30)
[2022-01-27] MEDS: Vancomycin 1,250 MG/262.5 ML IV.SOLN IVPB SCH (04:53)
[2022-01-27] MEDS: FentaNYL (PF) 1,000 MCG/100 ML IV.SOLN IVC SCH ×4 (05:22→16:55)
[2022-01-27] MEDS: Piperacillin/Tazobactam 3.375 GM in 0.9 % Sodium Chloride Mini Bag 100 ML IVPB SCH (07:51)
[2022-01-27] MEDS: Chlorhexidine Rinse 15 ML MOUTHWASH MM SCH ×2 (07:52→21:38)
[2022-01-27] MEDS: Norepinephrine 4 MG/254 ML IV.SOLN IVC SCH (09:46)
[2022-01-27] MEDS: Insulin DETEMIR 100 UNIT/ML X5UNITS SUBQ SCH ×2 (12:00→21:44)
[2022-01-27] MEDS: Ampicillin/Sulbactam 3,000 MG in 0.9 % Sodium Chloride Mini Bag 100 ML IVPB SCH ×3 (12:05→23:55)
[2022-01-27 15:20] LABS: Hematocrit 21.3 % (37.5-50.1); Hemoglobin 6.4 g/dL (12.9-16.9)
[2022-01-27] MEDS ORDERED: Clinimix 5%-20% SOLUTION 2,000 ML, Amino Acids 10% 200 ML with MVI, adult with vitami... IV SCH (17:00)
[2022-01-27] MEDS ORDERED: Clinimix E 5%-15% SOLUTION 2,000 ML, Amino Acids 10% 200 ML with MVI, adult with vita... IVC SCH (17:00)
[2022-01-28] MEDS: Artificial Tears SOLN 15 ML BOTTLE BOTH EYES SCH ×6 (00:16→19:41)
[2022-01-28] MEDS: Insulin LISPRO 300 UNITS/3 ML VIAL SUBQ SCH ×6 (00:47→19:50)
[2022-01-28] MEDS: FentaNYL (PF) 1,000 MCG/100 ML IV.SOLN IVC SCH ×4 (03:14→20:33)
[2022-01-28 05:26] LABS: ABG Base Excess 3 mEq/L (-2 to 3); ABG HCO3 29 mEq/L (21-27); ABG Oxygen Saturation 90 % (95-98); ABG PCO2 55 mmHg (35-45); ABG PH 7.34 pH Units (7.32-7.45); ABG PO2 64 mmHg (85-104); ABG TCO2 31 mEq/L (20-26); Blood Gas Modality AF; Blood Gas VT 450 cc
[2022-01-28 05:40] LABS: VBG Ionized Calcium 1.21 mmol/L (1.15-1.35)
[2022-01-28 05:45] LABS: Hemoglobin 6.4 g/dL (12.9-16.9)
[2022-01-28 05:47] LABS: Hematocrit 21.4 % (37.5-50.1); Immature Platelets 4.6 % (1.1-6.1); Mean Corpuscular HGB Conc 29.9 g/dL (31.6-35.5); Mean Corpuscular Hemoglobin 30.5 pg (28.0-33.3); Mean Corpuscular Volume 101.9 fL (83.0-100.0); Mean Platelet Volume 11.1 fL (9.4-12.4); Red Blood Count 2.1 M/mcL (4.19-5.50); Red Cell Distribution Width 18.1 % (11.5-14.5); White Blood Count 4.1 K/mcL (4.3-11.1)
[2022-01-28 05:58] LABS: Alanine Aminotransferase 38 Units/L (7-52); Albumin/Globulin Ratio 0.8 (1.1-2.2); Alkaline Phosphatase 64 Units/L (34-104); Aspartate Amino Transferase 20 Units/L (13-39); BUN/Creatinine Ratio 38 (6-26); Bilirubin,Total 0.6 mg/dL (0.3-1.0); Blood Urea Nitrogen 24 mg/dL (8-23); Calcium 7.8 mg/dL (8.6-10.3); Carbon Dioxide 31 mEq/L (23-29); Chloride 109 mEq/L (98-107); Globulin 2.5 g/dL (2.4-3.5); Glucose 321 mg/dL (70-105); Magnesium 2.4 mg/dL (1.6-2.6); Osmolality,Calculated 308 (280-300); Phosphorous 3.5 mg/dL (2.7-4.5); Potassium 4.9 mEq/L (3.5-5.1); Sodium 141 mEq/L (136-145); Total Protein 4.5 g/dL (6.4-8.9); eGFR For African Americans > 60 (> 60); eGFR For Non-African Americans > 60 (> 60)
[2022-01-28] MEDS: Norepinephrine 4 MG/254 ML IV.SOLN IVC SCH ×2 (06:23→11:03)
[2022-01-28] MEDS: Pantoprazole 40 MG VIAL IVP SCH ×2 (06:26→16:54)
[2022-01-28] MEDS: Ampicillin/Sulbactam 3,000 MG in 0.9 % Sodium Chloride Mini Bag 100 ML IVPB SCH ×3 (06:26→16:53)
[2022-01-28] MEDS: *HR* Heparin 5,000 UNIT/ML VIAL SQ SCH ×3 (06:33→20:24)
[2022-01-28] MEDS: Chlorhexidine Rinse 15 ML MOUTHWASH MM SCH ×2 (11:03→20:23)
[2022-01-28] MEDS: Insulin DETEMIR 100 UNIT/ML X5UNITS SUBQ SCH ×2 (11:04→20:43)
[2022-01-28] MEDS: Dexmedetomidine HCl 400 MCG/100 ML MLS IVC SCH (13:44)
[2022-01-28] MEDS ORDERED: Acetaminophen IV 1,000 MG/100 ML BAG IVPB ONE (16:00)
[2022-01-28] MEDS ORDERED: SODIUM ACETATE IV SCH (17:00)
[2022-01-28] MEDS ORDERED: AMINO ACIDS 10% IV SCH (17:00)
[2022-01-28] MEDS ORDERED: CLINIMIX IV SCH (17:00)
[2022-01-28] MEDS ORDERED: [UNRECOGNIZED DRUG - OTHER] IV SCH (17:00)
[2022-01-28] MEDS ORDERED: 0.9 % Sodium Chloride 1,000 ML ONE (17:27)
[2022-01-29] MEDS: Artificial Tears SOLN 15 ML BOTTLE BOTH EYES SCH ×6 (00:13→19:57)
[2022-01-29] MEDS: Insulin LISPRO 300 UNITS/3 ML VIAL SUBQ SCH ×6 (00:15→19:58)
[2022-01-29] MEDS: Ampicillin/Sulbactam 3,000 MG in 0.9 % Sodium Chloride Mini Bag 100 ML IVPB SCH ×3 (00:24→11:02)
[2022-01-29 04:20] LABS: VBG Ionized Calcium 1.24 mmol/L (1.15-1.35)
[2022-01-29 04:21] LABS: Basophils % 0.5 %; Mean Corpuscular Volume 98.8 fL (83.0-100.0); Red Cell Distribution Width 19.1 % (11.5-14.5); Segmented Neutrophils % 58.1 %
[2022-01-29 04:23] LABS: Eosinophils # 0.1 K/mcL (0.0-0.6); Eosinophils % 1.7 %; Hematocrit 25.7 % (37.5-50.1); Hemoglobin 7.7 g/dL (12.9-16.9); Immature Granulocytes % 2.2 % (0-4); Immature Platelets 6.4 % (1.1-6.1); Lymphocytes # 1.1 K/mcL (0.6-4.6); Lymphocytes % 28.3 %; Mean Corpuscular Hemoglobin 29.6 pg (28.0-33.3); Mean Platelet Volume 11.1 fL (9.4-12.4); Monocytes # 0.4 K/mcL (0.0-1.3); Monocytes % 9.2 %; Neutrophils # 2.3 K/mcL (1.6-8.9); Nucleated Red Blood Cells 0.5 /100 WBC (0)
[2022-01-29 04:30] LABS: ABG Base Excess 4 mEq/L (-2 to 3); ABG HCO3 30 mEq/L (21-27); ABG Oxygen Saturation 93 % (95-98); ABG PCO2 53 mmHg (35-45); ABG PH 7.36 pH Units (7.32-7.45); ABG PO2 73 mmHg (85-104); ABG TCO2 31 mEq/L (20-26); Blood Gas VT 450 cc
[2022-01-29 04:38] LABS: Alanine Aminotransferase 36 Units/L (7-52); Albumin/Globulin Ratio 0.7 (1.1-2.2); Alkaline Phosphatase 84 Units/L (34-104); Aspartate Amino Transferase 18 Units/L (13-39); BUN/Creatinine Ratio 37 (6-26); Bilirubin,Total 0.9 mg/dL (0.3-1.0); Blood Urea Nitrogen 24 mg/dL (8-23); Carbon Dioxide 31 mEq/L (23-29); Chloride 109 mEq/L (98-107); Globulin 2.7 g/dL (2.4-3.5); Glucose 165 mg/dL (70-105); Magnesium 2.2 mg/dL (1.6-2.6); Osmolality,Calculated 302 (280-300); Phosphorous 2.8 mg/dL (2.7-4.5); Potassium 4.2 mEq/L (3.5-5.1); Sodium 142 mEq/L (136-145); Total Protein 4.7 g/dL (6.4-8.9); eGFR For African Americans > 60 (> 60); eGFR For Non-African Americans > 60 (> 60)
[2022-01-29 04:42] LABS: Platelet Count 89 K/mcL (140-400)
[2022-01-29] MEDS: FentaNYL (PF) 1,000 MCG/100 ML IV.SOLN IVC SCH (04:45)
[2022-01-29] MEDS: *HR* Heparin 5,000 UNIT/ML VIAL SQ SCH ×3 (05:07→19:59)
[2022-01-29] MEDS: Pantoprazole 40 MG VIAL IVP SCH (05:41)
[2022-01-29] MEDS: Chlorhexidine Rinse 15 ML MOUTHWASH MM SCH ×2 (07:57→20:13)
[2022-01-29] MEDS: Insulin DETEMIR 100 UNIT/ML X5UNITS SUBQ SCH ×2 (08:40→19:59)
[2022-01-29] MEDS: levoFLOXacin 750 MG/150 ML 750 MG/150 ML BAG IVPB SCH (15:34)
[2022-01-29] MEDS ORDERED: Clinimix 5%-20% SOLUTION 2,000 ML with Amino Acids 10% 200 ML, MVI, adult with vitami... IV SCH (17:00)
[2022-01-29] MEDS: Ringers Solution, Lactated 1,000 ML IVC SCH (18:50)
[2022-01-30] MEDS: Insulin LISPRO 300 UNITS/3 ML VIAL SUBQ SCH ×6 (00:32→20:44)
[2022-01-30] MEDS: Artificial Tears SOLN 15 ML BOTTLE BOTH EYES SCH ×6 (00:32→20:46)
[2022-01-30] MEDS: Ringers Solution, Lactated 1,000 ML IVC SCH ×3 (03:37→21:49)
[2022-01-30 04:30] LABS: ABG Base Excess 3 mEq/L (-2 to 3); ABG HCO3 29 mEq/L (21-27); ABG Oxygen Saturation 98 % (95-98); ABG PCO2 46 mmHg (35-45); ABG PO2 103 mmHg (85-104); ABG TCO2 30 mEq/L (20-26); Blood Gas VT 450 cc
[2022-01-30 05:29] LABS: Alanine Aminotransferase 33 Units/L (7-52); Albumin 2.2 g/dL (3.5-5.7); Albumin/Globulin Ratio 0.8 (1.1-2.2); Alkaline Phosphatase 91 Units/L (34-104); Aspartate Amino Transferase 16 Units/L (13-39); BUN/Creatinine Ratio 40 (6-26); Bilirubin,Total 0.7 mg/dL (0.3-1.0); Blood Urea Nitrogen 25 mg/dL (8-23); Calcium 8.3 mg/dL (8.6-10.3); Carbon Dioxide 30 mEq/L (23-29); Chloride 107 mEq/L (98-107); Globulin 2.7 g/dL (2.4-3.5); Glucose 292 mg/dL (70-105); Magnesium 1.9 mg/dL (1.6-2.6); Osmolality,Calculated 303 (280-300); Phosphorous 2.5 mg/dL (2.7-4.5); Potassium 4.1 mEq/L (3.5-5.1); Sodium 139 mEq/L (136-145); Total Protein 4.9 g/dL (6.4-8.9); eGFR For African Americans > 60 (> 60); eGFR For Non-African Americans > 60 (> 60)
[2022-01-30] MEDS: *HR* Heparin 5,000 UNIT/ML VIAL SQ SCH ×3 (06:13→20:53)
[2022-01-30 07:26] LABS: Basophils % 0.2 %; Eosinophils # 0.1 K/mcL (0.0-0.6); Eosinophils % 1.2 %; Hematocrit 26.9 % (37.5-50.1); Hemoglobin 8.1 g/dL (12.9-16.9); Immature Granulocytes % 1.2 % (0-4); Lymphocytes # 1.3 K/mcL (0.6-4.6); Mean Corpuscular HGB Conc 30.1 g/dL (31.6-35.5); Mean Corpuscular Volume 99.6 fL (83.0-100.0); Mean Platelet Volume 11.4 fL (9.4-12.4); Monocytes # 0.4 K/mcL (0.0-1.3); Monocytes % 8.2 %; Neutrophils # 2.5 K/mcL (1.6-8.9); Platelet Count 101 K/mcL (140-400); Red Cell Distribution Width 18.4 % (11.5-14.5); Segmented Neutrophils % 59.2 %; White Blood Count 4.3 K/mcL (4.3-11.1)
[2022-01-30] MEDS: Chlorhexidine Rinse 15 ML MOUTHWASH MM SCH ×2 (07:36→20:52)
[2022-01-30] MEDS: Pantoprazole 40 MG VIAL IVP SCH (07:36)
[2022-01-30] MEDS: Insulin DETEMIR 100 UNIT/ML X5UNITS SUBQ SCH (07:37)
[2022-01-30] MEDS: levoFLOXacin 750 MG/150 ML 750 MG/150 ML BAG IVPB SCH (13:26)
[2022-01-30] MEDS: Albumin 25% 12.5gm/50mL 12.5 GM/50 ML IV.SOLN IVPB SCH (15:45)
[2022-01-30] MEDS ORDERED: CLINIMIX IV SCH (17:00)
[2022-01-30] MEDS ORDERED: AMINO ACIDS IV SCH (17:00)
[2022-01-30] MEDS ORDERED: CLINIMIX E IVC SCH (17:00)
[2022-01-30] MEDS ORDERED: AMINO ACIDS 10% IVC SCH (17:00)
[2022-01-30] MEDS ORDERED: [UNRECOGNIZED DRUG - OTHER] IV SCH (17:00)
[2022-01-30] MEDS ORDERED: Insulin DETEMIR 100 UNIT/ML X5UNITS SUBQ SCH (21:00)
[2022-01-31] MEDS: Artificial Tears SOLN 15 ML BOTTLE BOTH EYES SCH ×6 (00:18→20:08)
[2022-01-31] MEDS: Insulin LISPRO 300 UNITS/3 ML VIAL SUBQ SCH ×2 (00:20→03:48)
[2022-01-31] MEDS: Albumin 25% 12.5gm/50mL 12.5 GM/50 ML IV.SOLN IVPB SCH ×2 (01:11→08:35)
[2022-01-31 03:47] LABS: Basophils % 0.4 %; Eosinophils % 0.6 %; Hematocrit 27.9 % (37.5-50.1); Hemoglobin 8.6 g/dL (12.9-16.9); Immature Granulocytes % 0.7 % (0-4); Lymphocytes # 1.5 K/mcL (0.6-4.6); Lymphocytes % 26.7 %; Mean Corpuscular HGB Conc 30.8 g/dL (31.6-35.5); Mean Corpuscular Hemoglobin 30.5 pg (28.0-33.3); Mean Corpuscular Volume 98.9 fL (83.0-100.0); Mean Platelet Volume 11.3 fL (9.4-12.4); Monocytes # 0.4 K/mcL (0.0-1.3); Monocytes % 7.2 %; Neutrophils # 3.5 K/mcL (1.6-8.9); Platelet Count 103 K/mcL (140-400); Red Blood Count 2.82 M/mcL (4.19-5.50); Segmented Neutrophils % 64.4 %; White Blood Count 5.4 K/mcL (4.3-11.1)
[2022-01-31 04:08] LABS: Alanine Aminotransferase 50 Units/L (7-52); Albumin 2.4 g/dL (3.5-5.7); Albumin/Globulin Ratio 0.8 (1.1-2.2); Alkaline Phosphatase 99 Units/L (34-104); Aspartate Amino Transferase 37 Units/L (13-39); BUN/Creatinine Ratio 49 (6-26); Bilirubin,Total 0.7 mg/dL (0.3-1.0); Blood Urea Nitrogen 38 mg/dL (8-23); Calcium 8.4 mg/dL (8.6-10.3); Carbon Dioxide 27 mEq/L (23-29); Chloride 106 mEq/L (98-107); Glucose 345 mg/dL (70-105); Magnesium 2.1 mg/dL (1.6-2.6); Osmolality,Calculated 309 (280-300); Phosphorous 2.9 mg/dL (2.7-4.5); Potassium 4.3 mEq/L (3.5-5.1); Sodium 138 mEq/L (136-145); Total Protein 5.4 g/dL (6.4-8.9); eGFR For African Americans > 60 (> 60); eGFR For Non-African Americans > 60 (> 60)
[2022-01-31 04:52] LABS: ABG Base Excess 2 mEq/L (-2 to 3); ABG HCO3 26 mEq/L (21-27); ABG Oxygen Saturation 95 % (95-98); ABG PCO2 41 mmHg (35-45); ABG PH 7.42 pH Units (7.32-7.45); ABG PO2 75 mmHg (85-104); ABG TCO2 28 mEq/L (20-26); Blood Gas VT 450 cc
[2022-01-31] MEDS: *HR* Heparin 5,000 UNIT/ML VIAL SQ SCH ×3 (05:19→20:07)
[2022-01-31] MEDS: FentaNYL (PF) 1,000 MCG/100 ML IV.SOLN IVC SCH (06:31)
[2022-01-31] MEDS: Ringers Solution, Lactated 1,000 ML IVC SCH ×3 (06:33→16:04)
[2022-01-31] MEDS: Dexmedetomidine HCl 400 MCG/100 ML MLS IVC SCH ×2 (08:08→12:34)
[2022-01-31] MEDS: Norepinephrine 4 MG/254 ML IV.SOLN IVC SCH ×2 (08:09→08:26)
[2022-01-31] MEDS: Chlorhexidine Rinse 15 ML MOUTHWASH MM SCH ×2 (08:29→20:07)
[2022-01-31] MEDS: Pantoprazole 40 MG VIAL IVP SCH (08:30)
[2022-01-31] MEDS: levoFLOXacin 750 MG/150 ML 750 MG/150 ML BAG IVPB SCH (13:21)
[2022-01-31] MEDS ORDERED: AMINO ACIDS IV SCH (17:00)
[2022-01-31] MEDS ORDERED: CLINIMIX E IVC SCH (17:00)
[2022-01-31] MEDS ORDERED: [UNRECOGNIZED DRUG - OTHER] IV SCH (17:00)
[2022-01-31] MEDS ORDERED: CLINIMIX IV SCH (17:00)
[2022-01-31] MEDS ORDERED: AMINO ACIDS 10% IVC SCH (17:00)
[2022-02-01] MEDS: Artificial Tears SOLN 15 ML BOTTLE BOTH EYES SCH ×6 (00:24→20:48)
[2022-02-01 03:19] LABS: Basophils % 0.4 %; Eosinophils # 0.1 K/mcL (0.0-0.6); Eosinophils % 1.2 %; Hematocrit 26.5 % (37.5-50.1); Hemoglobin 8.1 g/dL (12.9-16.9); Immature Granulocytes % 0.4 % (0-4); Lymphocytes # 1.2 K/mcL (0.6-4.6); Lymphocytes % 24.4 %; Mean Corpuscular HGB Conc 30.6 g/dL (31.6-35.5); Mean Corpuscular Volume 98.1 fL (83.0-100.0); Mean Platelet Volume 11.2 fL (9.4-12.4); Monocytes # 0.3 K/mcL (0.0-1.3); Monocytes % 5.6 %; Neutrophils # 3.4 K/mcL (1.6-8.9); Platelet Count 104 K/mcL (140-400); Red Cell Distribution Width 18.2 % (11.5-14.5)
[2022-02-01 03:39] LABS: Alanine Aminotransferase 92 Units/L (7-52); Albumin 2.4 g/dL (3.5-5.7); Albumin/Globulin Ratio 0.9 (1.1-2.2); Alkaline Phosphatase 110 Units/L (34-104); Aspartate Amino Transferase 64 Units/L (13-39); BUN/Creatinine Ratio 52 (6-26); Bilirubin,Total 0.5 mg/dL (0.3-1.0); Blood Urea Nitrogen 38 mg/dL (8-23); Calcium 8.7 mg/dL (8.6-10.3); Carbon Dioxide 30 mEq/L (23-29); Chloride 108 mEq/L (98-107); Globulin 2.6 g/dL (2.4-3.5); Glucose 172 mg/dL (70-105); Osmolality,Calculated 307 (280-300); Phosphorous 4.2 mg/dL (2.7-4.5); Potassium 4.1 mEq/L (3.5-5.1); Sodium 142 mEq/L (136-145); eGFR For African Americans > 60 (> 60); eGFR For Non-African Americans > 60 (> 60)
[2022-02-01 04:10] LABS: ABG Base Excess 2 mEq/L (-2 to 3); ABG HCO3 27 mEq/L (21-27); ABG Oxygen Saturation 95 % (95-98); ABG PCO2 43 mmHg (35-45); ABG PH 7.41 pH Units (7.32-7.45); ABG PO2 73 mmHg (85-104); ABG TCO2 28 mEq/L (20-26); Blood Gas VT 450 cc
[2022-02-01] MEDS: Ringers Solution, Lactated 1,000 ML IVC SCH ×2 (04:38→07:38)
[2022-02-01] MEDS: FentaNYL (PF) 1,000 MCG/100 ML IV.SOLN IVC SCH (05:27)
[2022-02-01] MEDS: *HR* Heparin 5,000 UNIT/ML VIAL SQ SCH ×3 (05:32→21:03)
[2022-02-01] MEDS: Dexmedetomidine HCl 400 MCG/100 ML MLS IVC SCH (07:35)
[2022-02-01] MEDS: Norepinephrine 4 MG/254 ML IV.SOLN IVC SCH ×2 (07:37→09:25)
[2022-02-01] MEDS: Chlorhexidine Rinse 15 ML MOUTHWASH MM SCH ×2 (08:56→21:03)
[2022-02-01] MEDS: Pantoprazole 40 MG VIAL IVP SCH (08:56)
[2022-02-01] MEDS: levoFLOXacin 750 MG/150 ML 750 MG/150 ML BAG IVPB SCH (12:58)
[2022-02-01] MEDS ORDERED: Clinimix E 5%-15% SOLUTION 2,000 ML with MVI, adult with vitamin K 10 ML IVC SCH (17:00)
[2022-02-02] MEDS: Artificial Tears SOLN 15 ML BOTTLE BOTH EYES SCH ×6 (00:42→19:51)
[2022-02-02] MEDS: FentaNYL (PF) 1,000 MCG/100 ML IV.SOLN IVC SCH (01:31)
[2022-02-02] MEDS: Dexmedetomidine HCl 400 MCG/100 ML MLS IVC SCH ×2 (02:34→22:04)
[2022-02-02 04:42] LABS: Basophils % 0.7 %; Eosinophils # 0.1 K/mcL (0.0-0.6); Eosinophils % 1.8 %; Hematocrit 25.9 % (37.5-50.1); Hemoglobin 7.9 g/dL (12.9-16.9); Immature Granulocytes % 0.4 % (0-4); Lymphocytes # 1.2 K/mcL (0.6-4.6); Lymphocytes % 27.5 %; Mean Corpuscular HGB Conc 30.5 g/dL (31.6-35.5); Mean Corpuscular Hemoglobin 30.4 pg (28.0-33.3); Mean Corpuscular Volume 99.6 fL (83.0-100.0); Mean Platelet Volume 11.6 fL (9.4-12.4); Monocytes # 0.4 K/mcL (0.0-1.3); Monocytes % 7.8 %; Neutrophils # 2.8 K/mcL (1.6-8.9); Platelet Count 112 K/mcL (140-400); Red Cell Distribution Width 18.5 % (11.5-14.5); Segmented Neutrophils % 61.8 %; White Blood Count 4.5 K/mcL (4.3-11.1)
[2022-02-02 04:48] LABS: ABG Base Excess 4 mEq/L (-2 to 3); ABG HCO3 30 mEq/L (21-27); ABG Oxygen Saturation 100 % (95-98); ABG PCO2 51 mmHg (35-45); ABG PH 7.37 pH Units (7.32-7.45); ABG PO2 394 mmHg (85-104); ABG TCO2 31 mEq/L (20-26); Blood Gas VT 450 cc
[2022-02-02 05:04] LABS: Alanine Aminotransferase 89 Units/L (7-52); Albumin 2.2 g/dL (3.5-5.7); Albumin/Globulin Ratio 0.8 (1.1-2.2); Alkaline Phosphatase 96 Units/L (34-104); Aspartate Amino Transferase 46 Units/L (13-39); BUN/Creatinine Ratio 57 (6-26); Bilirubin,Indirect 0.4 mg/dL (0.0-1.0); Bilirubin,Total 0.4 mg/dL (0.3-1.0); Blood Urea Nitrogen 31 mg/dL (8-23); Calcium 8.4 mg/dL (8.6-10.3); Carbon Dioxide 31 mEq/L (23-29); Chloride 108 mEq/L (98-107); Globulin 2.6 g/dL (2.4-3.5); Glucose 148 mg/dL (70-105); Magnesium 1.7 mg/dL (1.6-2.6); Osmolality,Calculated 303 (280-300); Potassium 3.8 mEq/L (3.5-5.1); Sodium 142 mEq/L (136-145); Total Protein 4.8 g/dL (6.4-8.9); eGFR For African Americans > 60 (> 60); eGFR For Non-African Americans > 60 (> 60)
[2022-02-02] MEDS: *HR* Heparin 5,000 UNIT/ML VIAL SQ SCH ×3 (06:09→22:00)
[2022-02-02] MEDS: Chlorhexidine Rinse 15 ML MOUTHWASH MM SCH ×2 (07:58→21:00)
[2022-02-02] MEDS: Pantoprazole 40 MG VIAL IVP SCH (07:58)
[2022-02-02] MEDS: Potassium Chloride 40 MEQ/200 ML BAG IVPB PRN (08:06)
[2022-02-02] MEDS: levoFLOXacin 750 MG/150 ML 750 MG/150 ML BAG IVPB SCH (11:44)
[2022-02-02] MEDS ORDERED: *HR* Dextrose 50 % in Water (Syg) 50 ML SYRINGE IVP PRN (13:24)
[2022-02-02] MEDS ORDERED: D5% in Water 1,000 ML IVC PRN (13:24)
[2022-02-02] MEDS ORDERED: Dextrose 4 GM Chewable Tablets PO PRN ×2 (13:24)
[2022-02-02] MEDS: Insulin LISPRO 300 UNITS/3 ML VIAL SUBQ SCH ×2 (16:52→19:52)
[2022-02-02] MEDS ORDERED: Clinimix E 5%-15% SOLUTION 2,000 ML with MVI, adult with vitamin K 10 ML IVC SCH (17:00)
[2022-02-03] MEDS: FentaNYL (PF) 1,000 MCG/100 ML IV.SOLN IVC SCH ×2 (00:22→16:54)
[2022-02-03] MEDS: Insulin LISPRO 300 UNITS/3 ML VIAL SUBQ SCH ×7 (00:25→23:54)
[2022-02-03] MEDS: Artificial Tears SOLN 15 ML BOTTLE BOTH EYES SCH ×7 (00:25→23:54)
[2022-02-03] MEDS: *HR* Heparin 5,000 UNIT/ML VIAL SQ SCH ×3 (05:28→20:02)
[2022-02-03 05:42] LABS: Basophils % 0.5 %; Eosinophils # 0.1 K/mcL (0.0-0.6); Eosinophils % 1.4 %; Hematocrit 26.2 % (37.5-50.1); Immature Granulocytes % 0.7 % (0-4); Lymphocytes # 1.2 K/mcL (0.6-4.6); Lymphocytes % 27.1 %; Mean Corpuscular HGB Conc 30.5 g/dL (31.6-35.5); Mean Corpuscular Hemoglobin 30.2 pg (28.0-33.3); Mean Corpuscular Volume 98.9 fL (83.0-100.0); Mean Platelet Volume 11.5 fL (9.4-12.4); Monocytes # 0.3 K/mcL (0.0-1.3); Monocytes % 6.1 %; Neutrophils # 2.7 K/mcL (1.6-8.9); Platelet Count 116 K/mcL (140-400); Red Blood Count 2.65 M/mcL (4.19-5.50); Red Cell Distribution Width 18.6 % (11.5-14.5); Segmented Neutrophils % 64.2 %; White Blood Count 4.2 K/mcL (4.3-11.1)
[2022-02-03 06:02] LABS: Alanine Aminotransferase 71 Units/L (7-52); Albumin 2.2 g/dL (3.5-5.7); Albumin/Globulin Ratio 0.9 (1.1-2.2); Alkaline Phosphatase 98 Units/L (34-104); Aspartate Amino Transferase 24 Units/L (13-39); BUN/Creatinine Ratio 52 (6-26); Bilirubin,Direct 0.1 mg/dL (0.0-0.2); Bilirubin,Indirect 0.3 mg/dL (0.0-1.0); Bilirubin,Total 0.4 mg/dL (0.3-1.0); Blood Urea Nitrogen 29 mg/dL (8-23); Calcium 8.2 mg/dL (8.6-10.3); Carbon Dioxide 28 mEq/L (23-29); Chloride 107 mEq/L (98-107); Globulin 2.5 g/dL (2.4-3.5); Glucose 296 mg/dL (70-105); Magnesium 1.6 mg/dL (1.6-2.6); Osmolality,Calculated 307 (280-300); Phosphorous 3.5 mg/dL (2.7-4.5); Potassium 3.9 mEq/L (3.5-5.1); Sodium 140 mEq/L (136-145); Total Protein 4.7 g/dL (6.4-8.9); eGFR For African Americans > 60 (> 60); eGFR For Non-African Americans > 60 (> 60)
[2022-02-03] MEDS: Pantoprazole 40 MG VIAL IVP SCH (07:44)
[2022-02-03] MEDS: Chlorhexidine Rinse 15 ML MOUTHWASH MM SCH ×2 (07:44→20:01)
[2022-02-03] MEDS: levoFLOXacin 750 MG/150 ML 750 MG/150 ML BAG IVPB SCH (12:02)
[2022-02-03] MEDS: Dexmedetomidine HCl 400 MCG/100 ML MLS IVC SCH (13:41)
[2022-02-03] MEDS ORDERED: Clinimix E 5%-15% SOLUTION 2,000 ML with MVI, adult with vitamin K 10 ML IVC SCH (17:00)
[2022-02-04] MEDS: Artificial Tears SOLN 15 ML BOTTLE BOTH EYES SCH ×5 (03:50→19:41)
[2022-02-04] MEDS: Insulin LISPRO 300 UNITS/3 ML VIAL SUBQ SCH ×6 (03:50→23:45)
[2022-02-04 04:44] LABS: VBG Ionized Calcium 1.24 mmol/L (1.15-1.35)
[2022-02-04 04:53] LABS: Basophils % 0.3 %; Eosinophils # 0.1 K/mcL (0.0-0.6); Eosinophils % 1.8 %; Hematocrit 26.5 % (37.5-50.1); Hemoglobin 8.2 g/dL (12.9-16.9); Immature Granulocytes % 0.5 % (0-4); Lymphocytes # 1.1 K/mcL (0.6-4.6); Mean Corpuscular HGB Conc 30.9 g/dL (31.6-35.5); Mean Corpuscular Volume 97.1 fL (83.0-100.0); Mean Platelet Volume 11.5 fL (9.4-12.4); Monocytes # 0.3 K/mcL (0.0-1.3); Monocytes % 6.9 %; Neutrophils # 2.5 K/mcL (1.6-8.9); Platelet Count 146 K/mcL (140-400); Red Blood Count 2.73 M/mcL (4.19-5.50); Red Cell Distribution Width 18.6 % (11.5-14.5); Segmented Neutrophils % 63.5 %; White Blood Count 3.9 K/mcL (4.3-11.1)
[2022-02-04 04:58] LABS: Alanine Aminotransferase 51 Units/L (7-52); Albumin 2.2 g/dL (3.5-5.7); Albumin/Globulin Ratio 0.9 (1.1-2.2); Alkaline Phosphatase 90 Units/L (34-104); Aspartate Amino Transferase 15 Units/L (13-39); BUN/Creatinine Ratio 54 (6-26); Bilirubin,Direct 0.1 mg/dL (0.0-0.2); Bilirubin,Indirect 0.3 mg/dL (0.0-1.0); Bilirubin,Total 0.4 mg/dL (0.3-1.0); Blood Urea Nitrogen 26 mg/dL (8-23); Calcium 8.2 mg/dL (8.6-10.3); Carbon Dioxide 29 mEq/L (23-29); Chloride 107 mEq/L (98-107); Globulin 2.5 g/dL (2.4-3.5); Glucose 252 mg/dL (70-105); Magnesium 1.5 mg/dL (1.6-2.6); Osmolality,Calculated 303 (280-300); Phosphorous 3.5 mg/dL (2.7-4.5); Potassium 3.8 mEq/L (3.5-5.1); Sodium 140 mEq/L (136-145); Total Protein 4.7 g/dL (6.4-8.9); eGFR For African Americans > 60 (> 60); eGFR For Non-African Americans > 60 (> 60)
[2022-02-04] MEDS: *HR* Heparin 5,000 UNIT/ML VIAL SQ SCH ×3 (06:43→23:45)
[2022-02-04] MEDS: Pantoprazole 40 MG VIAL IVP SCH (07:38)
[2022-02-04] MEDS: Chlorhexidine Rinse 15 ML MOUTHWASH MM SCH ×2 (07:38→19:45)
[2022-02-04] MEDS ORDERED: Potassium Phosphate 44 MEQ in 0.9 % Sodium Chloride 250 ML IVPB ONE (08:27)
[2022-02-04] MEDS: Insulin DETEMIR 100 UNIT/ML X5UNITS SUBQ SCH ×2 (12:46→19:50)
[2022-02-04] MEDS: levoFLOXacin 750 MG/150 ML 750 MG/150 ML BAG IVPB SCH (13:49)
[2022-02-04] MEDS ORDERED: Clinimix E 5%-15% SOLUTION 2,000 ML with MVI, adult with vitamin K 10 ML, ZN/CU/MN/SE... IVC SCH (17:00)
[2022-02-04] MEDS: Dexmedetomidine HCl 400 MCG/100 ML MLS IVC SCH (19:21)
[2022-02-04] MEDS: FentaNYL (PF) 1,000 MCG/100 ML IV.SOLN IVC SCH (19:21)
[2022-02-05] MEDS: Artificial Tears SOLN 15 ML BOTTLE BOTH EYES SCH ×7 (00:14→23:21)
[2022-02-05] MEDS: Dexmedetomidine HCl 400 MCG/100 ML MLS IVC SCH ×2 (00:21→19:20)
[2022-02-05 03:57] LABS: Basophils % 0.7 %; Eosinophils # 0.1 K/mcL (0.0-0.6); Eosinophils % 1.9 %; Hematocrit 27.9 % (37.5-50.1); Hemoglobin 8.8 g/dL (12.9-16.9); Immature Granulocytes % 0.5 % (0-4); Lymphocytes # 1.2 K/mcL (0.6-4.6); Lymphocytes % 28.8 %; Mean Corpuscular HGB Conc 31.5 g/dL (31.6-35.5); Mean Corpuscular Hemoglobin 30.3 pg (28.0-33.3); Mean Corpuscular Volume 96.2 fL (83.0-100.0); Mean Platelet Volume 11.3 fL (9.4-12.4); Monocytes # 0.2 K/mcL (0.0-1.3); Monocytes % 5.6 %; Neutrophils # 2.7 K/mcL (1.6-8.9); Platelet Count 159 K/mcL (140-400); Red Cell Distribution Width 18.6 % (11.5-14.5); Segmented Neutrophils % 62.5 %; White Blood Count 4.3 K/mcL (4.3-11.1)
[2022-02-05] MEDS: Insulin LISPRO 300 UNITS/3 ML VIAL SUBQ SCH ×6 (03:58→23:28)
[2022-02-05 04:15] LABS: VBG Ionized Calcium 1.23 mmol/L (1.15-1.35)
[2022-02-05 04:18] LABS: Alanine Aminotransferase 43 Units/L (7-52); Albumin 2.3 g/dL (3.5-5.7); Albumin/Globulin Ratio 0.9 (1.1-2.2); Alkaline Phosphatase 97 Units/L (34-104); Aspartate Amino Transferase 14 Units/L (13-39); BUN/Creatinine Ratio 56 (6-26); Bilirubin,Indirect 0.5 mg/dL (0.0-1.0); Bilirubin,Total 0.5 mg/dL (0.3-1.0); Blood Urea Nitrogen 25 mg/dL (8-23); Calcium 8.1 mg/dL (8.6-10.3); Carbon Dioxide 29 mEq/L (23-29); Chloride 105 mEq/L (98-107); Globulin 2.5 g/dL (2.4-3.5); Glucose 178 mg/dL (70-105); Magnesium 1.7 mg/dL (1.6-2.6); Osmolality,Calculated 293 (280-300); Phosphorous 3.5 mg/dL (2.7-4.5); Potassium 3.5 mEq/L (3.5-5.1); Sodium 137 mEq/L (136-145); Total Protein 4.8 g/dL (6.4-8.9); eGFR For African Americans > 60 (> 60); eGFR For Non-African Americans > 60 (> 60)
[2022-02-05] MEDS: *HR* Heparin 5,000 UNIT/ML VIAL SQ SCH ×3 (05:32→22:10)
[2022-02-05] MEDS: Potassium Chloride 40 MEQ/200 ML BAG IVPB PRN ×2 (05:32→12:57)
[2022-02-05] MEDS: Pantoprazole 40 MG VIAL IVP SCH (08:48)
[2022-02-05] MEDS: Chlorhexidine Rinse 15 ML MOUTHWASH MM SCH ×2 (08:48→19:20)
[2022-02-05] MEDS: FentaNYL (PF) 1,000 MCG/100 ML IV.SOLN IVC SCH ×2 (08:48→23:22)
[2022-02-05] MEDS: Insulin DETEMIR 100 UNIT/ML X5UNITS SUBQ SCH ×2 (08:51→19:31)
[2022-02-05] MEDS: levoFLOXacin 750 MG/150 ML 750 MG/150 ML BAG IVPB SCH (11:35)
[2022-02-05 12:30] LABS: Magnesium 1.9 mg/dL (1.6-2.6); Potassium 3.7 mEq/L (3.5-5.1)
[2022-02-05] MEDS ORDERED: Clinimix E 5%-15% SOLUTION 2,000 ML, Amino Acids 10% 200 ML with MVI, adult with vita... IVC SCH (17:00)
[2022-02-06] MEDS: Artificial Tears SOLN 15 ML BOTTLE BOTH EYES SCH ×5 (03:19→19:26)
[2022-02-06] MEDS: Insulin LISPRO 300 UNITS/3 ML VIAL SUBQ SCH ×5 (03:25→19:40)
[2022-02-06 04:03] LABS: Basophils % 0.5 %; Eosinophils # 0.1 K/mcL (0.0-0.6); Eosinophils % 2.6 %; Hematocrit 27.7 % (37.5-50.1); Hemoglobin 8.7 g/dL (12.9-16.9); Immature Granulocytes % 0.7 % (0-4); Lymphocytes % 24.2 %; Mean Corpuscular HGB Conc 31.4 g/dL (31.6-35.5); Mean Corpuscular Hemoglobin 30.5 pg (28.0-33.3); Mean Corpuscular Volume 97.2 fL (83.0-100.0); Mean Platelet Volume 11.4 fL (9.4-12.4); Monocytes # 0.2 K/mcL (0.0-1.3); Monocytes % 5.6 %; Neutrophils # 2.8 K/mcL (1.6-8.9); Platelet Count 177 K/mcL (140-400); Red Blood Count 2.85 M/mcL (4.19-5.50); Red Cell Distribution Width 18.6 % (11.5-14.5); Segmented Neutrophils % 66.4 %; White Blood Count 4.3 K/mcL (4.3-11.1)
[2022-02-06 04:05] LABS: VBG Ionized Calcium 1.21 mmol/L (1.15-1.35)
[2022-02-06 04:19] LABS: Alanine Aminotransferase 32 Units/L (7-52); Albumin 2.3 g/dL (3.5-5.7); Alkaline Phosphatase 93 Units/L (34-104); Aspartate Amino Transferase 12 Units/L (13-39); BUN/Creatinine Ratio 49 (6-26); Bilirubin,Indirect 0.4 mg/dL (0.0-1.0); Bilirubin,Total 0.4 mg/dL (0.3-1.0); Blood Urea Nitrogen 21 mg/dL (8-23); Calcium 7.8 mg/dL (8.6-10.3); Carbon Dioxide 28 mEq/L (23-29); Chloride 104 mEq/L (98-107); Globulin 2.4 g/dL (2.4-3.5); Glucose 231 mg/dL (70-105); Magnesium 1.9 mg/dL (1.6-2.6); Osmolality,Calculated 290 (280-300); Phosphorous 3.5 mg/dL (2.7-4.5); Sodium 135 mEq/L (136-145); Total Protein 4.7 g/dL (6.4-8.9); eGFR For African Americans > 60 (> 60); eGFR For Non-African Americans > 60 (> 60)
[2022-02-06] MEDS: *HR* Heparin 5,000 UNIT/ML VIAL SQ SCH ×2 (05:43→12:57)
[2022-02-06] MEDS: Pantoprazole 40 MG VIAL IVP SCH (08:38)
[2022-02-06] MEDS: Insulin DETEMIR 100 UNIT/ML X5UNITS SUBQ SCH ×2 (08:39→20:08)
[2022-02-06] MEDS: Chlorhexidine Rinse 15 ML MOUTHWASH MM SCH ×2 (08:46→19:59)
[2022-02-06] MEDS: levoFLOXacin 750 MG/150 ML 750 MG/150 ML BAG IVPB SCH (12:56)
[2022-02-06] MEDS: Dexmedetomidine HCl 400 MCG/100 ML MLS IVC SCH (15:24)
[2022-02-06] MEDS ORDERED: Clinimix E 5%-15% SOLUTION 2,000 ML, Amino Acids 10% 200 ML with MVI, adult with vita... IVC SCH ×2 (17:00→19:34)
[2022-02-06] MEDS ORDERED: Saliva Stimulant 44.3ml BOTTLE PO PRN (19:34)
[2022-02-06] MEDS ORDERED: Naloxone 0.4 MG/ML INJ IVP PRN (19:34)
[2022-02-06] MEDS ORDERED: Chloraseptic Spray 177 ML BOTTLE MM PRN (19:34)
[2022-02-06] MEDS ORDERED: D10% in Water 500 ML IVC PRN (19:34)
[2022-02-06] MEDS ORDERED: Ondansetron ODT 4 MG TAB.RAPDIS SL PRN (19:34)
[2022-02-06] MEDS ORDERED: D5% in Water 1,000 ML IVC PRN (19:34)
[2022-02-06] MEDS ORDERED: Ipratropium/Albuterol Neb 3 ML IH PRN (19:34)
[2022-02-06] MEDS ORDERED: *HR* Alteplase (Cathflo) 2 MG VIAL IVP PRN (19:34)
[2022-02-06] MEDS ORDERED: *HR* Dextrose 50 % in Water (Syg) 50 ML SYRINGE IVP PRN (19:34)
[2022-02-06] MEDS ORDERED: Dextrose 4 GM Chewable Tablets PO PRN ×2 (19:34)
[2022-02-06] MEDS ORDERED: *HR* Metoprolol 5 MG/5 ML VIAL IVP PRN (19:34)
[2022-02-06] MEDS ORDERED: Artificial Tears SOLN 15 ML BOTTLE BOTH EYES PRN (19:34)
[2022-02-07] MEDS: Insulin LISPRO 300 UNITS/3 ML VIAL SUBQ SCH ×6 (00:30→20:56)
[2022-02-07] MEDS: *HR* Heparin 5,000 UNIT/ML VIAL SQ SCH ×4 (01:49→20:56)
[2022-02-07 03:32] LABS: Basophils % 0.5 %; Eosinophils # 0.1 K/mcL (0.0-0.6); Eosinophils % 3.1 %; Hematocrit 28.3 % (37.5-50.1); Hemoglobin 8.9 g/dL (12.9-16.9); Immature Granulocytes % 0.7 % (0-4); Lymphocytes % 24.7 %; Mean Corpuscular HGB Conc 31.4 g/dL (31.6-35.5); Mean Corpuscular Hemoglobin 30.5 pg (28.0-33.3); Mean Corpuscular Volume 96.9 fL (83.0-100.0); Mean Platelet Volume 11.1 fL (9.4-12.4); Monocytes # 0.3 K/mcL (0.0-1.3); Monocytes % 6.2 %; Neutrophils # 2.7 K/mcL (1.6-8.9); Platelet Count 182 K/mcL (140-400); Red Blood Count 2.92 M/mcL (4.19-5.50); Red Cell Distribution Width 18.6 % (11.5-14.5); Segmented Neutrophils % 64.8 %; White Blood Count 4.2 K/mcL (4.3-11.1)
[2022-02-07 03:38] LABS: VBG Ionized Calcium 1.15 mmol/L (1.15-1.35)
[2022-02-07 03:48] LABS: Alanine Aminotransferase 24 Units/L (7-52); Albumin 2.3 g/dL (3.5-5.7); Alkaline Phosphatase 95 Units/L (34-104); Aspartate Amino Transferase 11 Units/L (13-39); BUN/Creatinine Ratio 51 (6-26); Bilirubin,Direct 0.1 mg/dL (0.0-0.2); Bilirubin,Indirect 0.3 mg/dL (0.0-1.0); Bilirubin,Total 0.4 mg/dL (0.3-1.0); Blood Urea Nitrogen 21 mg/dL (8-23); Calcium 7.8 mg/dL (8.6-10.3); Carbon Dioxide 27 mEq/L (23-29); Chloride 101 mEq/L (98-107); Globulin 2.3 g/dL (2.4-3.5); Glucose 227 mg/dL (70-105); Magnesium 1.6 mg/dL (1.6-2.6); Osmolality,Calculated 284 (280-300); Phosphorous 3.4 mg/dL (2.7-4.5); Potassium 3.9 mEq/L (3.5-5.1); Sodium 132 mEq/L (136-145); Total Protein 4.6 g/dL (6.4-8.9); eGFR For African Americans > 60 (> 60); eGFR For Non-African Americans > 60 (> 60)
[2022-02-07] MEDS: Pantoprazole 40 MG VIAL IVP SCH (08:11)
[2022-02-07] MEDS: Chlorhexidine Rinse 15 ML MOUTHWASH MM SCH ×2 (08:11→20:56)
[2022-02-07] MEDS: Insulin DETEMIR 100 UNIT/ML X5UNITS SUBQ SCH ×2 (08:13→20:58)
[2022-02-07] MEDS ORDERED: levoFLOXacin 750 MG/150 ML 750 MG/150 ML BAG IVPB SCH (13:00)
[2022-02-07] MEDS ORDERED: Clinimix E 5%-15% SOLUTION 2,000 ML, Amino Acids 10% 200 ML with MVI, adult with vita... IVC SCH ×2 (17:00)
[2022-02-08] MEDS: Insulin LISPRO 300 UNITS/3 ML VIAL SUBQ SCH ×6 (00:43→22:33)
[2022-02-08 04:27] LABS: Basophils % 0.5 %; Eosinophils # 0.1 K/mcL (0.0-0.6); Eosinophils % 2.3 %; Hematocrit 28.1 % (37.5-50.1); Hemoglobin 9.1 g/dL (12.9-16.9); Immature Granulocytes % 1.4 % (0-4); Lymphocytes # 1.2 K/mcL (0.6-4.6); Lymphocytes % 27.8 %; Mean Corpuscular HGB Conc 32.4 g/dL (31.6-35.5); Mean Corpuscular Hemoglobin 30.7 pg (28.0-33.3); Mean Corpuscular Volume 94.9 fL (83.0-100.0); Mean Platelet Volume 11.1 fL (9.4-12.4); Monocytes # 0.3 K/mcL (0.0-1.3); Monocytes % 7.1 %; Neutrophils # 2.7 K/mcL (1.6-8.9); Platelet Count 205 K/mcL (140-400); Red Blood Count 2.96 M/mcL (4.19-5.50); Red Cell Distribution Width 18.8 % (11.5-14.5); Segmented Neutrophils % 60.9 %; White Blood Count 4.4 K/mcL (4.3-11.1)
[2022-02-08 04:33] LABS: VBG Ionized Calcium 1.22 mmol/L (1.15-1.35)
[2022-02-08 04:40] LABS: Alanine Aminotransferase 22 Units/L (7-52); Albumin 2.4 g/dL (3.5-5.7); Alkaline Phosphatase 103 Units/L (34-104); Aspartate Amino Transferase 11 Units/L (13-39); BUN/Creatinine Ratio 44 (6-26); Bilirubin,Direct 0.1 mg/dL (0.0-0.2); Bilirubin,Indirect 0.3 mg/dL (0.0-1.0); Bilirubin,Total 0.4 mg/dL (0.3-1.0); Blood Urea Nitrogen 20 mg/dL (8-23); Calcium 7.9 mg/dL (8.6-10.3); Carbon Dioxide 28 mEq/L (23-29); Chloride 99 mEq/L (98-107); Globulin 2.5 g/dL (2.4-3.5); Glucose 258 mg/dL (70-105); Magnesium 1.7 mg/dL (1.6-2.6); Osmolality,Calculated 283 (280-300); Phosphorous 2.9 mg/dL (2.7-4.5); Potassium 3.8 mEq/L (3.5-5.1); Sodium 131 mEq/L (136-145); Total Protein 4.9 g/dL (6.4-8.9); eGFR For African Americans > 60 (> 60); eGFR For Non-African Americans > 60 (> 60)
[2022-02-08] MEDS: *HR* Heparin 5,000 UNIT/ML VIAL SQ SCH ×3 (06:12→22:33)
[2022-02-08] MEDS: Chlorhexidine Rinse 15 ML MOUTHWASH MM SCH ×2 (07:39→22:35)
[2022-02-08] MEDS: Pantoprazole 40 MG VIAL IVP SCH (07:39)
[2022-02-08] MEDS: Insulin DETEMIR 100 UNIT/ML X5UNITS SUBQ SCH ×2 (07:39→22:33)
[2022-02-08] MEDS ORDERED: Furosemide 40 MG/4 ML VIAL IVP ONE (08:03)
[2022-02-08] MEDS ORDERED: Clinimix E 5%-15% SOLUTION 2,000 ML, Amino Acids 10% 200 ML with MVI, adult with vita... IVC SCH (17:00)
[2022-02-09] MEDS: Insulin LISPRO 300 UNITS/3 ML VIAL SUBQ SCH ×6 (01:58→19:30)
[2022-02-09] MEDS: *HR* Heparin 5,000 UNIT/ML VIAL SQ SCH (04:47)
[2022-02-09] MEDS: Insulin DETEMIR 100 UNIT/ML X5UNITS SUBQ SCH ×2 (07:53→19:30)
[2022-02-09] MEDS: Chlorhexidine Rinse 15 ML MOUTHWASH MM SCH ×2 (07:54→20:21)
[2022-02-09] MEDS: Pantoprazole 40 MG VIAL IVP SCH (07:54)
[2022-02-09] MEDS ORDERED: Furosemide 20 MG/2 ML VIAL IVP ONE (16:56)
[2022-02-09] MEDS ORDERED: Clinimix E 5%-15% SOLUTION 2,000 ML, Amino Acids 10% 200 ML with MVI, adult with vita... IVC SCH (17:00)
[2022-02-09 17:57] LABS: Basophils % 0.7 %; Eosinophils # 0.1 K/mcL (0.0-0.6); Eosinophils % 2.7 %; Hematocrit 26.3 % (37.5-50.1); Hemoglobin 8.9 g/dL (12.9-16.9); Immature Granulocytes % 1.6 % (0-4); Lymphocytes # 1.6 K/mcL (0.6-4.6); Mean Corpuscular HGB Conc 33.8 g/dL (31.6-35.5); Mean Corpuscular Hemoglobin 31.1 pg (28.0-33.3); Mean Platelet Volume 11.2 fL (9.4-12.4); Monocytes # 0.4 K/mcL (0.0-1.3); Monocytes % 8.1 %; Neutrophils # 2.3 K/mcL (1.6-8.9); Platelet Count 185 K/mcL (140-400); Red Blood Count 2.86 M/mcL (4.19-5.50); Red Cell Distribution Width 18.7 % (11.5-14.5); Segmented Neutrophils % 51.9 %; White Blood Count 4.5 K/mcL (4.3-11.1)
[2022-02-09 18:14] LABS: Alanine Aminotransferase 18 Units/L (7-52); Albumin 2.1 g/dL (3.5-5.7); Alkaline Phosphatase 88 Units/L (34-104); Aspartate Amino Transferase 25 Units/L (13-39); BUN/Creatinine Ratio 47 (6-26); Bilirubin,Total 0.5 mg/dL (0.3-1.0); Blood Urea Nitrogen 17 mg/dL (8-23); Calcium 7.5 mg/dL (8.6-10.3); Carbon Dioxide 27 mEq/L (23-29); Chloride 102 mEq/L (98-107); Globulin 2.1 g/dL (2.4-3.5); Glucose 197 mg/dL (70-105); Magnesium 1.7 mg/dL (1.6-2.6); Osmolality,Calculated 279 (280-300); Phosphorous 4.1 mg/dL (2.7-4.5); Potassium 5.9 mEq/L (3.5-5.1); Sodium 131 mEq/L (136-145); Total Protein 4.2 g/dL (6.4-8.9); Triglycerides 118 mg/dL (< 150); eGFR For African Americans > 60 (> 60); eGFR For Non-African Americans > 60 (> 60)
[2022-02-10] MEDS: Insulin LISPRO 300 UNITS/3 ML VIAL SUBQ SCH ×6 (00:49→20:57)
[2022-02-10 07:20] LABS: Alanine Aminotransferase 18 Units/L (7-52); Albumin 2.5 g/dL (3.5-5.7); Albumin/Globulin Ratio 0.9 (1.1-2.2); Alkaline Phosphatase 100 Units/L (34-104); Aspartate Amino Transferase 10 Units/L (13-39); BUN/Creatinine Ratio 43 (6-26); Bilirubin,Total 0.4 mg/dL (0.3-1.0); Blood Urea Nitrogen 19 mg/dL (8-23); Calcium 7.9 mg/dL (8.6-10.3); Carbon Dioxide 31 mEq/L (23-29); Chloride 99 mEq/L (98-107); Globulin 2.7 g/dL (2.4-3.5); Glucose 321 mg/dL (70-105); Magnesium 1.7 mg/dL (1.6-2.6); Osmolality,Calculated 287 (280-300); Potassium 3.7 mEq/L (3.5-5.1); Sodium 131 mEq/L (136-145); Total Protein 5.2 g/dL (6.4-8.9); eGFR For African Americans > 60 (> 60); eGFR For Non-African Americans > 60 (> 60)
[2022-02-10] MEDS: Insulin DETEMIR 100 UNIT/ML X5UNITS SUBQ SCH ×2 (08:56→21:00)
[2022-02-10] MEDS: Pantoprazole 40 MG VIAL IVP SCH (08:56)
[2022-02-10] MEDS: Chlorhexidine Rinse 15 ML MOUTHWASH MM SCH ×2 (08:57→21:06)
[2022-02-10] MEDS ORDERED: *HR* Propofol 200 MG/20 ML VIAL IVP ONE (11:54)
[2022-02-10] MEDS ORDERED: Lidocaine -MPF 2% 2 ML VIAL ONE (11:54)
[2022-02-10] MEDS ORDERED: *HR* OxyCODONE Immed Rel 5 MG TABLET PO PRN (12:04)
[2022-02-10] MEDS ORDERED: *HR* HYDROmorphone PF 0.5 MG/0.5 ML SYRINGE IVP PRN (12:04)
[2022-02-10] MEDS: *HR* Heparin 5,000 UNIT/ML VIAL SQ SCH ×2 (14:29→21:01)
[2022-02-10] MEDS ORDERED: Clinimix E 5%-15% SOLUTION 2,000 ML, Amino Acids 10% 200 ML with MVI, adult with vita... IVC SCH (17:00)
[2022-02-11] MEDS: Insulin LISPRO 300 UNITS/3 ML VIAL SUBQ SCH ×4 (01:03→12:58)
[2022-02-11 05:03] LABS: BUN/Creatinine Ratio 44 (6-26); Blood Urea Nitrogen 18 mg/dL (8-23); Calcium 8.1 mg/dL (8.6-10.3); Carbon Dioxide 28 mEq/L (23-29); Chloride 98 mEq/L (98-107); Glucose 302 mg/dL (70-105); Magnesium 1.7 mg/dL (1.6-2.6); Osmolality,Calculated 285 (280-300); Potassium 3.9 mEq/L (3.5-5.1); Sodium 131 mEq/L (136-145); eGFR For African Americans > 60 (> 60); eGFR For Non-African Americans > 60 (> 60)
[2022-02-11] MEDS: *HR* Heparin 5,000 UNIT/ML VIAL SQ SCH (05:42)
[2022-02-11] MEDS: Nystatin POWDER 30 GM BOTTLE TP SCH ×2 (06:16→09:29)
[2022-02-11] MEDS: Insulin DETEMIR 100 UNIT/ML X5UNITS SUBQ SCH (09:20)
[2022-02-11] MEDS: Chlorhexidine Rinse 15 ML MOUTHWASH MM SCH (09:20)
[2022-02-11] MEDS: Pantoprazole 40 MG VIAL IVP SCH (09:21)
[2022-02-11 15:34] VITALS: BP 158/84; PULSE 93; TEMP 98.5; O2SAT 99
== END 2022-02-11 17:44 | DRG 329 ==
LOC: 3NENU 09:17 → EMEROOARM 09:17 → 3NENU 14:16 → SUATTDRO 19:54 → 2NNU 12-23 14:46 → 3NENU 01-07 12:10 → ICNU 01-22 00:21 → 2NNU 02-06 22:42 → 2ANU 02-09 14:08
PROVIDERS: ADMIT Internal Medicine; ATTEND General Practice